=== PATIENT | male | born 1965 | race Caucasian/White ===

== ENCOUNTER 2019-01-11 16:40 | Emergency (ER) | payer MEDICARE, MEDICAID, SELFPAY ==
--- NOTE | 2019-01-11 19:57 | ED.GENADULT ---
HPI - General Adult General Stated complaint: SCIATICA PAIN History of Present Illness HPI narrative: Patient left without being seen. Related Data Home Medications Medication Instructions Recorded Confirmed amlodipine 10 mg PO QDAY #0 06/21/17 atorvastatin [Lipitor] 40 mg PO QDAY #0 06/21/17 gabapentin [Neurontin] 300 mg PO TID #0 06/21/17 insulin glargine [Basaglar KwikPen 100 unit SQ QDAY #0 06/21/17 U-100 Insulin] insulin glulisine U-100 [Apidra 25 unit SQ TID #0 06/21/17 SoloStar U-100 Insulin] lisinopril 40 mg PO QDAY #0 06/21/17 omeprazole 20 mg PO QDAY #0 06/21/17 Previous Rx's Medication Instructions Recorded cyclobenzaprine 5 mg PO TID PRN #14 tab 06/21/17 hydrocodone-acetaminophen [[place]] 1 tab PO Q4HP PRN #10 tab 06/21/17 [id number]-[id number] 1 - 2 tab PO Q4HP PRN #12 tab 06/24/17 Allergies Allergy/AdvReac Type Severity Reaction Status Date / Time No Known Allergies Allergy Uncoded 09/09/17 12:37 Discharge Plan Departure Patient Disposition: Left Without Being Seen Clinical Impression: Patient left without being seen Discharge Date/Time: 01/11/19 17:21 Interventions: ED Discharge Assessment Last Done: 01/11/19 17:17
== END 2019-01-11 17:21 | disposition left against medical advice (07) ==
PROVIDERS: Emergency Provider Emergency Medicine; Family Provider Nurse Practitioner Gerontology; PCP Nurse Practitioner Gerontology
DX: M54.9 Dorsalgia, unspecified (principal)
CPT/HCPCS: 99281

== ENCOUNTER 2019-02-21 23:31 | Emergency (ER) | payer MEDICARE, MEDICAID, SELFPAY ==
[2019-02-21 23:36] VITALS: BP 152/75; PULSE 82; RESP 16; TEMP 36.6; O2SAT 100; BMI 37.8
--- NOTE | 2019-02-21 23:50 | ED.CHESTPAIN ---
HPI - Chest Pain General Chief Complaint: Chest Pain Stated Complaint: states weird heart problem Time Seen by Provider: 02/21/19 23:35 Source: patient and family Mode of arrival: Wheelchair Limitations: no limitations History of Present Illness HPI narrative: 53-year-old male who is an insulin-dependent diabetic here for evaluation of multiple symptoms. He describes a left-sided chest discomfort. He states that it started earlier this afternoon his. Has been consistent since then. He also describes a headache and a pressure in his head. He also states that his blood sugars have been elevated recently. He is taking his medications. He is under quite a bit of stress secondary to mental health issues with his son. Has not tried anything for symptoms prior to arrival. States the left-sided chest pain is not worse with palpation or movement or breathing. It actually has improved somewhat since the onset however it is still there. Related Data Home Medications Medication Instructions Recorded Confirmed amlodipine 10 mg PO QDAY #0 06/21/17 atorvastatin [Lipitor] 40 mg PO QDAY #0 06/21/17 gabapentin [Neurontin] 300 mg PO TID #0 06/21/17 insulin glargine [Basaglar KwikPen 100 unit SQ QDAY #0 06/21/17 U-100 Insulin] insulin glulisine U-100 [Apidra 25 unit SQ TID #0 06/21/17 SoloStar U-100 Insulin] lisinopril 40 mg PO QDAY #0 06/21/17 omeprazole 20 mg PO QDAY #0 06/21/17 Previous Rx's Medication Instructions Recorded cyclobenzaprine 5 mg PO TID PRN #14 tab 06/21/17 hydrocodone-acetaminophen [[place]] 1 tab PO Q4HP PRN #10 tab 06/21/17 [id number]-[id number]-zvwy 1 - 2 tab PO Q4HP PRN #12 tab 06/24/17 Allergies Allergy/AdvReac Type Severity Reaction Status Date / Time No Known Allergies Allergy Uncoded 09/09/17 12:37 Review of Systems Constitutional Constitutional: Denies fever(s) and Reports headache(s) Eyes Eyes: Denies blurry vision and Denies change in vision ENT Ears, Nose, Mouth, and Throat: Reports headache(s) Cardiovascular Cardiovascular: Reports chest pain, Denies diaphoresis, Denies edema, Denies palpitations and Denies dyspnea Respiratory Respiratory: Denies cough and Denies dyspnea Gastrointestinal Gastrointestinal: Denies abdominal pain, Denies nausea and Denies vomiting Genitourinary Genitourinary: Denies dysuria Musculoskeletal Musculoskeletal: Denies myalgias and Denies arthralgias Integumentary/Breasts Skin/Breast: Denies lesions and Denies rash Neurologic Neurologic: Denies behavioral changes and Reports headache(s) Psychiatric Psychiatric: Denies behavioral changes Endocrine Endocrine: Denies palpitations Hematologic/Lymphatic Hematologic/Lymphatic: Denies easy bleeding and Denies easy bruising [facility] Medical History Diabetes (Acute) Hyperlipidemia (Acute) Hypertension (Acute) Social History marital status: lives independently: Yes Social History marital status: lives independently: Yes Exam Initial Vital Signs Initial Vital Signs: Vital Signs Temperature 97.9 F 02/21/19 23:36 Pulse Rate 82 02/21/19 23:36 Respiratory Rate 16 02/21/19 23:36 Blood Pressure 152/75 H 02/21/19 23:36 Pulse Oximetry 100 02/21/19 23:36 Const General: No comfortable (Uncomfortable), well developed and well groomed Orientation: alert, awake and oriented x3 HENMT Head: normal to inspection and normocephalic Nose: external nose normal Eyes Eyelids: eyelids normal Pupils: PERRL Resp Effort & Inspection: normal respiratory effort Auscultation: clear to auscultation bilaterally Cardio Rate: regular rate Rhythm: regular rhythm GI Inspection: non-distended Palpation: soft, No firm and No tender Skin Lesions: no lesions Rashes: no rashes Neuro General: alert and awake Cranial Nerves: CN's II-XI intact bilaterally Cognition: normal cognition Speech: speech normal Motor: muscle tone normal throughout Sensory Exam: no sensory deficits noted Extrem General: normal to inspection and capillary refill normal Psych Appearance: grossly normal and well kempt Course Orders Ordered: ED Orders 02/21/19 23:37 EKG-12 Lead Stat 02/21/19 23:45 Basic Metabolic Panel Stat Complete Blood Count AUTO DIFF Stat Partial Thromboplastin Time Stat Prothrombin Time INR Stat Troponin I Stat 02/21/19 23:51 XR chest 1V Stat 02/22/19 00:22 Ketones (Beta-Hydroxybutyrate) Stat Magnesium Stat Phosphorous Stat Venous Blood Gas Stat 02/22/19 01:32 CT head/brain wo con Stat 02/22/19 03:22 Basic Metabolic Panel Stat Troponin I Stat Discontinued Medications Diphenhydramine HCl (Benadryl) 25 mg IV NOW ONE Stop: 02/21/19 23:56 Last Admin: 02/22/19 00:29 Dose: 25 mg Documented by: STORMY Sodium Chloride (Normal Saline 0.9%) 1,000 mls @ 1,000 mls/hr IV BOLUS ONE Stop: 02/22/19 01:20 Last Infusion: 02/22/19 02:26 Dose: 0 mls/hr Documented by: Admin: 02/22/19 00:30 Dose: 1,000 mls/hr Documented by: STORMY Sodium Chloride (Normal Saline 0.9%) 1,000 mls @ 1,000 mls/hr IV BOLUS ONE Stop: 02/22/19 03:09 Last Admin: 02/22/19 02:27 Dose: 1,000 mls/hr Documented by: STORMY Metoclopramide HCl (Reglan) 10 mg IV NOW ONE Stop: 02/21/19 23:56 Last Admin: 02/22/19 00:29 Dose: 10 mg Documented by: STORMY Oxymetazoline HCl (Afrin) 2 sprays NASAL NOW ONE Stop: 02/22/19 02:27 Last Admin: 02/22/19 02:42 Dose: 2 sprays Documented by: STORMY Vital Signs Vital signs: Vital Signs - 8 hr 02/21/19 23:36 02/22/19 01:05 02/22/19 02:18 Temperature 97.9 F Pulse Rate 82 78 71 Respiratory Rate 16 17 15 Blood Pressure 152/75 H Blood Pressure [Right Arm] 128/71 115/65 Pulse Oximetry 100 92 95 02/22/19 04:33 Temperature Pulse Rate 74 Respiratory Rate 14 Blood Pressure 139/87 Blood Pressure [Right Arm] Pulse Oximetry 96 MDM - Chest Pain Medical Records Data Attestation: I reviewed the patient's medical records. Lab Data Attestation: I reviewed the patient's lab results. Result diagrams: 02/21/19 23:45 02/22/19 03:22 Labs: Lab Results 02/21/19 02/21/19 02/21/19 Range/Units 23:45 23:45 23:45 WBC 9.2 (4.5-11.0) X10^3/uL RBC 4.28 L (4.5-5.9) X10^6/uL Hgb 11.8 L (13.5-17.5) g/dL Hct 35.5 L (41-53) % MCV 82.9 (80-100) fL MCH 27.5 (26-34) PG MCHC 33.2 (30-36) % RDW 14.4 (11.6-14.8) % Plt Count 228 (150-400) X10^3/uL Neut % (Auto) 73.1 (50-75) % Lymph % (Auto) 19.5 L (25-40) % [place] % (Auto) 5.5 (3-14) % Eos % (Auto) 1.3 L (2-4) % Baso % (Auto) 0.6 (0-2) % Neut # (Auto) 6700 (4476-8462) /uL Lymph # (Auto) 1800 (7238-6382) /uL [place] # (Auto) 500 (0-900) /uL Eos # (Auto) 100 (0-450) /uL Baso # (Auto) 100 (0-100) /uL PT 10.0 L (10.1-12.7) SECONDS INR 0.9 (0.9-1.3) APTT 30 (26.4-36.2) SECONDS VBG pH (7.33-7.43) VBG pCO2 (45-50) mmHg VBG pO2 (35-45) mmHg VBG HCO3 (23-28) mmol/L VBG Total CO2 (24-29) mmol/L VBG O2 Saturation (70-75) % VBG Base Excess (0-4) mmol/L Sodium 129 L (137-145) mmol/L Potassium 5.2 H (3.4-5.1) mmol/L Chloride 93 L (98-107) mmol/L Carbon Dioxide 26 (22-32) mmol/L BUN 33 H (9-20) mg/dL Creatinine 2.10 H (0.66-1.25) mg/dL Estimated GFR 33.3 L (>60) mL/min BUN/Creatinine Ratio 15.7 (6-22) Glucose 675 H* (70-100) mg/dL Calcium 9.0 (8.4-10.2) mg/dL Phosphorus (2.5-4.5) mg/dL Magnesium (1.6-2.3) mg/dL Troponin I (0.01-0.034) ng/mL Ketones (<0.27) mmol/L 02/21/19 02/21/19 02/22/19 Range/Units 23:45 23:45 00:22 WBC (4.5-11.0) X10^3/uL RBC (4.5-5.9) X10^6/uL Hgb (13.5-17.5) g/dL Hct (41-53) % MCV (80-100) fL MCH (26-34) PG MCHC (30-36) % RDW (11.6-14.8) % Plt Count (150-400) X10^3/uL Neut % (Auto) (50-75) % Lymph % (Auto) (25-40) % [place] % (Auto) (3-14) % Eos % (Auto) (2-4) % Baso % (Auto) (0-2) % Neut # (Auto) (6596-2985) /uL Lymph # (Auto) (8805-5938) /uL [place] # (Auto) (0-900) /uL Eos # (Auto) (0-450) /uL Baso # (Auto) (0-100) /uL PT (10.1-12.7) SECONDS INR (0.9-1.3) APTT (26.4-36.2) SECONDS VBG pH 7.39 (7.33-7.43) VBG pCO2 39.3 L (45-50) mmHg VBG pO2 45 (35-45) mmHg VBG HCO3 24 (23-28) mmol/L VBG Total CO2 25 (24-29) mmol/L VBG O2 Saturation 81 H (70-75) % VBG Base Excess -1.0 L (0-4) mmol/L Sodium (137-145) mmol/L Potassium (3.4-5.1) mmol/L Chloride (98-107) mmol/L Carbon Dioxide (22-32) mmol/L BUN (9-20) mg/dL Creatinine (0.66-1.25) mg/dL Estimated GFR (>60) mL/min BUN/Creatinine Ratio (6-22) Glucose (70-100) mg/dL Calcium (8.4-10.2) mg/dL Phosphorus 3.9 (2.5-4.5) mg/dL Magnesium 2.0 (1.6-2.3) mg/dL Troponin I < 0.012 (0.01-0.034) ng/mL Ketones 0.14 (<0.27) mmol/L 02/22/19 Range/Units 03:22 WBC (4.5-11.0) X10^3/uL RBC (4.5-5.9) X10^6/uL Hgb (13.5-17.5) g/dL Hct (41-53) % MCV (80-100) fL MCH (26-34) PG MCHC (30-36) % RDW (11.6-14.8) % Plt Count (150-400) X10^3/uL Neut % (Auto) (50-75) % Lymph % (Auto) (25-40) % [place] % (Auto) (3-14) % Eos % (Auto) (2-4) % Baso % (Auto) (0-2) % Neut # (Auto) (0369-1995) /uL Lymph # (Auto) (4394-3005) /uL [place] # (Auto) (0-900) /uL Eos # (Auto) (0-450) /uL Baso # (Auto) (0-100) /uL PT (10.1-12.7) SECONDS INR (0.9-1.3) APTT (26.4-36.2) SECONDS VBG pH (7.33-7.43) VBG pCO2 (45-50) mmHg VBG pO2 (35-45) mmHg VBG HCO3 (23-28) mmol/L VBG Total CO2 (24-29) mmol/L VBG O2 Saturation (70-75) % VBG Base Excess (0-4) mmol/L Sodium 135 L (137-145) mmol/L Potassium 4.3 (3.4-5.1) mmol/L Chloride 100 (98-107) mmol/L Carbon Dioxide 26 (22-32) mmol/L BUN 32 H (9-20) mg/dL Creatinine 2.00 H (0.66-1.25) mg/dL Estimated GFR 35.3 L (>60) mL/min BUN/Creatinine Ratio 16.0 (6-22) Glucose 518 H* (70-100) mg/dL Calcium 8.3 L (8.4-10.2) mg/dL Phosphorus (2.5-4.5) mg/dL Magnesium (1.6-2.3) mg/dL Troponin I 0.016 (0.01-0.034) ng/mL Ketones (<0.27) mmol/L Point of Care Testing Glucose POC 500 Imaging Data Chest x-ray: Attestation: I personally reviewed and interpreted this imaging study as follows: My impression: No pneumonia, no pneumothorax, no acute pathology CT scan - head: Radiologist's impression: Preliminary read No acute intracranial pathology. Specifically, no intracranial mass, hemorrhage, or evidence of acute infarction. Chronic sinus mucosal disease ECG Data Attestation: I personally reviewed and interpreted this ECG as follows: Prior ECG tracings: not available for review Interpretation: Sinus rhythm Ventricular rate 84 Left anterior fascicular block LVH Normal QRS Normal QTC Nonspecific ST T wave changes MDM Narrative Medical decision making narrative: Initially had a strong suspicion that his symptoms were anxiety related given his history and physical exam. He was given Reglan and Benadryl for his headache/sinus pressure. He stated that he had minimal relief with the symptoms. He describes the symptoms as a head pressure. He was given Afrin which did seem to help his symptoms somewhat. His EKG was nonspecific. Troponin negative x2. Head CT was unremarkable. Patient was hyperglycemic. This did come down with fluids. He also states that he has not had his night dose of insulin. He is not in DKA. Not acidotic on the VBG. His creatinine is slightly elevated. This did improve somewhat with fluids. He states that he has an appointment with a kidney doctor in the next several days. I have low suspicion for CVA. Low suspicion for TIA. Low suspicion for ACS. His head pressure could very well be this sinus disease noted on the CT scan. We did discuss the use of decongestants. Patient was able to ambulate to the bathroom without any problems. No fevers. Low suspicion for meningitis. We discussed return precautions and follow-up instructions. He expressed understanding and agreement with plan. Discharge Plan Departure Patient Disposition: Home Clinical Impression: Hyperglycemia, Atypical chest pain, Sinus congestion Discharge Date/Time: 02/22/19 04:36 Instructions: DI for Hyperglycemia -- Adult Activity Restrictions/Additional Instructions: I recommend that when you get home you take your night dose of insulin. Also recommend you start on decongestant such as Claritin or Annmarie or Zyrtec or the generic version of 1 of these medications like we discussed. I also recommend that you contact your primary provider for follow-up. Keep your scheduled appointment with your kidney doctor in the next couple weeks. Return to the emergency department for any new or worsening symptoms Prescriptions: No Action amlodipine 10 MG tablet 10 mg PO QDAY Qty: 0 RF: 0 omeprazole 20 MG capsule,delayed release(DR/EC) 20 mg PO QDAY Qty: 0 RF: 0 lisinopril 40 MG tablet 40 mg PO QDAY Qty: 0 RF: 0 atorvastatin [Lipitor] 40 MG tablet 40 mg PO QDAY Qty: 0 RF: 0 gabapentin [Neurontin] 300 MG capsule 300 mg PO TID Qty: 0 RF: 0 insulin glargine [Basaglar KwikPen U-100 Insulin] 100 UNIT/1 ML insulin pen 100 unit SQ QDAY Qty: 0 RF: 0 insulin glulisine U-100 [Apidra SoloStar U-100 Insulin] 100 UNIT/1 ML insulin pen 25 unit SQ TID Qty: 0 RF: 0 hydrocodone-acetaminophen [[place]] 5 MG/325 MG tablet 1 tab PO Q4HP PRNQty: 10 RF: 0 cyclobenzaprine 5 MG tablet 5 mg PO TID PRNQty: 14 RF: 0 vmsmasustx-aenbsvmhqbfnx-trif 1 EACH tablet 1 - 2 tab PO Q4HP PRNQty: 12 RF: 0 Referrals: Dayna Hilliard ARNP [Primary Care Provider] -
--- NOTE | 2019-02-21 23:51 | DI.RAD.S_ITS ---
PROCEDURE: XR CHEST 1V INDICATIONS: chest pain TECHNIQUE: One view of the chest was acquired. COMPARISON: [facility], CHEST 1 VIEW, 06/24/2017, 17:47. [facility], CHEST 2 VIEW, 08/04/2017, 18:25. FINDINGS: Surgical changes and devices: None. Lungs and pleura: Lungs are clear. No pleural effusions or pneumothorax. Mediastinum: Mediastinal contours appear normal. Heart size is normal. Bones and chest wall: No suspicious bony lesions. Overlying soft tissues appear unremarkable. IMPRESSION: No acute cardiopulmonary disease. No significant discrepancy with the ER preliminary interpretation. Dictated by: Vinicio Mayo M.D. on 02/22/2019 at 9:26 Approved by: Vinicio Mayo M.D. on 02/22/2019 at 9:26
[2019-02-21 23:58] LABS: Add Manual Diff / Slide Review NO; Basophils Absolute Auto 100 /uL (0-100); Basophils Percent Auto 0.6 % (0-2); Eosinophils Absolute Auto 100 /uL (0-450); Eosinophils Percent Auto 1.3 % (2-4); Hematocrit 35.5 % (41-53); Hemoglobin 11.8 g/dL (13.5-17.5); Lymphocytes Absolute Auto 1800 /uL (1100-4500); Lymphocytes Percent Auto 19.5 % (25-40); Mean Corpuscular HGB Conc 33.2 % (30-36); Mean Corpuscular Hemoglobin 27.5 PG (26-34); Mean Corpuscular Volume 82.9 fL (80-100); Monocytes Absolute Auto 500 /uL (0-900); Monocytes Percent Auto 5.5 % (3-14); Neutrophils Absolute Auto 6700 /uL (1500-7000); Neutrophils Percent Auto 73.1 % (50-75); Platelet Count 228 X10^3/uL (150-400); Red Blood Cell Count 4.28 X10^6/uL (4.5-5.9); Red Cell Distribution Width 14.4 % (11.6-14.8); White Blood Cell Count 9.2 X10^3/uL (4.5-11.0)
[2019-02-21 23:59] LABS: INR 0.9 (0.9-1.3)
[2019-02-22 00:02] LABS: PTT Partial Thromboplastin Tim 30 SECONDS (26.4-36.2)
[2019-02-22 00:07] LABS: BUN Creatinine Ratio 15.7 (6-22); Blood Urea Nitrogen 33 mg/dL (9-20); Carbon Dioxide 26 mmol/L (22-32); Chloride 93 mmol/L (98-107); Estimated Glomerular Filt Rate 33.3 mL/min (>60); HEMOLYSIS < 15 (0-50); Potassium 5.2 mmol/L (3.4-5.1); Sodium 129 mmol/L (137-145)
[2019-02-22 00:16] LABS: Troponin I < 0.012 ng/mL (0.01-0.034)
[2019-02-22 00:20] LABS: Glucose 675 mg/dL (70-100)
[2019-02-22] MEDS: diphenhydrAMINE 50 MG/ML VIAL 25 MG IV (00:29)
[2019-02-22] MEDS: METOCLOPRAMIDE 10 MG/2 ML INJ IV (00:29)
[2019-02-22] MEDS: SODIUM CHLORIDE 0.9% 1,000 ML 1000 ML IV ×2 (00:30→02:27)
[2019-02-22 00:39] LABS: Phosphorous 3.9 mg/dL (2.5-4.5)
[2019-02-22 00:41] LABS: Ketones (Beta-Hydroxybutyrate) 0.14 mmol/L (<0.27)
[2019-02-22 00:52] LABS: pH VBG 7.39 (7.33-7.43)
[2019-02-22 00:53] LABS: HCO3 VBG 24 mmol/L (23-28); Oxygen Saturation VBG 81 % (70-75); PCO2 VBG 39.3 mmHg (45-50); PO2 VBG 45 mmHg (35-45); Total CO2 VBG 25 mmol/L (24-29)
[2019-02-22 01:05] VITALS: BP 128/71; PULSE 78; RESP 17; O2SAT 92
--- NOTE | 2019-02-22 01:32 | DI.CT.S_ITS ---
PROCEDURE: CT HEAD/BRAIN WO CON INDICATIONS: Headache TECHNIQUE: Noncontrast 4.5 mm thick angled axial sections acquired from the foramen magnum to the vertex, with coronal and sagittal reformats. For radiation dose reduction, the following was used: automated exposure control, adjustment of mA and/or kV according to patient size. COMPARISON: None. FINDINGS: Image quality: Excellent. CSF spaces: Basal cisterns are patent. No extra-axial fluid collections. Ventricles are normal in size and shape. Brain: No midline shift. No intracranial masses or hemorrhage. Pepe-white matter interface is normal. Skull and face: Calvarium and visualized facial bones are intact, without suspicious lesions. Sinuses: Visualized sinuses and mastoids are clear. IMPRESSION: 1. No acute intracranial abnormalities. No significant discrepancy with the awake overnight counselor radiology preliminary report. Dictated by: Vinicio Mayo M.D. on 02/22/2019 at 6:57 Approved by: Vinicio Mayo M.D. on 02/22/2019 at 6:59
[2019-02-22 02:18] VITALS: BP 115/65; PULSE 71; RESP 15; O2SAT 95
[2019-02-22] MEDS: OXYMETAZOLINE NASAL SPRAY 30 ML 2 SPRAYS NASAL (02:42)
--- NOTE | 2019-02-22 02:48 | PC.NURSE ---
pt reported his head is feeling better but there is still alot of pressure. He states he doesn't want pain medications. Provider discussed with pt and ordered afrin. Pt resting on stretcher with towel over eyes for comfort. He reports his nose is super stuffed up and he's not sure the afrin he got is going to help because it didn't go in very far. he agreed to wait a while and see if it takes effect.
[2019-02-22 03:40] LABS: Blood Urea Nitrogen 32 mg/dL (9-20); Calcium 8.3 mg/dL (8.4-10.2); Carbon Dioxide 26 mmol/L (22-32); Chloride 100 mmol/L (98-107); Estimated Glomerular Filt Rate 35.3 mL/min (>60); HEMOLYSIS < 15 (0-50); Potassium 4.3 mmol/L (3.4-5.1); Sodium 135 mmol/L (137-145)
--- NOTE | 2019-02-22 03:40 | PC.NURSE ---
drawn by lab
[2019-02-22 03:47] LABS: Glucose 518 mg/dL (70-100)
[2019-02-22 03:52] LABS: Troponin I 0.016 ng/mL (0.01-0.034)
[2019-02-22 04:33] VITALS: BP 139/87; PULSE 74; RESP 14; O2SAT 96
== END 2019-02-22 04:36 | disposition home or self-care (01) ==
PROVIDERS: Emergency Provider Emergency Medicine; Family Provider Nurse Practitioner Gerontology; PCP Nurse Practitioner Gerontology
DX: R07.89 Other chest pain (principal); R73.9 Hyperglycemia, unspecified; R09.81 Nasal congestion; R51 Headache
CPT/HCPCS: 36415; 70450; 71045; 80048; 82009; 82805; 82962; 83735; 84100; 84484; 85025; 85610; 85730; 93005; 93010; 96361; 96374; 96375; 99283; 99285; J1200; J2765

== ENCOUNTER 2019-03-02 16:58 | Emergency (ER) | payer MEDICARE, MEDICAID, SELFPAY ==
[2019-03-02 17:30] VITALS: BP 156/90; PULSE 101; RESP 16; TEMP 36.6; O2SAT 100; BMI 40.1
[2019-03-02 19:14] VITALS: BP 157/93; PULSE 99; RESP 16; TEMP 36.9; O2SAT 100
[2019-03-02] MEDS: ONDANSETRON 4 MG/2 ML INJ IV (19:34)
[2019-03-02] MEDS: diazePAM 10 MG/2 ML SYRINGE 5 MG IV ×2 (19:34→21:31)
[2019-03-02] MEDS: SODIUM CHLORIDE 0.9% 1,000 ML 1000 ML IV (19:35)
[2019-03-02] MEDS: PANTOPRAZOLE 40 MG VIAL IV (19:35)
[2019-03-02] MEDS: MORPHINE 4 MG/ML INJ IV ×2 (19:35→21:31)
[2019-03-02 19:56] LABS: Add Manual Diff / Slide Review NO; Basophils Absolute Auto 100 /uL (0-100); Basophils Percent Auto 0.6 % (0-2); Eosinophils Absolute Auto 100 /uL (0-450); Eosinophils Percent Auto 0.6 % (2-4); Hematocrit 38.6 % (41-53); Hemoglobin 12.9 g/dL (13.5-17.5); Lymphocytes Absolute Auto 1600 /uL (1100-4500); Lymphocytes Percent Auto 16.2 % (25-40); Mean Corpuscular HGB Conc 33.3 % (30-36); Mean Corpuscular Hemoglobin 27.2 PG (26-34); Mean Corpuscular Volume 81.6 fL (80-100); Monocytes Absolute Auto 600 /uL (0-900); Monocytes Percent Auto 6.7 % (3-14); Neutrophils Absolute Auto 7300 /uL (1500-7000); Neutrophils Percent Auto 75.9 % (50-75); Platelet Count 230 X10^3/uL (150-400); Red Blood Cell Count 4.73 X10^6/uL (4.5-5.9); Red Cell Distribution Width 14.1 % (11.6-14.8); White Blood Cell Count 9.7 X10^3/uL (4.5-11.0)
[2019-03-02 20:08] LABS: Lactate (Lactic Acid) 1.6 mmol/L (0.7-2.1)
[2019-03-02 20:09] LABS: Alanine Aminotransferase 19 IU/L (21-72); Albumin 4.1 g/dL (3.5-5.0); Albumin Globulin Ratio 1.2 (1.0-2.8); Alkaline Phosphatase 150 U/L (38-126); Aspartate Aminotransferase 17 IU/L (17-59); BUN Creatinine Ratio 12.5 (6-22); Bilirubin Total 0.6 mg/dL (0.2-1.3); Blood Urea Nitrogen 25 mg/dL (9-20); Carbon Dioxide 21 mmol/L (22-32); Chloride 97 mmol/L (98-107); Estimated Glomerular Filt Rate 35.3 mL/min (>60); Globulin 3.3 g/dL (1.7-4.1); Glucose 374 mg/dL (70-100); HEMOLYSIS < 15 (0-50); Potassium 4.6 mmol/L (3.4-5.1); Sodium 134 mmol/L (137-145); Total Protein 7.4 g/dL (6.3-8.2)
[2019-03-02] MEDS: predniSONE 20 MG TABLET 40 MG PO (20:20)
[2019-03-02 21:30] VITALS: BP 168/93; PULSE 92; RESP 11; O2SAT 98
[2019-03-02 22:00] VITALS: BP 144/86; PULSE 87; RESP 16; O2SAT 99
[2019-03-02 23:00] VITALS: BP 133/70; PULSE 90; RESP 18; O2SAT 98
[2019-03-02 23:08] LABS: Bacteria Urine None Seen; RBC Urine None Seen (0-5/HPF); WBC Urine None Seen (0-5/HPF)
[2019-03-02 23:38] LABS: Culture Indicated Urine Cult Not Indicated; Squamous Epithelial Cell Urine 1-5 /HPF (0-5/HPF)
--- NOTE | 2019-03-03 04:02 | ED_ITS ---
HPI - Back Pain/Injury <BRIANNA Murray - Last Filed: 03/03/19 04:31> General Chief Complaint: Back Pain/Injury Stated Complaint: states his sciatic is out Time Seen by Provider: 03/02/19 19:09 Source: patient Mode of arrival: Wheelchair Limitations: no limitations History of Present Illness HPI Narrative: This is a 53-year-old gentleman, nonsmoker, who presents to ED with a spouse with chief complain of severe mid low back pain that radiates to sacrum since this a.m. At times he feels sciatic pain to his left hip. He had remote history of back injury. Patient reports he has been feeling ill and has been having nausea and vomiting and constipation for last 2-3 days. He had taken magnesium citrate for this had that on a toilet few times and strained his back. Patient reports he is nauseated from severe pain and also feels acid reflux which is worsening his stomach discomfort. He denies fever, chills. Patient reports he thinks had a urinated last time this morning. Patient denies saddle anesthesia. Denies incontinence for stool and urination. Patient reports movement worsens his discomfort in his back. Patient was seen in the ED several days ago with elevated blood sugar. He had not been able to follow up with his primary care physician since this was canceled by the physician's office. Patient denies other urinary symptoms such as dysuria, urinary marcos quency. Related Data Home Medications Medication Instructions Recorded Confirmed amlodipine 10 mg PO DAILY #0 06/21/17 03/02/19 atorvastatin [Lipitor] 40 mg PO DAILY #0 06/21/17 03/02/19 gabapentin [Neurontin] 300 mg PO TID #0 06/21/17 insulin glargine [Basaglar KwikPen 100 unit SQ QDAY #0 06/21/17 U-100 Insulin] insulin glulisine U-100 [Apidra 25 unit SQ TID #0 06/21/17 SoloStar U-100 Insulin] lisinopril 40 mg PO QDAY #0 06/21/17 omeprazole 20 mg PO QDAY #0 06/21/17 Previous Rx's Medication Instructions Recorded cyclobenzaprine 5 mg PO TID PRN #14 tab 06/21/17 hydrocodone-acetaminophen [[place]] 1 tab PO Q4HP PRN #10 tab 06/21/17 oalbbivpof-ohjkvcqljibqn-fhve 1 - 2 tab PO Q4HP PRN #12 tab 06/24/17 cyclobenzaprine 5 mg PO BID PRN #10 tab 03/02/19 ondansetron 4 mg PO TID PRN 4 Days tab 03/02/19 prednisone 40 mg PO DAILY 4 Days #8 tab 03/02/19 tramadol 50 mg PO BID PRN #10 tab 03/02/19 Allergies Allergy/AdvReac Type Severity Reaction Status Date / Time No Known Drug Allergies Allergy Verified 03/02/19 19:27 Review of Systems <BRIANNA Murray - Last Filed: 03/03/19 04:31> Review of Systems Narrative: General: See HPI HEENT: Denies sinus pain, ear pain, sore throat, difficulty swallowing, dizziness. Respiratory: Denies dyspnea, cough, wheezing, hemoptysis, sputum. Cardiovascular: Denies chest pain, palpitations, orthopnea, edema. Gastrointestinal: See HPI : Denies dysuria, frequency, incontinence, hematuria, urinary retention. Musculoskeletal: See HPI Skin: Denies rash, skin lesions, or other. Neurologic: Denies weakness, headache, numbness, change in speech, confusion, seizures, incoordination. Psychiatric: No concerning psychosocial issues. 12-point review of systems is negative except for those stated above. PFSH <BRIANNA Murray - Last Filed: 03/03/19 04:31> Medical History (Updated 03/03/19 @ 04:11 by BRIANNA Murray) Back pain (Acute) Diabetes (Acute) Hyperlipidemia (Acute) Hypertension (Acute) Ventral hernia (Acute) Surgical History (Updated 03/03/19 @ 04:11 by BRIANNA Murray) History of appendectomy (Acute) Social History marital status: lives independently: Yes Smoking Status: Never smoker Social History marital status: lives independently: Yes Smoking Status: Never smoker Exam <BRIANNA Murray - Last Filed: 03/03/19 04:31> Narrative Exam Narrative: GEN: Alert, oriented x 3, well appearing and nourished, and in moderate distress. Head: Normal cephalic, atraumatic. No scalp or temporal tenderness, palpable mass or rash. EYES: Pupils are equal, round, and reactive to light and accommodation. Extraocular muscles are intact bilaterally. There is no subconjunctival hemorrhage, exudate and sclera non-icteric. ENT: Hearing grossly intact. Nose without bleeding, purulent discharge or deviation. Mucous membrane moist, no mucosal lesion. Throat without erythema, tonsillar hypertrophy or exudate. Uvula in midline, airway patent. Neck: Trachea in midline. No JVD, non-tender without lymphadenopathy. No masses or thyroid megaly. Supple, non-tender and no meningeal signs. CARDIAC: Normal regular rate and rhythm without murmurs, gallops, or rubs. No chest wall tenderness. No peripheral edema, cyanosis or pallor. Capillary refill is less than 2 seconds. RESPIRATORY: Lungs are cleat to auscultate bilaterally. No cough, wheezes, rales, or rhonchi. No stridor, respiratory distress, increase work of breathing, or accessary muscle used. ABD: Abdomen soft and non-distended. No guarding or rebound tenderness to palpate. Bowel sounds are normal in all 4 quadrants. There is no palpable masses or organomegaly. EXT: Full painless ROM of all extremities with no loss of sensation, strength, effusion or edema. SKIN: Warm, dry, normal color for patient. No erythema, lesions or rash over visible areas. NEUROLOGICAL: Alert and oriented to place, time and person. Sensation and motor function intact bilaterally. No facial droops, dysphasia. PSYCHIATRIC: Good judgement and reason, without hallucinations, abnormal affect or abnormal behaviors during the examination. Initial Vital Signs Initial Vital Signs: Vital Signs Temperature 97.9 F 03/02/19 17:30 Pulse Rate 101 H 03/02/19 17:30 Respiratory Rate 16 03/02/19 17:30 Blood Pressure 156/90 H 03/02/19 17:30 Pulse Oximetry 100 03/02/19 17:30 Back/Spine/Pelvis Back: normal to inspection, back tenderness, No crepitance, No CVA tenderness, No ecchymosis, No erythema, No mass, No sacral edema and No warmth Thoracic/Lumbar Spine: thoracic and lumbar spine normal to inspection, No surgical scar(s) present, pain with thoraco-lumbar ROM, paraspinal tenderness and lumbar spinal tenderness <Fady Armas MD - Last Filed: 03/03/19 07:03> Initial Vital Signs Initial Vital Signs: Vital Signs Temperature 97.9 F 03/02/19 17:30 Pulse Rate 101 H 03/02/19 17:30 Respiratory Rate 16 03/02/19 17:30 Blood Pressure 156/90 H 03/02/19 17:30 Pulse Oximetry 100 03/02/19 17:30 Course <BRIANNA Murray - Last Filed: 03/03/19 04:31> Orders Ordered: ED Orders 03/02/19 22:20 Urine Microscopic Stat Discontinued Medications Diazepam (Valium) 5 mg IV NOW ONE Stop: 03/02/19 19:22 Last Admin: 03/02/19 19:34 Dose: 5 mg Documented by: GARO Diazepam (Valium) 5 mg IV NOW ONE Stop: 03/02/19 21:26 Last Admin: 03/02/19 21:31 Dose: 5 mg Documented by: GARO Sodium Chloride (Normal Saline 0.9%) 1,000 mls @ 1,000 mls/hr IV BOLUS ONE Stop: 03/02/19 20:20 Last Infusion: 03/02/19 21:00 Dose: 1,000 mls/hr Documented by: Admin: 03/02/19 19:35 Dose: 1,000 mls/hr Documented by: GARO Morphine Sulfate (Morphine) 4 mg IV NOW ONE Stop: 03/02/19 19:26 Last Admin: 03/02/19 19:35 Dose: 4 mg Documented by: GARO Morphine Sulfate (Morphine) 4 mg IV NOW ONE Stop: 03/02/19 21:26 Last Admin: 03/02/19 21:31 Dose: 4 mg Documented by: GARO Ondansetron HCl (Zofran) 4 mg IV NOW ONE Stop: 03/02/19 19:22 Last Admin: 03/02/19 19:34 Dose: 4 mg Documented by: GARO Pantoprazole Sodium (Protonix) 40 mg IV NOW ONE Stop: 03/02/19 19:22 Last Admin: 03/02/19 19:35 Dose: 40 mg Documented by: GARO Prednisone (Deltasone) 40 mg PO NOW ONE Stop: 03/02/19 20:05 Last Admin: 03/02/19 20:20 Dose: 40 mg Documented by: GARO Vital Signs Vital signs: Vital Signs - 8 hr 03/02/19 21:30 03/02/19 22:00 03/02/19 23:00 Pulse Rate 92 H 87 90 Respiratory Rate 11 L 16 18 Blood Pressure 133/70 Blood Pressure [Left Arm] 168/93 H 144/86 H Pulse Oximetry 98 99 98 <Fady Armas MD - Last Filed: 03/03/19 07:03> Orders Ordered: ED Orders 03/02/19 22:20 Urine Microscopic Stat Discontinued Medications Diazepam (Valium) 5 mg IV NOW ONE Stop: 03/02/19 19:22 Last Admin: 03/02/19 19:34 Dose: 5 mg Documented by: GARO Diazepam (Valium) 5 mg IV NOW ONE Stop: 03/02/19 21:26 Last Admin: 03/02/19 21:31 Dose: 5 mg Documented by: GARO Sodium Chloride (Normal Saline 0.9%) 1,000 mls @ 1,000 mls/hr IV BOLUS ONE Stop: 03/02/19 20:20 Last Infusion: 03/02/19 21:00 Dose: 1,000 mls/hr Documented by: Admin: 03/02/19 19:35 Dose: 1,000 mls/hr Documented by: GARO Morphine Sulfate (Morphine) 4 mg IV NOW ONE Stop: 03/02/19 19:26 Last Admin: 03/02/19 19:35 Dose: 4 mg Documented by: GARO Morphine Sulfate (Morphine) 4 mg IV NOW ONE Stop: 03/02/19 21:26 Last Admin: 03/02/19 21:31 Dose: 4 mg Documented by: GARO Ondansetron HCl (Zofran) 4 mg IV NOW ONE Stop: 03/02/19 19:22 Last Admin: 03/02/19 19:34 Dose: 4 mg Documented by: GARO Pantoprazole Sodium (Protonix) 40 mg IV NOW ONE Stop: 03/02/19 19:22 Last Admin: 03/02/19 19:35 Dose: 40 mg Documented by: AGRO Prednisone (Deltasone) 40 mg PO NOW ONE Stop: 03/02/19 20:05 Last Admin: 03/02/19 20:20 Dose: 40 mg Documented by: GARO Vital Signs Vital signs: Vital Signs - 8 hr 03/02/19 21:30 03/02/19 22:00 03/02/19 23:00 Pulse Rate 92 H 87 90 Respiratory Rate 11 L 16 18 Blood Pressure 133/70 Blood Pressure [Left Arm] 168/93 H 144/86 H Pulse Oximetry 98 99 98 MDM - Back Pain/Injury <BRIANNA Murray - Last Filed: 03/03/19 04:31> Differential Diagnosis Differential diagnosis: Likely lumbar radiculopathy, sciatica, strain of lumbar region and pyelonephritis Medical Records Attestation: I reviewed the patient's medical records. Lab Data Attestation: I reviewed the patient's lab results. Result diagrams: 03/02/19 19:40 03/02/19 19:40 Labs: Lab Results 03/02/19 03/02/19 03/02/19 Range/Units 19:40 19:40 19:40 WBC 9.7 (4.5-11.0) X10^3/uL RBC 4.73 (4.5-5.9) X10^6/uL Hgb 12.9 L (13.5-17.5) g/dL Hct 38.6 L (41-53) % MCV 81.6 (80-100) fL MCH 27.2 (26-34) PG MCHC 33.3 (30-36) % RDW 14.1 (11.6-14.8) % Plt Count 230 (150-400) X10^3/uL Neut % (Auto) 75.9 H (50-75) % Lymph % (Auto) 16.2 L (25-40) % [place] % (Auto) 6.7 (3-14) % Eos % (Auto) 0.6 L (2-4) % Baso % (Auto) 0.6 (0-2) % Neut # (Auto) 7300 H (5527-2954) /uL Lymph # (Auto) 1600 (3429-5033) /uL [place] # (Auto) 600 (0-900) /uL Eos # (Auto) 100 (0-450) /uL Baso # (Auto) 100 (0-100) /uL Sodium 134 L (137-145) mmol/L Potassium 4.6 (3.4-5.1) mmol/L Chloride 97 L (98-107) mmol/L Carbon Dioxide 21 L (22-32) mmol/L BUN 25 H (9-20) mg/dL Creatinine 2.00 H (0.66-1.25) mg/dL Estimated GFR 35.3 L (>60) mL/min BUN/Creatinine Ratio 12.5 (6-22) Glucose 374 H D (70-100) mg/dL Lactate 1.6 (0.7-2.1) mmol/L Calcium 10.0 (8.4-10.2) mg/dL Total Bilirubin 0.6 (0.2-1.3) mg/dL AST 17 (17-59) IU/L ALT 19 L (21-72) IU/L Alkaline Phosphatase 150 H (38-126) U/L Total Protein 7.4 (6.3-8.2) g/dL Albumin 4.1 (3.5-5.0) g/dL Globulin 3.3 (1.7-4.1) g/dL Albumin/Globulin Ratio 1.2 (1.0-2.8) Urine RBC (0-5/HPF) Urine WBC (0-5/HPF) Ur Squamous Epith Cells (0-5/HPF) Urine Bacteria (None) Ur Culture Indicated? 03/02/19 Range/Units 22:20 WBC (4.5-11.0) X10^3/uL RBC (4.5-5.9) X10^6/uL Hgb (13.5-17.5) g/dL Hct (41-53) % MCV (80-100) fL MCH (26-34) PG MCHC (30-36) % RDW (11.6-14.8) % Plt Count (150-400) X10^3/uL Neut % (Auto) (50-75) % Lymph % (Auto) (25-40) % [place] % (Auto) (3-14) % Eos % (Auto) (2-4) % Baso % (Auto) (0-2) % Neut # (Auto) (4658-1750) /uL Lymph # (Auto) (6664-3506) /uL [place] # (Auto) (0-900) /uL Eos # (Auto) (0-450) /uL Baso # (Auto) (0-100) /uL Sodium (137-145) mmol/L Potassium (3.4-5.1) mmol/L Chloride (98-107) mmol/L Carbon Dioxide (22-32) mmol/L BUN (9-20) mg/dL Creatinine (0.66-1.25) mg/dL Estimated GFR (>60) mL/min BUN/Creatinine Ratio (6-22) Glucose (70-100) mg/dL Lactate (0.7-2.1) mmol/L Calcium (8.4-10.2) mg/dL Total Bilirubin (0.2-1.3) mg/dL AST (17-59) IU/L ALT (21-72) IU/L Alkaline Phosphatase (38-126) U/L Total Protein (6.3-8.2) g/dL Albumin (3.5-5.0) g/dL Globulin (1.7-4.1) g/dL Albumin/Globulin Ratio (1.0-2.8) Urine RBC None seen (0-5/HPF) Urine WBC None seen (0-5/HPF) Ur Squamous Epith Cells 1-5 /hpf (0-5/HPF) Urine Bacteria None seen (None) Ur Culture Indicated? Cult not indicated Urine Dip Bedside Urine Glucose 1000 mg/dl Bedside Urine Bilirubin - Negative Bedside Urine Ketone ++ 40 Urine Specific [place] 1.010 Bedside Urine Occult Blood +/- Bedside Urine pH 6.0 Bedside Urine Protein ++ 100 Bedside Urine Urobilinogen - Negative Bedside Urine Nitrite - Negative Bedside Urine Leukocytes - Negative Esterase ECG Data Attestation: I personally reviewed and interpreted this ECG as follows: Prior ECG tracings: available for review Interpretation: Sinus rhythm rate at 92. L axis with L anterior fascicular block Non specific T wave abnormality No significant changes from previous EKGs [facility] Narrative Medical decision making narrative: This is 53-year-old gentleman who has significant history of insulin dependent diabetes with nausea, vomiting for last 3 days and had developed constipation. Patient had taken magnesium citrate and attempted to be moved bowel and strained his back. He has remote history of low back pain and degenerative disease. He reports some abdominal pain from straining his abdominal muscle from repeated vomiting and GERD like discomfort. Patient states had urinated once today and has history of decreased renal function and GFR around that 35. His oral mucous membrane was dry was hydrated with normal saline with 1 liter, medicated with Zofran for nausea and pantoprazole for abdominal acidic discomfort. Patient reports nausea and abdominal pain improved. Patient was medicated with morphine and Valium for severe back pain. Given patient has decreased kidney function, NSAIDs were held at this time. However decided to medicate patient with prednisone despite this may increase patient's blood sugar. EKG was sinus rhythm without significant changes from previous EKGs. Kidney functions at patient's baseline. Patient voided small amount of urine after a L of infusion and bladder scanner showed 300 mL of urine in bladder. Urine does not appears to be infected and shows no RBC was appreciated to be considered for kidney stone. There was no increase in WBC or lactate. Patient's blood glucose was 374 and this was treated with normal saline and patient reports has not had night dose of insulin due to decreased solid intake. Patient advised to uses insulin according to the scale since his blood sugar may increase due to prednisone and stress reaction. Patient was able to tolerate ice chips before discharged to home. Additional morphine and Valium for unrelieved pain. Patient discharged to home with on then sterile for hydration, prednisone, tramadol and Flexeril for back pain. Advised to follow up with primary care physician and return precautions were discussed with patient and patient. X-ray has taken at this time due to patient does not have history of osteopenia or osteoporosis and this is nontraumatic back pain. However, patient advised if symptoms persist may need further imaging test and physical therapy would help. Spouse states patient used all his available physical therapy sessions for this year. No CT of abdomen her x- ray were obtained due to patient's abdominal discomfort had improved after pantoprazole and Zofran without vomiting. Patient and spouse agree with treatment plan and verbalized understanding. <Fady Armas MD - Last Filed: 03/03/19 07:03> Lab Data Labs: Lab Results 03/02/19 03/02/19 03/02/19 Range/Units 19:40 19:40 19:40 WBC 9.7 (4.5-11.0) X10^3/uL RBC 4.73 (4.5-5.9) X10^6/uL Hgb 12.9 L (13.5-17.5) g/dL Hct 38.6 L (41-53) % MCV 81.6 (80-100) fL MCH 27.2 (26-34) PG MCHC 33.3 (30-36) % RDW 14.1 (11.6-14.8) % Plt Count 230 (150-400) X10^3/uL Neut % (Auto) 75.9 H (50-75) % Lymph % (Auto) 16.2 L (25-40) % [place] % (Auto) 6.7 (3-14) % Eos % (Auto) 0.6 L (2-4) % Baso % (Auto) 0.6 (0-2) % Neut # (Auto) 7300 H (6129-2278) /uL Lymph # (Auto) 1600 (9711-2997) /uL [place] # (Auto) 600 (0-900) /uL Eos # (Auto) 100 (0-450) /uL Baso # (Auto) 100 (0-100) /uL Sodium 134 L (137-145) mmol/L Potassium 4.6 (3.4-5.1) mmol/L Chloride 97 L (98-107) mmol/L Carbon Dioxide 21 L (22-32) mmol/L BUN 25 H (9-20) mg/dL Creatinine 2.00 H (0.66-1.25) mg/dL Estimated GFR 35.3 L (>60) mL/min BUN/Creatinine Ratio 12.5 (6-22) Glucose 374 H D (70-100) mg/dL Lactate 1.6 (0.7-2.1) mmol/L Calcium 10.0 (8.4-10.2) mg/dL Total Bilirubin 0.6 (0.2-1.3) mg/dL AST 17 (17-59) IU/L ALT 19 L (21-72) IU/L Alkaline Phosphatase 150 H (38-126) U/L Total Protein 7.4 (6.3-8.2) g/dL Albumin 4.1 (3.5-5.0) g/dL Globulin 3.3 (1.7-4.1) g/dL Albumin/Globulin Ratio 1.2 (1.0-2.8) Urine RBC (0-5/HPF) Urine WBC (0-5/HPF) Ur Squamous Epith Cells (0-5/HPF) Urine Bacteria (None) Ur Culture Indicated? 03/02/19 Range/Units 22:20 WBC (4.5-11.0) X10^3/uL RBC (4.5-5.9) X10^6/uL Hgb (13.5-17.5) g/dL Hct (41-53) % MCV (80-100) fL MCH (26-34) PG MCHC (30-36) % RDW (11.6-14.8) % Plt Count (150-400) X10^3/uL Neut % (Auto) (50-75) % Lymph % (Auto) (25-40) % [place] % (Auto) (3-14) % Eos % (Auto) (2-4) % Baso % (Auto) (0-2) % Neut # (Auto) (8865-3312) /uL Lymph # (Auto) (5578-1855) /uL [place] # (Auto) (0-900) /uL Eos # (Auto) (0-450) /uL Baso # (Auto) (0-100) /uL Sodium (137-145) mmol/L Potassium (3.4-5.1) mmol/L Chloride (98-107) mmol/L Carbon Dioxide (22-32) mmol/L BUN (9-20) mg/dL Creatinine (0.66-1.25) mg/dL Estimated GFR (>60) mL/min BUN/Creatinine Ratio (6-22) Glucose (70-100) mg/dL Lactate (0.7-2.1) mmol/L Calcium (8.4-10.2) mg/dL Total Bilirubin (0.2-1.3) mg/dL AST (17-59) IU/L ALT (21-72) IU/L Alkaline Phosphatase (38-126) U/L Total Protein (6.3-8.2) g/dL Albumin (3.5-5.0) g/dL Globulin (1.7-4.1) g/dL Albumin/Globulin Ratio (1.0-2.8) Urine RBC None seen (0-5/HPF) Urine WBC None seen (0-5/HPF) Ur Squamous Epith Cells 1-5 /hpf (0-5/HPF) Urine Bacteria None seen (None) Ur Culture Indicated? Cult not indicated Urine Dip Bedside Urine Glucose 1000 mg/dl Bedside Urine Bilirubin - Negative Bedside Urine Ketone ++ 40 Urine Specific [place] 1.010 Bedside Urine Occult Blood +/- Bedside Urine pH 6.0 Bedside Urine Protein ++ 100 Bedside Urine Urobilinogen - Negative Bedside Urine Nitrite - Negative Bedside Urine Leukocytes - Negative Esterase Discharge Plan Departure Patient Disposition: Home Clinical Impression: Low back pain Qualifiers: Chronicity: unspecified Back pain laterality: bilateral Sciatica presence: unspecified whether sciatica present Qualified Code(s): M54.5 - Low back pain Discharge Date/Time: 03/02/19 23:00 Instructions: DI for Low Back Pain Activity Restrictions/Additional Instructions: You have been diagnosed with [nausea/vomiting, low back pain/strain. Your EKG unchanged from previous ones. Your blood sugar was moderately elevated to 300's and kidney function test was your base line. Your urine does not appear to be infected. You were medicated with several medications for nausea, vomiting, back pain and abdominal discomfort]. What to do: *Take your medications as directed. Tramadol and cyclobenzaprine may cause drowsiness so please take precaution such as not driving, drinking alcohol or operating heavy equipments. This may cause constipation as well so and fluids and high-fiber in your diets. Prednisone may cause increase in blood sugar, upset stomach. *Follow up with your primary care provider in 2-3 days, call for an appointment. Let them know you were seen in the ED and that we asked you to be seen in follow up. *Return to ED if you have any new, worsening, or concerning symptoms, such as [chest pain, breathing difficulty, to tolerate fluids, fever, increasing pain, groin numbness, incontinence, weakness to lower extremities or any acute concerns]. Prescriptions: New ondansetron 4 mg tablet,disintegrating 4 mg PO TID PRN (Reason: nausea and vomiting) 4 Days RF: 0 prednisone 20 mg tablet 40 mg PO DAILY 4 Days Qty: 8 RF: 0 tramadol 50 mg tablet 50 mg PO BID PRN (Reason: pain) Qty: 10 RF: 0 cyclobenzaprine 5 mg tablet 5 mg PO BID PRN (Reason: muscle spasm) Qty: 10 RF: 0 No Action amlodipine 10 MG tablet 10 mg PO DAILY Qty: 0 RF: 0 omeprazole 20 MG capsule,delayed release(DR/EC) 20 mg PO QDAY Qty: 0 RF: 0 lisinopril 40 MG tablet 40 mg PO QDAY Qty: 0 RF: 0 atorvastatin [Lipitor] 40 MG tablet 40 mg PO DAILY Qty: 0 RF: 0 gabapentin [Neurontin] 300 MG capsule 300 mg PO TID Qty: 0 RF: 0 insulin glargine [Basaglar KwikPen U-100 Insulin] 100 UNIT/1 ML insulin pen 100 unit SQ QDAY Qty: 0 RF: 0 insulin glulisine U-100 [Apidra SoloStar U-100 Insulin] 100 UNIT/1 ML insulin pen 25 unit SQ TID Qty: 0 RF: 0 hydrocodone-acetaminophen [[place]] 5 MG/325 MG tablet 1 tab PO Q4HP PRNQty: 10 RF: 0 cyclobenzaprine 5 MG tablet 5 mg PO TID PRNQty: 14 RF: 0 knvhulsbmx-oanbjwstfnnqc-jltv 1 EACH tablet 1 - 2 tab PO Q4HP PRNQty: 12 RF: 0 Referrals: Dayna Hilliard ARNP [Primary Care Provider] -
== END 2019-03-02 23:00 | disposition home or self-care (01) ==
PROVIDERS: Emergency Provider Nurse Practitioner Family; Family Provider Nurse Practitioner Gerontology; PCP Nurse Practitioner Gerontology
DX: M54.5 Low back pain (principal); E11.8 Type 2 diabetes mellitus with unspecified complications; Z79.4 Long term (current) use of insulin; R11.2 Nausea with vomiting, unspecified
CPT/HCPCS: 36415; 51798; 80053; 81003; 81015; 83605; 85025; 93005; 96361; 96374; 96375; 96376; 99284; C9113; J2270; J2405; J3360

== ENCOUNTER 2019-08-17 07:35 | Emergency (ER) | payer MEDICARE, MEDICAID, SELFPAY ==
[2019-08-17 07:45] VITALS: BP 160/72; PULSE 99; RESP 18; TEMP 36.4; O2SAT 100
--- NOTE | 2019-08-17 07:48 | ED_ITS ---
HPI - General Adult General Chief complaint: Back Pain/Injury Stated complaint: LOWER BACK PAIN Time Seen by Provider: 08/17/19 07:38 Source: patient Mode of arrival: Wheelchair Limitations: no limitations History of Present Illness HPI narrative: Patient is a 54-year-old male. Has known lumbar pathology. Does see pain management. According to last pain management note approximately 1 month ago patient did have a referral placed for physical therapy. Patient states that he has not made this appointment yet. He also had any increasing his gabapentin. He states he has been taking these medications. Denies any fevers. States that a couple days ago he had an increase in his chronic low back pain. Say his right side and right hip. He states that he does ?lose control ?of his right leg does cause him to fall occasionally. No urinary symptoms. No bowel symptoms. No rashes. No fevers. Related Data Home Medications Medication Instructions Recorded Confirmed amlodipine 10 mg PO DAILY #0 06/21/17 07/13/19 atorvastatin [Lipitor] 40 mg PO DAILY #0 06/21/17 03/02/19 gabapentin [Neurontin] 300 mg PO TID #0 06/21/17 07/13/19 insulin glargine [Basaglar KwikPen 100 unit SQ QDAY #0 06/21/17 07/13/19 U-100 Insulin] insulin glulisine U-100 [Apidra 25 unit SQ TID #0 06/21/17 SoloStar U-100 Insulin] lisinopril 40 mg PO QDAY #0 06/21/17 omeprazole 20 mg PO QDAY #0 06/21/17 clonidine HCl 0.1 mg tablet 0.1 mg PO BID 07/13/19 07/13/19 gabapentin 300 mg capsule 300 mg PO TID 07/13/19 07/13/19 pantoprazole 40 mg tablet,delayed 40 mg PO DAILY 07/13/19 07/13/19 release Previous Rx's Medication Instructions Recorded hydrocodone-acetaminophen [Guys] 1 tab PO Q4HP PRN #10 tab 06/21/17 [id number]-[id number]-[id number] 1 - 2 tab PO Q4HP PRN #12 tab 06/24/17 tramadol 50 mg PO BID PRN #10 tab 03/02/19 celecoxib 200 mg capsule 200 mg PO DAILY #30 cap 07/13/19 cyclobenzaprine 10 mg tablet 10 mg PO BID PRN #60 tab 07/13/19 gabapentin 600 mg tablet 600 mg PO TID #90 tab 07/13/19 Allergies Allergy/AdvReac Type Severity Reaction Status Date / Time No Known Drug Allergies Allergy Verified 07/13/19 15:26 Review of Systems Constitutional Constitutional: Denies fever(s) and Denies headache(s) ENT Ears, Nose, Mouth, and Throat: Denies headache(s) Respiratory Respiratory: Denies cough Gastrointestinal Gastrointestinal: Denies abdominal pain, Denies nausea and Denies vomiting Genitourinary Genitourinary: Denies dysuria Musculoskeletal Musculoskeletal: Reports back pain, Reports myalgias and Reports arthralgias (Right hip) Integumentary/Breasts Skin/Breast: Denies lesions and Denies rash Neurologic Neurologic: Denies behavioral changes and Denies headache(s) Psychiatric Psychiatric: Denies behavioral changes Hematologic/Lymphatic Hematologic/Lymphatic: Denies easy bleeding and Denies easy bruising Allergic/Immunologic Allergic/Immunologic: Denies urticaria Patient History Medical History Back pain (Acute) Depression (Acute) Diabetes (Acute) Diabetic peripheral neuropathy associated with type 2 diabetes mellitus (Acute) Facet arthropathy, lumbosacral (Acute) Herniated nucleus pulposus, L4-5 (Acute) Hyperlipidemia (Acute) Hypertension (Acute) Morbid obesity due to excess calories (Acute) Ventral hernia (Acute) Surgical History History of appendectomy (Acute) Social History marital status: lives independently: Yes Smoking Status: Current every day smoker Smokeless tobacco user: other alcohol intake: never substance use type: marijuana Smoking Status: Current every day smoker Substance Use Type: marijuana Exam Initial Vital Signs Initial Vital Signs: Vital Signs Temperature 97.5 F L 08/17/19 07:45 Pulse Rate 99 H 08/17/19 07:45 Respiratory Rate 18 08/17/19 07:45 Blood Pressure 160/72 H 08/17/19 07:45 Pulse Oximetry 100 08/17/19 07:45 Const General: cooperative Limitations: mental status not altered HENMS Head: normal to inspection and normocephalic Resp Effort & Inspection: normal respiratory effort Back/Spine/Pelvis Thoracic/Lumbar Spine: paraspinal tenderness, No thoraco-lumbar spasm and No lumbar spinal tenderness Sacroiliac Joints: tender to palpation right Sacrum: tenderness on the right Skin Lesions: no lesions Rashes: no rashes Neuro General: alert and awake Cognition: normal cognition Speech: speech normal Extrem General: normal to inspection and capillary refill normal Course Orders Ordered: Discontinued Medications Diazepam (Valium) 5 mg PO NOW ONE Stop: 08/17/19 07:49 Last Admin: 08/17/19 07:58 Dose: 5 mg Documented by: DARLYN Hydromorphone HCl (Dilaudid) 1 mg IM NOW ONE Stop: 08/17/19 07:49 Last Admin: 08/17/19 07:59 Dose: 1 mg Documented by: DARLYN Prednisone (Deltasone) 40 mg PO NOW ONE Stop: 08/17/19 07:49 Last Admin: 08/17/19 07:59 Dose: 40 mg Documented by: DARLYN Vital Signs Vital signs: Vital Signs - 8 hr 08/17/19 07:45 Temperature 97.5 F L Pulse Rate 99 H Respiratory Rate 18 Blood Pressure 160/72 H Pulse Oximetry 100 Medical Decision Making Medical Records Medical records reviewed: Yes I reviewed the patient's medical records. [facility] Narrative Medical decision making narrative: Review patient's medical record. His symptoms today is a acute exacerbation of his chronic low back pain. He sees pain management. Has a consult already placed for physical therapy but he is yet to schedule this. Low suspicion for fracture. I feel we can hold on radiologic studies. Low suspicion for cauda equina. Patient was given return precautions and follow-up instructions. Discharge Plan Departure Patient Disposition: Home Clinical Impression: Chronic back pain Qualifiers: Back pain location: low back pain Back pain laterality: right Sciatica presence: with sciatica Sciatica laterality: sciatica of right side Qualified Code(s): M54.41 - Lumbago with sciatica, right side Instructions: DI for Back Pain With Sciatica Activity Restrictions/Additional Instructions: I do recommend that you continue all of her medications as directed. Contact your primary provider for follow-up. 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 I also recommend that you follow through with physical therapy. Return to the emergency department for any new symptoms of Prescriptions: No Action amlodipine 10 MG tablet 10 mg PO DAILY Qty: 0 RF: 0 omeprazole 20 MG capsule,delayed release(DR/EC) 20 mg PO QDAY Qty: 0 RF: 0 lisinopril 40 MG tablet 40 mg PO QDAY Qty: 0 RF: 0 atorvastatin [Lipitor] 40 MG tablet 40 mg PO DAILY Qty: 0 RF: 0 gabapentin [Neurontin] 300 MG capsule 300 mg PO TID Qty: 0 RF: 0 insulin glargine [Basaglar KwikPen U-100 Insulin] 100 UNIT/1 ML insulin pen 100 unit SQ QDAY Qty: 0 RF: 0 insulin glulisine U-100 [Apidra SoloStar U-100 Insulin] 100 UNIT/1 ML insulin pen 25 unit SQ TID Qty: 0 RF: 0 hydrocodone-acetaminophen [Guys] 5 MG/325 MG tablet 1 tab PO Q4HP PRNQty: 10 RF: 0 [id number] 1 EACH tablet 1 - 2 tab PO Q4HP PRNQty: 12 RF: 0 tramadol 50 mg tablet 50 mg PO BID PRN (Reason: pain) Qty: 10 RF: 0 clonidine HCl 0.1 mg tablet 0.1 mg PO BID RF: 0 gabapentin 300 mg capsule 300 mg PO TID RF: 0 pantoprazole 40 mg tablet,delayed release (DR/EC) 40 mg PO DAILY RF: 0 gabapentin 600 mg tablet 600 mg PO TID Qty: 90 RF: 0 cyclobenzaprine 10 mg tablet 10 mg PO BID PRN (Reason: muscle spasm) Qty: 60 RF: 0 celecoxib [Celebrex] 200 mg capsule 200 mg PO DAILY Qty: 30 RF: 0 Referrals: Terrance Blackwell MD [Primary Care Provider] -
[2019-08-17] MEDS: diazePAM 5 MG TABLET PO (07:58)
[2019-08-17] MEDS: predniSONE 20 MG TABLET 40 MG PO (07:59)
[2019-08-17] MEDS: HYDROMORPHONE 1 MG INJ IM (07:59)
[2019-08-17 08:48] VITALS: BP 149/68; PULSE 94; RESP 18; O2SAT 98
== END 2019-08-17 08:48 | disposition home or self-care (01) ==
PROVIDERS: Emergency Provider Emergency Medicine; Family Provider Nurse Practitioner Gerontology; PCP Internal Medicine
DX: M54.41 Lumbago with sciatica, right side (principal)
CPT/HCPCS: 96372; 99283; J1170

== ENCOUNTER 2019-12-14 16:52 | Emergency (ER) | payer MEDICARE, MEDICAID, SELFPAY ==
[2019-12-14 16:50] VITALS: BP 185/86; PULSE 101; RESP 19; TEMP 36.6; O2SAT 99; BMI 35.9
--- NOTE | 2019-12-14 16:59 | DI.RAD.S_ITS ---
PROCEDURE: XR ACUTE ABDOMEN SERIES INDICATIONS: chest, abd pain TECHNIQUE: One view chest and two views of the abdomen were acquired. COMPARISON: None. FINDINGS: Surgical changes and devices: None. Chest: Lungs are clear. Heart size is normal. No pleural effusions. No pneumoperitoneum. Abdomen: Bowel gas pattern is Nonobstructive. Mild fecal stasis in the colon is seen. No gross peritoneal free air. No suspicious calcifications. Visualized solid organ contours appear normal. Bones: No suspicious bony lesions. IMPRESSION: Mild constipation. No bowel obstruction. No gross free air. No acute cardiopulmonary pathology. Dictated by: Ludwig Wong M.D. on 12/14/2019 at 17:52 Approved by: Ludwig Wong M.D. on 12/14/2019 at 17:54
[2019-12-14 17:40] LABS: Add Manual Diff / Slide Review NO; Basophils Absolute Auto 0 /uL (0-100); Basophils Percent Auto 0.5 % (0-2); Eosinophils Absolute Auto 100 /uL (0-450); Eosinophils Percent Auto 0.7 % (2-4); Hematocrit 35.1 % (41-53); Hemoglobin 11.9 g/dL (13.5-17.5); Lymphocytes Absolute Auto 1300 /uL (1100-4500); Lymphocytes Percent Auto 14.5 % (25-40); Mean Corpuscular HGB Conc 33.9 % (30-36); Mean Corpuscular Hemoglobin 27.9 PG (26-34); Mean Corpuscular Volume 82.3 fL (80-100); Monocytes Absolute Auto 500 /uL (0-900); Monocytes Percent Auto 6.2 % (3-14); Neutrophils Absolute Auto 6800 /uL (1500-7000); Neutrophils Percent Auto 78.1 % (50-75); Platelet Count 217 X10^3/uL (150-400); Red Blood Cell Count 4.26 X10^6/uL (4.5-5.9); Red Cell Distribution Width 13.4 % (11.6-14.8); White Blood Cell Count 8.7 X10^3/uL (4.5-11.0)
[2019-12-14 17:45] LABS: Prothrombin Time 11.2 SECONDS (10.1-12.7)
[2019-12-14 17:47] LABS: PTT Partial Thromboplastin Tim 33 SECONDS (26.4-36.2)
[2019-12-14 17:50] LABS: Alanine Aminotransferase 12 IU/L (<50); Albumin 3.7 g/dL (3.5-5.0); Albumin Globulin Ratio 1.4 (1.0-2.8); Alkaline Phosphatase 119 U/L (38-126); Amylase 42 U/L (30-110); Aspartate Aminotransferase 16 IU/L (17-59); Bilirubin Total 0.4 mg/dL (0.2-1.3); Blood Urea Nitrogen 15 mg/dL (9-20); Calcium 9.3 mg/dL (8.4-10.2); Carbon Dioxide 26 mmol/L (22-32); Chloride 102 mmol/L (98-107); Creatine Kinase 77 U/L (55-170); Estimated Glomerular Filt Rate 54.8 mL/min (>60); Globulin 2.7 g/dL (1.7-4.1); Glucose 268 mg/dL (70-100); HEMOLYSIS < 15 (0-50); Lactate (Lactic Acid) 1.2 mmol/L (0.7-2.1); Lipase 30 U/L (23-300); Potassium 4.1 mmol/L (3.4-5.1); Sodium 135 mmol/L (137-145); Total Protein 6.4 g/dL (6.3-8.2)
[2019-12-14] MEDS: MORPHINE 4 MG/ML INJ IV ×2 (17:53→18:47)
[2019-12-14] MEDS: ONDANSETRON 4 MG/2 ML INJ IV (17:54)
[2019-12-14] MEDS: SODIUM CHLORIDE 0.9% 1,000 ML 150 ML IV (17:54)
[2019-12-14 18:02] LABS: NT-proBNP (BNP-Adult 18+) 351 pg/mL (<125); Troponin I 0.013 ng/mL (0.01-0.034)
--- NOTE | 2019-12-14 18:02 | DI.CT.S_ITS ---
PROCEDURE: CT ABDOMEN PELVIS W CON INDICATIONS: abd pain TECHNIQUE: After the administration of intravenous contrast, 5 mm thick sections acquired from the diaphragm to the symphysis. 5 mm coronal and sagittal reformats were acquired. For radiation dose reduction, the following was used: automated exposure control, adjustment of mA and/or kV according to patient size. COMPARISON: [facility], CT, ABDOMEN/PELVIS WITHOUT CONTRAS, 06/21/2017, 14:33. FINDINGS: Image quality: Excellent. ABDOMEN: Lung bases: Lung bases are clear. Heart size is normal. Solid organs: Liver is normal in size and enhancement. Gallbladder Is within normal limits . Biliary system is non dilated. Pancreas enhances normally. Spleen is normal in size and enhancement. No adrenal nodules. Kidneys demonstrate normal size and enhancement, without hydronephrosis. Non-specific mild bilateral perinephric fat stranding is seen. No perinephric fluid collection. Peritoneum and bowel: Bowel loops demonstrate normal wall thickness and caliber. No free fluid or air. Appendix is not visualized. Small hiatal hernia is seen. Nodes and vessels: No retroperitoneal or mesenteric adenopathy by size criteria. Aorta and inferior vena cava are normal in size. Miscellaneous: No ventral hernias. PELVIS: Genitourinary: Bladder wall thickness is normal. Miscellaneous: No inguinal hernias or adenopathy By size criteria. Subcentimeter lymph nodes are noted in bilateral inguinal region measures up to 8 mm in size. Bones: No suspicious bony lesions. No vertebral body compression fractures. IMPRESSION: 1. no bowel obstruction. No abnormal bowel wall thickening. No free fluid or free air. Appendix is not visualized which is unchanged from previous study. 2. no obstructing renal stone or hydronephrosis. No gross abnormality is seen in distended urinary bladder. Nonspecific mild bilateral perinephric fat stranding, infectious process such as pyelonephritis cannot be excluded. No perinephric fluid collection. Dictated by: Ludwig Wong M.D. on 12/14/2019 at 18:36 Approved by: Ludwig Wong M.D. on 12/14/2019 at 18:41
[2019-12-14 18:09] LABS: Procalcitonin 0.12 ng/mL (<0.5)
[2019-12-14] MEDS: LIDOCAINE 2% (UROJET) 5 ML GEL TOP (18:47)
[2019-12-14] MEDS: METOCLOPRAMIDE 10 MG/2 ML INJ IV (18:47)
[2019-12-14 19:19] LABS: Bacteria Urine None Seen; RBC Urine None Seen (0-5/HPF); WBC Urine None Seen (0-5/HPF)
[2019-12-14 19:28] LABS: Culture Indicated Urine Cult Not Indicated; Urine Comments Microscopic Normal
[2019-12-14] MEDS: SIMETHICONE 80 MG TABLET PO (19:47)
[2019-12-14] MEDS: FLEETS ENEMA 1 EACH PR (19:48)
[2019-12-14] MEDS: MAGNESIUM CITRATE 300 ML SOLUTION PO (19:49)
--- NOTE | 2019-12-14 20:32 | ED.ABDPAIN ---
HPI - Abdominal Pain <Jia Varelamer, RECREATIONAL [employer]LE [employer] MANAGER-BC - Last Filed: 12/14/19 21:18> General Chief Complaint: Abdominal Pain Stated Complaint: Abd pain x1 Week Time Seen by Provider: 12/14/19 16:58 Source: patient Mode of arrival: EMS Limitations: no limitations History of Present Illness HPI narrative: The patient is a 54-year-old male current smoker with history of chronic pain and diabetic peripheral neuropathy who presents with a chief complaint of abdominal pain, nausea and vomiting. He states has been going up for the past week, he was seen at an outside facility and given Zofran. He denies any fevers but complains of nausea and vomiting and has taken his outpatient Zofran. He states that the pain radiates to his chest and that started 4 days ago. He denies any abdominal surgeries in the past, but states that he has some hernias. He denies any urinary difficulties, denies dysuria urgency or frequency. Patient states that he called his primary care provider who referred him to the emergency department. The patient states that he takes oxycodone several times a day and sees [facility] pain clinic. He denies any fevers cough or congestion Related Data Home Medications Medication Instructions Recorded Confirmed amlodipine 10 mg PO DAILY #0 06/21/17 07/13/19 atorvastatin [Lipitor] 40 mg PO DAILY #0 06/21/17 03/02/19 gabapentin [Neurontin] 300 mg PO TID #0 06/21/17 07/13/19 insulin glargine [Basaglar KwikPen 100 unit SQ QDAY #0 06/21/17 07/13/19 U-100 Insulin] insulin glulisine U-100 [Apidra 25 unit SQ TID #0 06/21/17 SoloStar U-100 Insulin] lisinopril 40 mg PO QDAY #0 06/21/17 omeprazole 20 mg PO QDAY #0 06/21/17 clonidine HCl 0.1 mg tablet 0.1 mg PO BID 07/13/19 07/13/19 gabapentin 300 mg capsule 300 mg PO TID 07/13/19 07/13/19 pantoprazole 40 mg tablet,delayed 40 mg PO DAILY 07/13/19 07/13/19 release Previous Rx's Medication Instructions Recorded hydrocodone-acetaminophen [[place]] 1 tab PO Q4HP PRN #10 tab 01/21/18 opfnscfoct-wtsfwkuuqsvwj-skel 1 - 2 tab PO Q4HP PRN #12 tab 06/24/17 tramadol 50 mg PO BID PRN #10 tab 03/02/19 celecoxib 200 mg capsule 200 mg PO DAILY #30 cap 07/13/19 cyclobenzaprine 10 mg tablet 10 mg PO BID PRN #60 tab 07/13/19 gabapentin 600 mg tablet 600 mg PO TID #90 tab 07/13/19 Allergies Allergy/AdvReac Type Severity Reaction Status Date / Time No Known Drug Allergies Allergy Verified 12/14/19 16:58 Review of Systems <CAMERON Donahue - Last Filed: 12/14/19 21:18> Review of Systems Narrative: GENERAL: Denies chills, fatigue, malaise, fever, sweats. HEENT: Denies sinus pain, ear pain, sore throat, difficulty swallowing, dizziness. RESPIRATORY: Denies dyspnea, cough, wheezing, hemoptysis, sputum. CARDIOVASCULAR: Denies chest pain, palpitations, orthopnea, edema, GASTROINTESTINAL: See HPI : Denies dysuria, frequency, incontinence, hematuria, urinary retention. MUSCULOSKELETAL: denies weakness, joint pain, or bony pain SKIN: Denies rash, skin lesions, or other NEUROLOGIC: Denies weakness, headache, numbness, change in speech, confusion, seizures, incoordination. PSYCHIATRIC: No concerning psychosocial issues. 12 point review of systems is negative except for those stated above Patient History <CAMERON Donahue - Last Filed: 12/14/19 21:18> Medical History Back pain (Acute) Depression (Acute) Diabetes (Acute) Diabetic peripheral neuropathy associated with type 2 diabetes mellitus (Acute) Facet arthropathy, lumbosacral (Acute) Herniated nucleus pulposus, L4-5 (Acute) Hyperlipidemia (Acute) Hypertension (Acute) Morbid obesity due to excess calories (Acute) Ventral hernia (Acute) Surgical History History of appendectomy (Acute) Social History marital status: lives independently: Yes Smoking Status: Current every day smoker Smokeless tobacco user: other alcohol intake: never substance use type: marijuana Smoking Status: Current every day smoker Substance Use Type: marijuana Exam <CAMERON Donahue - Last Filed: 12/14/19 21:18> Narrative Exam Narrative: GENERAL: Male lying on stretcher, groaning HEAD: Atraumatic. Normocephalic. No temporal or scalp tenderness. EYES: Pupils equal round and reactive. Extraocular motions intact. No scleral icterus. No injection or drainage. ENT: Nose without bleeding, purulent drainage or septal hematoma. Throat without erythema, tonsillar hypertrophy or exudate. Uvula midline. Airway patent. NECK: Trachea midline. No JVD or lymphadenopathy. Supple, nontender, no meningeal signs. CARDIOVASCULAR: Regular rate and rhythm RESPIRATORY: Clear to auscultation. Breath sounds equal bilaterally. No wheezes, rales, or rhonchi. No cough. No increased respiratory effort. No accessory muscle use. GASTROINTESTINAL: Abdomen soft, diffusely tender to palpation, nondistended. No hepato-splenomegaly, or palpable masses. No guarding. Active bowel sounds all 4 quadrants EXTREMITIES: No clubbing, cyanosis, or edema. No joint tenderness, effusion, or edema noted. BACK: Nontender without deformity or crepitance. No flank tenderness. NEURO: AOx3. SKIN: No rash or erythema on visible skin Initial Vital Signs Initial Vital Signs: Vital Signs Temperature 97.8 F 12/14/19 16:50 Pulse Rate 101 H 12/14/19 16:50 Respiratory Rate 12/14/19 16:50 Blood Pressure 185/86 H 12/14/19 16:50 Pulse Oximetry 99 12/14/19 16:50 <Papito Sorensen DO - Last Filed: 12/14/19 23:19> Initial Vital Signs Initial Vital Signs: Vital Signs Temperature 97.8 F 12/14/19 16:50 Pulse Rate 101 H 12/14/19 16:50 Respiratory Rate 12/14/19 16:50 Blood Pressure 185/86 H 12/14/19 16:50 Pulse Oximetry 99 12/14/19 16:50 Scores <CAMERON Donahue - Last Filed: 12/14/19 21:18> GCS Brianna coma scale eye opening: Spontaneous Brianna coma scale verbal response: Orientated Brianna coma scale motor response: Obey commands [place] coma scale total score: 15 Course <Jiavangie VarelaCHRIS mejiaP-BC - Last Filed: 12/14/19 21:18> Orders Ordered: ED Orders 12/14/19 16:58 EKG-12 Lead Stat 12/14/19 16:59 XR acute abdomen series Stat 12/14/19 17:30 Amylase Stat Complete Blood Count AUTO DIFF Stat Comprehensive Metabolic Panel Stat Lactate (Lactic Acid) Stat Lipase Stat NT-proBNP (BNP-Adult 18+) Stat Partial Thromboplastin Time Stat Procalcitonin Stat Prothrombin Time INR Stat Troponin & CK Cardiac Panel Stat 12/14/19 18:02 CT abdomen pelvis w con Stat 12/14/19 19:06 Urine Microscopic Stat 12/14/19 20:17 Troponin & CK Cardiac Panel Stat Discontinued Medications Sodium Chloride (Normal Saline 0.9%) 1,000 mls @ 150 mls/hr IV CONT SUSAN Last Infusion: 12/14/19 21:05 Dose: 0 mls/hr Documented by: Admin: 12/14/19 17:54 Dose: 150 mls/hr Documented by: ADILIA Ketorolac Tromethamine (Toradol) 15 mg IM NOW ONE Stop: 12/14/19 21:08 Last Admin: 12/14/19 21:12 Dose: 15 mg Documented by: JOSE Lidocaine HCl (Urojet) 5 ml TOP NOW ONE Stop: 12/14/19 18:39 Last Admin: 12/14/19 18:47 Dose: 5 ml Documented by: ADILIA Magnesium Citrate (Magnesium Citrate) 300 ml PO NOW ONE Stop: 12/14/19 19:44 Last Admin: 12/14/19 19:49 Dose: 300 ml Documented by: JOSE Metoclopramide HCl (Reglan) 10 mg IV NOW ONE Stop: 12/14/19 18:32 Last Admin: 12/14/19 18:47 Dose: 10 mg Documented by: ADILIA Morphine Sulfate (Morphine) 4 mg IV NOW ONE Stop: 12/14/19 16:59 Last Admin: 12/14/19 17:53 Dose: 4 mg Documented by: ADILIA Morphine Sulfate (Morphine) 4 mg IV NOW ONE Stop: 12/14/19 18:32 Last Admin: 12/14/19 18:47 Dose: 4 mg Documented by: ADILIA Ondansetron HCl (Zofran) 4 mg IV NOW ONE Stop: 12/14/19 16:59 Last Admin: 12/14/19 17:54 Dose: 4 mg Documented by: ADILIA Simethicone (Mylicon) 80 mg PO NOW ONE Stop: 12/14/19 19:40 Last Admin: 12/14/19 19:47 Dose: 80 mg Documented by: JOSE Sodium Biphosphate/Sodium Phosphate (Fleet Enema) 1 each [place] NOW ONE Stop: 12/14/19 19:44 Last Admin: 12/14/19 19:48 Dose: 1 each Documented by: JOSE Vital Signs Vital signs: Vital Signs - 8 hr 12/14/19 16:50 12/14/19 21:24 Temperature 97.8 F Pulse Rate 101 H 97 H Respiratory Rate 19 20 Blood Pressure 185/86 H 134/74 Pulse Oximetry 99 99 <Papito Sorensen DO - Last Filed: 12/14/19 23:19> Orders Ordered: ED Orders 12/14/19 16:58 EKG-12 Lead Stat 12/14/19 16:59 XR acute abdomen series Stat 12/14/19 17:30 Amylase Stat Complete Blood Count AUTO DIFF Stat Comprehensive Metabolic Panel Stat Lactate (Lactic Acid) Stat Lipase Stat NT-proBNP (BNP-Adult 18+) Stat Partial Thromboplastin Time Stat Procalcitonin Stat Prothrombin Time INR Stat Troponin & CK Cardiac Panel Stat 12/14/19 18:02 CT abdomen pelvis w con Stat 12/14/19 19:06 Urine Microscopic Stat 12/14/19 20:17 Troponin & CK Cardiac Panel Stat Discontinued Medications Sodium Chloride (Normal Saline 0.9%) 1,000 mls @ 150 mls/hr IV CONT SUSAN Last Infusion: 12/14/19 21:05 Dose: 0 mls/hr Documented by: Admin: 12/14/19 17:54 Dose: 150 mls/hr Documented by: ADILIA Ketorolac Tromethamine (Toradol) 15 mg IM NOW ONE Stop: 12/14/19 21:08 Last Admin: 12/14/19 21:12 Dose: 15 mg Documented by: JOSE Lidocaine HCl (Urojet) 5 ml TOP NOW ONE Stop: 12/14/19 18:39 Last Admin: 12/14/19 18:47 Dose: 5 ml Documented by: ADILIA Magnesium Citrate (Magnesium Citrate) 300 ml PO NOW ONE Stop: 12/14/19 19:44 Last Admin: 12/14/19 19:49 Dose: 300 ml Documented by: JOSE Metoclopramide HCl (Reglan) 10 mg IV NOW ONE Stop: 12/14/19 18:32 Last Admin: 12/14/19 18:47 Dose: 10 mg Documented by: ADILIA Morphine Sulfate (Morphine) 4 mg IV NOW ONE Stop: 12/14/19 16:59 Last Admin: 12/14/19 17:53 Dose: 4 mg Documented by: ADILIA Morphine Sulfate (Morphine) 4 mg IV NOW ONE Stop: 12/14/19 18:32 Last Admin: 12/14/19 18:47 Dose: 4 mg Documented by: ADILIA Ondansetron HCl (Zofran) 4 mg IV NOW ONE Stop: 12/14/19 16:59 Last Admin: 12/14/19 17:54 Dose: 4 mg Documented by: ADILIA Simethicone (Mylicon) 80 mg PO NOW ONE Stop: 12/14/19 19:40 Last Admin: 12/14/19 19:47 Dose: 80 mg Documented by: JOSE Sodium Biphosphate/Sodium Phosphate (Fleet Enema) 1 each [place] NOW ONE Stop: 12/14/19 19:44 Last Admin: 12/14/19 19:48 Dose: 1 each Documented by: JOSE Vital Signs Vital signs: Vital Signs - 8 hr 12/14/19 16:50 12/14/19 21:24 Temperature 97.8 F Pulse Rate 101 H 97 H Respiratory Rate 19 20 Blood Pressure 185/86 H 134/74 Pulse Oximetry 99 99 MDM - Abdominal Pain <CAMERON Donahue - Last Filed: 12/14/19 21:18> Lab Data Result diagrams: 12/14/19 17:30 12/14/19 17:30 Labs: Lab Results 12/14/19 12/14/19 12/14/19 Range/Units 17:30 17:30 17:30 WBC 8.7 (4.5-11.0) X10^3/uL RBC 4.26 L (4.5-5.9) X10^6/uL Hgb 11.9 L (13.5-17.5) g/dL Hct 35.1 L (41-53) % MCV 82.3 (80-100) fL MCH 27.9 (26-34) PG MCHC 33.9 (30-36) % RDW 13.4 (11.6-14.8) % Plt Count 217 (150-400) X10^3/uL Neut % (Auto) 78.1 H (50-75) % Lymph % (Auto) 14.5 L (25-40) % Angelina % (Auto) 6.2 (3-14) % Eos % (Auto) 0.7 L (2-4) % Baso % (Auto) 0.5 (0-2) % Neut # (Auto) 6800 (4770-9181) /uL Lymph # (Auto) 1300 (5937-6103) /uL Angelina # (Auto) 500 (0-900) /uL Eos # (Auto) 100 (0-450) /uL Baso # (Auto) 0 (0-100) /uL PT 11.2 (10.1-12.7) SECONDS INR 1.0 (0.9-1.3) APTT 33 D (26.4-36.2) SECONDS Sodium 135 L (137-145) mmol/L Potassium 4.1 (3.4-5.1) mmol/L Chloride 102 (98-107) mmol/L Carbon Dioxide 26 (22-32) mmol/L BUN 15 (9-20) mg/dL Creatinine 1.36 H (0.66-1.25) mg/dL Estimated GFR 54.8 L (>60) mL/min BUN/Creatinine Ratio 11.0 (6-22) Glucose 268 H (70-100) mg/dL Lactate (0.7-2.1) mmol/L Calcium 9.3 (8.4-10.2) mg/dL Total Bilirubin 0.4 (0.2-1.3) mg/dL AST 16 L (17-59) IU/L ALT 12 (<50) IU/L Alkaline Phosphatase 119 (38-126) U/L Total Creatine Kinase 77 (55-170) U/L CK-MB (CK-2) TNP CK-MB (CK-2) Rel Index TNP Troponin I 0.013 (0.01-0.034) ng/mL NT-Pro-B Natriuret Pep 351 H (<125) pg/mL Total Protein 6.4 (6.3-8.2) g/dL Albumin 3.7 (3.5-5.0) g/dL Globulin 2.7 (1.7-4.1) g/dL Albumin/Globulin Ratio 1.4 (1.0-2.8) Amylase 42 (30-110) U/L Lipase 30 (23-300) U/L Procalcitonin (<0.5) ng/mL Urine RBC (0-5/HPF) Urine WBC (0-5/HPF) Urine Bacteria (None) Ur Culture Indicated? Micro UA Comment 12/14/19 12/14/19 12/14/19 Range/Units 17:30 17:30 19:06 WBC (4.5-11.0) X10^3/uL RBC (4.5-5.9) X10^6/uL Hgb (13.5-17.5) g/dL Hct (41-53) % MCV (80-100) fL MCH (26-34) PG MCHC (30-36) % RDW (11.6-14.8) % Plt Count (150-400) X10^3/uL Neut % (Auto) (50-75) % Lymph % (Auto) (25-40) % Angelina % (Auto) (3-14) % Eos % (Auto) (2-4) % Baso % (Auto) (0-2) % Neut # (Auto) (5909-0286) /uL Lymph # (Auto) (1563-3679) /uL Angelina # (Auto) (0-900) /uL Eos # (Auto) (0-450) /uL Baso # (Auto) (0-100) /uL PT (10.1-12.7) SECONDS INR (0.9-1.3) APTT (26.4-36.2) SECONDS Sodium (137-145) mmol/L Potassium (3.4-5.1) mmol/L Chloride (98-107) mmol/L Carbon Dioxide (22-32) mmol/L BUN (9-20) mg/dL Creatinine (0.66-1.25) mg/dL Estimated GFR (>60) mL/min BUN/Creatinine Ratio (6-22) Glucose (70-100) mg/dL Lactate 1.2 (0.7-2.1) mmol/L Calcium (8.4-10.2) mg/dL Total Bilirubin (0.2-1.3) mg/dL AST (17-59) IU/L ALT (<50) IU/L Alkaline Phosphatase (38-126) U/L Total Creatine Kinase (55-170) U/L CK-MB (CK-2) CK-MB (CK-2) Rel Index Troponin I (0.01-0.034) ng/mL NT-Pro-B Natriuret Pep (<125) pg/mL Total Protein (6.3-8.2) g/dL Albumin (3.5-5.0) g/dL Globulin (1.7-4.1) g/dL Albumin/Globulin Ratio (1.0-2.8) Amylase (30-110) U/L Lipase (23-300) U/L Procalcitonin 0.12 (<0.5) ng/mL Urine RBC None seen (0-5/HPF) Urine WBC None seen (0-5/HPF) Urine Bacteria None seen (None) Ur Culture Indicated? Cult not indicated Micro UA Comment Microscopic normal 12/14/19 Range/Units 20:17 WBC (4.5-11.0) X10^3/uL RBC (4.5-5.9) X10^6/uL Hgb (13.5-17.5) g/dL Hct (41-53) % MCV (80-100) fL MCH (26-34) PG MCHC (30-36) % RDW (11.6-14.8) % Plt Count (150-400) X10^3/uL Neut % (Auto) (50-75) % Lymph % (Auto) (25-40) % Angelina % (Auto) (3-14) % Eos % (Auto) (2-4) % Baso % (Auto) (0-2) % Neut # (Auto) (6762-8415) /uL Lymph # (Auto) (1563-0608) /uL Angelina # (Auto) (0-900) /uL Eos # (Auto) (0-450) /uL Baso # (Auto) (0-100) /uL PT (10.1-12.7) SECONDS INR (0.9-1.3) APTT (26.4-36.2) SECONDS Sodium (137-145) mmol/L Potassium (3.4-5.1) mmol/L Chloride (98-107) mmol/L Carbon Dioxide (22-32) mmol/L BUN (9-20) mg/dL Creatinine (0.66-1.25) mg/dL Estimated GFR (>60) mL/min BUN/Creatinine Ratio (6-22) Glucose (70-100) mg/dL Lactate (0.7-2.1) mmol/L Calcium (8.4-10.2) mg/dL Total Bilirubin (0.2-1.3) mg/dL AST (17-59) IU/L ALT (<50) IU/L Alkaline Phosphatase (38-126) U/L Total Creatine Kinase 91 (55-170) U/L CK-MB (CK-2) TNP CK-MB (CK-2) Rel Index TNP Troponin I 0.019 (0.01-0.034) ng/mL NT-Pro-B Natriuret Pep (<125) pg/mL Total Protein (6.3-8.2) g/dL Albumin (3.5-5.0) g/dL Globulin (1.7-4.1) g/dL Albumin/Globulin Ratio (1.0-2.8) Amylase (30-110) U/L Lipase (23-300) U/L Procalcitonin (<0.5) ng/mL Urine RBC (0-5/HPF) Urine WBC (0-5/HPF) Urine Bacteria (None) Ur Culture Indicated? Micro UA Comment Point of care testing: Urine Dip Bedside Urine Glucose 500 mg/dl Bedside Urine Bilirubin - Negative Bedside Urine Ketone + 15 Urine Specific [place] 1.015 Bedside Urine Occult Blood ++ Bedside Urine pH 6.0 Bedside Urine Protein - Negative Bedside Urine Urobilinogen - Negative Bedside Urine Nitrite - Negative Bedside Urine Leukocytes - Negative Esterase Imaging Data CT scan - abdomen/pelvis: Radiologist's Impression: [address] [place] [id number] Scan Report Signed Patient: Drew Hartmann PMR#: [id number] : 1965Acct:[id number] Age/Sex: 54 / MDate of Service: 12/14/19 Loc: ED Accession Number: [id number] Procedure: CT abdomen pelvis w con Ordering Provider: Jia StaffordBC PROCEDURE: CT ABDOMEN PELVIS W CON INDICATIONS: abd pain TECHNIQUE: After the administration of intravenous contrast, 5 mm thick sections acquired from the diaphragm to the symphysis. 5 mm coronal and sagittal reformats were acquired. For radiation dose reduction, the following was used: automated exposure control, adjustment of mA and/or kV according to patient size. COMPARISON: [facility], CT, ABDOMEN/PELVIS WITHOUT CONTRAS, 06/21/2017, 14:33. FINDINGS: Image quality: Excellent. ABDOMEN: Lung bases: Lung bases are clear. Heart size is normal. Solid organs: Liver is normal in size and enhancement. Gallbladder Is within normal limits . Biliary system is non dilated. Pancreas enhances normally. Spleen is normal in size and enhancement. No adrenal nodules. Kidneys demonstrate normal size and enhancement, without hydronephrosis. Non-specific mild bilateral perinephric fat stranding is seen. No perinephric fluid collection. Peritoneum and bowel: Bowel loops demonstrate normal wall thickness and caliber. No free fluid or air. Appendix is not visualized. Small hiatal hernia is seen. Nodes and vessels: No retroperitoneal or mesenteric adenopathy by size criteria. Aorta and inferior vena cava are normal in size. Miscellaneous: No ventral hernias. PELVIS: Genitourinary: Bladder wall thickness is normal. Miscellaneous: No inguinal hernias or adenopathy By size criteria. Subcentimeter lymph nodes are noted in bilateral inguinal region measures up to 8 mm in size. Bones: No suspicious bony lesions. No vertebral body compression fractures. IMPRESSION: 1. no bowel obstruction. No abnormal bowel wall thickening. No free fluid or free air. Appendix is not visualized which is unchanged from previous study. 2. no obstructing renal stone or hydronephrosis. No gross abnormality is seen in distended urinary bladder. Nonspecific mild bilateral perinephric fat stranding, infectious process such as pyelonephritis cannot be excluded. No perinephric fluid collection. Dictated by: Ludwig Wong M.D. on 12/14/2019 at 18:36 Approved by: Ludwig Wong M.D. on 12/14/2019 at 18:41 Abdominal x-ray: Radiologist's Impression: [address] [place] [id number] XRay Report Signed Patient: Drew Hartmann PMR#: [id number] : 1965Acct:[id number] Age/Sex: 54 / MDate of Service: 12/14/19 Loc: ED Accession Number: [id number] Procedure: XR acute abdomen series Ordering Provider: Jia Stafford- PROCEDURE: XR ACUTE ABDOMEN SERIES INDICATIONS: chest, abd pain TECHNIQUE: One view chest and two views of the abdomen were acquired. COMPARISON: None. FINDINGS: Surgical changes and devices: None. Chest: Lungs are clear. Heart size is normal. No pleural effusions. No pneumoperitoneum. Abdomen: Bowel gas pattern is Nonobstructive. Mild fecal stasis in the colon is seen. No gross peritoneal free air. No suspicious calcifications. Visualized solid organ contours appear normal. Bones: No suspicious bony lesions. IMPRESSION: Mild constipation. No bowel obstruction. No gross free air. No acute cardiopulmonary pathology. Dictated by: Ludwig Wong M.D. on 12/14/2019 at 17:52 Approved by: Ludwig Wong M.D. on 12/14/2019 at 17:54 ECG Data Attestation: I personally reviewed and interpreted this ECG as follows: Interpretation: Ventricular rate 93. P.r. interval 154. QRS 118. Normal sinus rhythm. Viewed by Dr Hasmukh WILSON Narrative Medical decision making narrative: The patient is a 54-year-old male who presents with a chief complaint of abdominal pain for the past week. He also complains of nausea and vomiting. He was seen at an outside facility last week. He has not had a bowel movement in the past 5 days. Overall his lab work appears well, no leukocytosis, procalcitonin less than 0.5, normal lactate. His initial troponin is negative as well as his repeat troponin. However he was found to have bladder distension a Mcgee catheter was inserted, and almost 2 L drained from his bladder. His x-ray indicates constipation, fecal stasis which correlates with his history of not having a bowel movement for the past 5 days. He has no signs of obstruction on his CT scan in no acute findings other than the distended urinary bladder. The patient felt improved after the Mcgee catheter was inserted. He was given magnesium citrate and requested to be discharged so he could go have a bowel movement at home. I discussed at length coming back to the emergency department for any acute concerns such as abdominal pain with fever etcetera. I did encourage follow-up with primary care provider tomorrow. Patient was given parenteral taking care Mcgee catheter. Patient stated that he still had pain after catheter was inserted with doses chronic back and leg pain at that point time. Patient has no questions or concerns upon discharge and states understanding of return precautions as well as follow-up care. <Papito Sorensen, DO - Last Filed: 12/14/19 23:19> Lab Data Labs: Lab Results 12/14/19 12/14/19 12/14/19 Range/Units 17:30 17:30 17:30 WBC 8.7 (4.5-11.0) X10^3/uL RBC 4.26 L (4.5-5.9) X10^6/uL Hgb 11.9 L (13.5-17.5) g/dL Hct 35.1 L (41-53) % MCV 82.3 (80-100) fL MCH 27.9 (26-34) PG MCHC 33.9 (30-36) % RDW 13.4 (11.6-14.8) % Plt Count 217 (150-400) X10^3/uL Neut % (Auto) 78.1 H (50-75) % Lymph % (Auto) 14.5 L (25-40) % Angelina % (Auto) 6.2 (3-14) % Eos % (Auto) 0.7 L (2-4) % Baso % (Auto) 0.5 (0-2) % Neut # (Auto) 6800 (4761-1086) /uL Lymph # (Auto) 1300 (0921-7637) /uL Angelina # (Auto) 500 (0-900) /uL Eos # (Auto) 100 (0-450) /uL Baso # (Auto) 0 (0-100) /uL PT 11.2 (10.1-12.7) SECONDS INR 1.0 (0.9-1.3) APTT 33 D (26.4-36.2) SECONDS Sodium 135 L (137-145) mmol/L Potassium 4.1 (3.4-5.1) mmol/L Chloride 102 (98-107) mmol/L Carbon Dioxide 26 (22-32) mmol/L BUN 15 (9-20) mg/dL Creatinine 1.36 H (0.66-1.25) mg/dL Estimated GFR 54.8 L (>60) mL/min BUN/Creatinine Ratio 11.0 (6-22) Glucose 268 H (70-100) mg/dL Lactate (0.7-2.1) mmol/L Calcium 9.3 (8.4-10.2) mg/dL Total Bilirubin 0.4 (0.2-1.3) mg/dL AST 16 L (17-59) IU/L ALT 12 (<50) IU/L Alkaline Phosphatase 119 (38-126) U/L Total Creatine Kinase 77 (55-170) U/L CK-MB (CK-2) TNP CK-MB (CK-2) Rel Index TNP Troponin I 0.013 (0.01-0.034) ng/mL NT-Pro-B Natriuret Pep 351 H (<125) pg/mL Total Protein 6.4 (6.3-8.2) g/dL Albumin 3.7 (3.5-5.0) g/dL Globulin 2.7 (1.7-4.1) g/dL Albumin/Globulin Ratio 1.4 (1.0-2.8) Amylase 42 (30-110) U/L Lipase 30 (23-300) U/L Procalcitonin (<0.5) ng/mL Urine RBC (0-5/HPF) Urine WBC (0-5/HPF) Urine Bacteria (None) Ur Culture Indicated? Micro UA Comment 12/14/19 12/14/19 12/14/19 Range/Units 17:30 17:30 19:06 WBC (4.5-11.0) X10^3/uL RBC (4.5-5.9) X10^6/uL Hgb (13.5-17.5) g/dL Hct (41-53) % MCV (80-100) fL MCH (26-34) PG MCHC (30-36) % RDW (11.6-14.8) % Plt Count (150-400) X10^3/uL Neut % (Auto) (50-75) % Lymph % (Auto) (25-40) % Angelina % (Auto) (3-14) % Eos % (Auto) (2-4) % Baso % (Auto) (0-2) % Neut # (Auto) (7364-3855) /uL Lymph # (Auto) (8977-1831) /uL Angelina # (Auto) (0-900) /uL Eos # (Auto) (0-450) /uL Baso # (Auto) (0-100) /uL PT (10.1-12.7) SECONDS INR (0.9-1.3) APTT (26.4-36.2) SECONDS Sodium (137-145) mmol/L Potassium (3.4-5.1) mmol/L Chloride (98-107) mmol/L Carbon Dioxide (22-32) mmol/L BUN (9-20) mg/dL Creatinine (0.66-1.25) mg/dL Estimated GFR (>60) mL/min BUN/Creatinine Ratio (6-22) Glucose (70-100) mg/dL Lactate 1.2 (0.7-2.1) mmol/L Calcium (8.4-10.2) mg/dL Total Bilirubin (0.2-1.3) mg/dL AST (17-59) IU/L ALT (<50) IU/L Alkaline Phosphatase (38-126) U/L Total Creatine Kinase (55-170) U/L CK-MB (CK-2) CK-MB (CK-2) Rel Index Troponin I (0.01-0.034) ng/mL NT-Pro-B Natriuret Pep (<125) pg/mL Total Protein (6.3-8.2) g/dL Albumin (3.5-5.0) g/dL Globulin (1.7-4.1) g/dL Albumin/Globulin Ratio (1.0-2.8) Amylase (30-110) U/L Lipase (23-300) U/L Procalcitonin 0.12 (<0.5) ng/mL Urine RBC None seen (0-5/HPF) Urine WBC None seen (0-5/HPF) Urine Bacteria None seen (None) Ur Culture Indicated? Cult not indicated Micro UA Comment Microscopic normal 12/14/19 Range/Units 20:17 WBC (4.5-11.0) X10^3/uL RBC (4.5-5.9) X10^6/uL Hgb (13.5-17.5) g/dL Hct (41-53) % MCV (80-100) fL MCH (26-34) PG MCHC (30-36) % RDW (11.6-14.8) % Plt Count (150-400) X10^3/uL Neut % (Auto) (50-75) % Lymph % (Auto) (25-40) % Angelina % (Auto) (3-14) % Eos % (Auto) (2-4) % Baso % (Auto) (0-2) % Neut # (Auto) (4140-1419) /uL Lymph # (Auto) (8096-2683) /uL Angelina # (Auto) (0-900) /uL Eos # (Auto) (0-450) /uL Baso # (Auto) (0-100) /uL PT (10.1-12.7) SECONDS INR (0.9-1.3) APTT (26.4-36.2) SECONDS Sodium (137-145) mmol/L Potassium (3.4-5.1) mmol/L Chloride (98-107) mmol/L Carbon Dioxide (22-32) mmol/L BUN (9-20) mg/dL Creatinine (0.66-1.25) mg/dL Estimated GFR (>60) mL/min BUN/Creatinine Ratio (6-22) Glucose (70-100) mg/dL Lactate (0.7-2.1) mmol/L Calcium (8.4-10.2) mg/dL Total Bilirubin (0.2-1.3) mg/dL AST (17-59) IU/L ALT (<50) IU/L Alkaline Phosphatase (38-126) U/L Total Creatine Kinase 91 (55-170) U/L CK-MB (CK-2) TNP CK-MB (CK-2) Rel Index TNP Troponin I 0.019 (0.01-0.034) ng/mL NT-Pro-B Natriuret Pep (<125) pg/mL Total Protein (6.3-8.2) g/dL Albumin (3.5-5.0) g/dL Globulin (1.7-4.1) g/dL Albumin/Globulin Ratio (1.0-2.8) Amylase (30-110) U/L Lipase (23-300) U/L Procalcitonin (<0.5) ng/mL Urine RBC (0-5/HPF) Urine WBC (0-5/HPF) Urine Bacteria (None) Ur Culture Indicated? Micro UA Comment Point of care testing: Urine Dip Bedside Urine Glucose 500 mg/dl Bedside Urine Bilirubin - Negative Bedside Urine Ketone + 15 Urine Specific [place] 1.015 Bedside Urine Occult Blood ++ Bedside Urine pH 6.0 Bedside Urine Protein - Negative Bedside Urine Urobilinogen - Negative Bedside Urine Nitrite - Negative Bedside Urine Leukocytes - Negative Esterase Discharge Plan Departure Patient Disposition: Home Clinical Impression: Acute urinary retention Constipation Qualifiers: Constipation type: unspecified constipation type Qualified Code(s): K59.00 - Constipation, unspecified Abdominal pain Qualifiers: Abdominal location: generalized Qualified Code(s): R10.84 - Generalized abdominal pain Discharge Date/Time: 12/14/19 21:25 Instructions: How to Care for Your Mcgee Catheter -- Male, Constipation (Alternative Therapy), DI for Abdominal Pain-Adult, DI for Constipation, DI for Urinary Retention in Men Activity Restrictions/Additional Instructions: Thank you for trusting us with your care today. Today we found that you are having severe urinary retention. We have placed a Mcgee catheter. This will help drain your bladder. I have included an attachment regarding how to take care of this. Today we did lab work as well as an abdominal CT. The CT shows severe constipation. We have given you magnesium citrate to help move your bowels along. I also suggest docusate which is a stool softener, senna which is a laxative that you can use in cases of severe constipation. This is available in a tea called smooth move. He can also use magnesium citrate, milk of magnesia, Fleet enemas. And old nursing trick is to use warm applesauce mixed with warm prune juice and a tab of better on top. Please follow-up with primary care provider tomorrow. Please come back to the emergency department for any acute concerns. Please do not try to remove Mcgee catheter yourself. This can cause significant injury. Prescriptions: No Action amlodipine 10 MG tablet 10 mg PO DAILY Qty: 0 RF: 0 omeprazole 20 MG capsule,delayed release(DR/EC) 20 mg PO QDAY Qty: 0 RF: 0 lisinopril 40 MG tablet 40 mg PO QDAY Qty: 0 RF: 0 atorvastatin [Lipitor] 40 MG tablet 40 mg PO DAILY Qty: 0 RF: 0 gabapentin [Neurontin] 300 MG capsule 300 mg PO TID Qty: 0 RF: 0 insulin glargine [Basaglar KwikPen U-100 Insulin] 100 UNIT/1 ML insulin pen 100 unit SQ QDAY Qty: 0 RF: 0 insulin glulisine U-100 [Apidra SoloStar U-100 Insulin] 100 UNIT/1 ML insulin pen 25 unit SQ TID Qty: 0 RF: 0 hydrocodone-acetaminophen [[place]] 5 MG/325 MG tablet 1 tab PO Q4HP PRNQty: 10 RF: 0 [id number]-[id number] 1 EACH tablet 1 - 2 tab PO Q4HP PRNQty: 12 RF: 0 tramadol 50 mg tablet 50 mg PO BID PRN (Reason: pain) Qty: 10 RF: 0 clonidine HCl 0.1 mg tablet 0.1 mg PO BID RF: 0 gabapentin 300 mg capsule 300 mg PO TID RF: 0 pantoprazole 40 mg tablet,delayed release (DR/EC) 40 mg PO DAILY RF: 0 gabapentin 600 mg tablet 600 mg PO TID Qty: 90 RF: 0 cyclobenzaprine 10 mg tablet 10 mg PO BID PRN (Reason: muscle spasm) Qty: 60 RF: 0 celecoxib [Celebrex] 200 mg capsule 200 mg PO DAILY Qty: 30 RF: 0 Referrals: Terrance Blackwell MD [Primary Care Provider] - <Papito Sorensen DO - Last Filed: 12/14/19 23:19> Cosign ED Attending Cosignature Attestation: I was immediately available in the department for consultation. This documentation has been reviewed and I agree with assessment and plan. Supervised by Papito Sorensen DO
[2019-12-14 20:33] LABS: Creatine Kinase 91 U/L (55-170)
[2019-12-14 20:45] LABS: Troponin I 0.019 ng/mL (0.01-0.034)
[2019-12-14] MEDS: KETOROLAC 60 MG/2 ML VIAL 15 MG IM (21:12)
[2019-12-14 21:24] VITALS: BP 134/74; PULSE 97; RESP 20; O2SAT 99
== END 2019-12-14 21:25 | disposition home or self-care (01) ==
PROVIDERS: Emergency Provider Nurse Practitioner Family; Family Provider Nurse Practitioner Gerontology; PCP Internal Medicine
DX: R33.9 Retention of urine, unspecified (principal); K59.00 Constipation, unspecified; R10.84 Generalized abdominal pain; N32.89 Other specified disorders of bladder; R11.2 Nausea with vomiting, unspecified
CPT/HCPCS: 36415; 51701; 51798; 74022; 74177; 80053; 81003; 81015; 82150; 82550; 83605; 83690; 83880; 84145; 84484; 85025; 85610; 85730; 93005; 93010; 96361; 96372; 96374; 96375; 96376; 99285; J1885; J2270; J2405; J2765

== ENCOUNTER 2019-12-16 11:18 | Emergency (ER) | payer MEDICARE, MEDICAID, SELFPAY ==
[2019-12-16] VITALS (11 sets, daily range): BP systolic 173–183; BP diastolic 70–88; PULSE 93–103; RESP 22; TEMP 37.2; O2SAT 97–99; BMI 35.9
[2019-12-16 12:08] LABS: Add Manual Diff / Slide Review NO; Basophils Absolute Auto 100 /uL (0-100); Basophils Percent Auto 0.5 % (0-2); Eosinophils Absolute Auto 0 /uL (0-450); Eosinophils Percent Auto 0.1 % (2-4); Hematocrit 37.6 % (41-53); Lymphocytes Absolute Auto 900 /uL (1100-4500); Lymphocytes Percent Auto 8.6 % (25-40); Mean Corpuscular HGB Conc 34.5 % (30-36); Mean Corpuscular Hemoglobin 28.2 PG (26-34); Mean Corpuscular Volume 81.9 fL (80-100); Monocytes Absolute Auto 600 /uL (0-900); Monocytes Percent Auto 5.1 % (3-14); Neutrophils Absolute Auto 9200 /uL (1500-7000); Neutrophils Percent Auto 85.7 % (50-75); Platelet Count 278 X10^3/uL (150-400); Red Blood Cell Count 4.59 X10^6/uL (4.5-5.9); Red Cell Distribution Width 13.7 % (11.6-14.8); White Blood Cell Count 10.8 X10^3/uL (4.5-11.0)
[2019-12-16 12:11] LABS: INR 0.9 (0.9-1.3); Prothrombin Time 10.8 SECONDS (10.1-12.7)
[2019-12-16 12:12] LABS: Alanine Aminotransferase 16 IU/L (<50); Albumin 4.2 g/dL (3.5-5.0); Albumin Globulin Ratio 1.4 (1.0-2.8); Alkaline Phosphatase 142 U/L (38-126); Aspartate Aminotransferase 21 IU/L (17-59); Bilirubin Total 0.6 mg/dL (0.2-1.3); Blood Urea Nitrogen 17 mg/dL (9-20); Carbon Dioxide 25 mmol/L (22-32); Chloride 96 mmol/L (98-107); Estimated Glomerular Filt Rate 47.1 mL/min (>60); Glucose 386 mg/dL (70-100); HEMOLYSIS < 15 (0-50); Lipase 42 U/L (23-300); Potassium 4.5 mmol/L (3.4-5.1); Sodium 133 mmol/L (137-145); Total Protein 7.2 g/dL (6.3-8.2)
[2019-12-16 12:14] LABS: PTT Partial Thromboplastin Tim 31 SECONDS (26.4-36.2)
--- NOTE | 2019-12-16 12:36 | ED_ITS ---
HPI - Abdominal Pain <BRIANNA Murray - Last Filed: 12/16/19 20:50> General Chief Complaint: Abdominal Pain Stated Complaint: stomach cramps/back Time Seen by Provider: 12/16/19 12:09 Source: patient Mode of arrival: Family Vehicle Limitations: no limitations History of Present Illness HPI narrative: This is a 54-year-old male, former smoker, with history of chronic back pain due to herniated disc, insulin-dependent diabetes with p eripheral neuropathy presents to ED with ex- who is caregiver with chief complain of generalized abdominal cramping, bilateral low back pain which is same as his chronic back pain. Patient takes maintenance Oxy for chronic back pain but has not been able to take medication since last Thursday and has not been checking his blood sugar or taking insulin since he is not eating. Patient reports his abdominal pain is similar when he had DKA but has not changed when he was evaluated 2 days ago in pain character or location. Patient vomits clear liquid if he has taken water previously otherwise just dry heaving. Patient has indwelling Mcgee catheter since last visit to ED 2 days ago. According to Aaliyah, patient had severe abdominal pain and was evaluated at [facility] this past weekend and released to home with Roseanne. Patient had unresolved abdominal pain nausea and vomiting and return to ED 2 days ago and had extensive workup done and discharged to home with constipation and urinary retention. Patient denies fever. Patient states he had 2-3 soft and good bowel movements at home and had another bowel movement in ED today. Aaliyah emptied 2 times Mcgee bag which was half full since discharged to home. Patient's PCP is Dr. Blackwell but is not available for another week according to the clinic. Related Data Home Medications Medication Instructions Recorded Confirmed amlodipine 10 mg PO DAILY #0 06/21/17 07/13/19 atorvastatin [Lipitor] 40 mg PO DAILY #0 06/21/17 03/02/19 gabapentin [Neurontin] 300 mg PO TID #0 06/21/17 07/13/19 insulin glargine [Basaglar KwikPen 100 unit SQ QDAY #0 06/21/17 07/13/19 U-100 Insulin] insulin glulisine U-100 [Apidra 25 unit SQ TID #0 06/21/17 SoloStar U-100 Insulin] lisinopril 40 mg PO QDAY #0 06/21/17 omeprazole 20 mg PO QDAY #0 06/21/17 clonidine HCl 0.1 mg tablet 0.1 mg PO BID 07/13/19 07/13/19 gabapentin 300 mg capsule 300 mg PO TID 07/13/19 07/13/19 pantoprazole 40 mg tablet,delayed 40 mg PO DAILY 07/13/19 07/13/19 release hydrocodone-acetaminophen tab 12/16/19 Previous Rx's Medication Instructions Recorded hydrocodone-acetaminophen [[place]] 1 tab PO Q4HP PRN #10 tab 06/21/17 [id number] 1 - 2 tab PO Q4HP PRN #12 tab 06/24/17 tramadol 50 mg PO BID PRN #10 tab 03/02/19 celecoxib 200 mg capsule 200 mg PO DAILY #30 cap 07/13/19 cyclobenzaprine 10 mg tablet 10 mg PO BID PRN #60 tab 07/13/19 gabapentin 600 mg tablet 600 mg PO TID #90 tab 07/13/19 dicyclomine 10 - 20 mg PO TID #14 cap 12/16/19 promethazine 12.5 - 25 mg PO Q6H PRN #10 tab 12/16/19 Allergies Allergy/AdvReac Type Severity Reaction Status Date / Time No Known Drug Allergies Allergy Verified 12/16/19 11:40 Review of Systems <BRIANNA Murray - Last Filed: 12/16/19 20:50> Review of Systems Narrative: General: Denies fever, chills, fatigue, malaise, sweats. HEENT: Denies sinus pain, ear pain, sore throat, difficulty swallowing, dizziness. Respiratory: Denies dyspnea, cough, wheezing, hemoptysis, sputum. Cardiovascular: Denies chest pain, palpitations, orthopnea, edema. Gastrointestinal: See HPI : See HPI Musculoskeletal: See HPI Skin: Denies rash, skin lesions, or other. Neurologic: Denies weakness, headache, numbness, change in speech, confusion, seizures, incoordination. Psychiatric: No concerning psychosocial issues. 12-point review of systems is negative except for those stated above. Patient History <BRIANNA Murray - Last Filed: 12/16/19 20:50> Medical History (Updated 12/16/19 @ 19:06 by BRIANNA Murray) Back pain (Acute) Depression (Acute) Diabetes (Acute) Diabetic peripheral neuropathy associated with type 2 diabetes mellitus (Acute) Facet arthropathy, lumbosacral (Acute) Herniated nucleus pulposus, L4-5 (Acute) Hyperlipidemia (Acute) Hypertension (Acute) Morbid obesity due to excess calories (Acute) Ventral hernia (Acute) Surgical History History of appendectomy (Acute) Social History marital status: lives independently: Yes Smoking Status: Former smoker Smokeless tobacco user: other alcohol intake: never substance use type: marijuana Smoking Status: Former smoker alcohol intake frequency: 0-2 drinks per day Substance Use Type: marijuana Exam <BRIANNA Murray - Last Filed: 12/16/19 20:50> Narrative Exam Narrative: GEN: Alert, oriented x 3, ill appearing and well nourished, and actively dry heaving during initial encounter. Head: Normal cephalic, atraumatic. No scalp or temporal tenderness, palpable mass or rash. EYES: Pupils are equal, round, and reactive to light and accommodation. Extraocular muscles are intact bilaterally. There is no subconjunctival hemorrhage, exudate and sclera non-icteric. ENT: Hearing grossly intact. Nose without bleeding, purulent discharge or deviation. Mucous membrane dry, no mucosal lesion. Throat without erythema, tonsillar hypertrophy or exudate. Uvula in midline, airway patent. Neck: Trachea in midline. No JVD, non-tender without lymphadenopathy. No masses or thyroid megaly. Supple, non-tender and no meningeal signs. CARDIAC: Normal regular rate and rhythm without murmurs, gallops, or rubs. No chest wall tenderness. No peripheral edema, cyanosis or pallor. Capillary refi ll is less than 2 seconds. RESPIRATORY: Lungs are clear to auscultate bilaterally. No cough, wheezes, rales, or rhonchi. No stridor, respiratory distress, increase work of breathing, or accessary muscle used. ABD: Abdomen soft, mild tenderness to palpate in bilateral upper quadrant, no abdominal distension. No guarding or rebound tenderness to palpate. Bowel sounds are normal in all 4 quadrants. There is no palpable masses or organomegaly. EXT: Full painless ROM of all extremities with no loss of sensation, strength, effusion or edema. SKIN: Warm, dry, normal color for patient. No erythema, lesions or rash over visible areas. BACK: Nontender without deformity or crepitance. No flank tenderness. NEUROLOGICAL: Alert and oriented to place, time and person. Sensation and motor function intact bilaterally. No facial droops, dysphasia. PSYCHIATRIC: Good judgement and reason, without hallucinations, abnormal affect or abnormal behaviors during the examination. Patient is not suicidal. Initial Vital Signs Initial Vital Signs: Vital Signs Temperature 98.9 F 12/16/19 11:36 Pulse Rate 103 H 12/16/19 11:36 Respiratory Rate 22 12/16/19 11:36 Blood Pressure 183/88 H 12/16/19 11:36 Pulse Oximetry 98 12/16/19 11:36 <Norma Kaufman DO - Last Filed: 12/17/19 07:32> Initial Vital Signs Initial Vital Signs: Vital Signs Temperature 98.9 F 12/16/19 11:36 Pulse Rate 103 H 12/16/19 11:36 Respiratory Rate 22 12/16/19 11:36 Blood Pressure 183/88 H 12/16/19 11:36 Pulse Oximetry 98 12/16/19 11:36 Scores <BRIANNA Murray - Last Filed: 12/16/19 20:50> HEART Score Heart Score history: Slightly Suspicious Heart Score EKG: Non-Specific repolarization disturbance Heart Score Age: 45-64 years old Heart Score risk factors: 1-2 risk factors Heart Score troponin: < or = to normal limit Heart Score Total: 3 qSOFA Altered Mental Status (GCS <15): No Respiratory rate greater than/equal to 22: No Systolic blood pressure less than or equal to 100: No qSOFA Total: 0 0-1 Not High Risk 1-3 High risk Course <BRIANNA Murray - Last Filed: 12/16/19 20:50> Course Course Narrative: Stopped IVF infusion gait to elevated pro BNP of 1520. Rechecking FSBG. Orders Ordered: Discontinued Medications Dicyclomine HCl (Bentyl) 10 mg PO NOW ONE Stop: 12/16/19 17:49 Last Admin: 12/16/19 18:12 Dose: 10 mg Documented by: LESTER Diphenhydramine HCl (Benadryl) 25 mg IV NOW ONE Stop: 12/16/19 13:10 Last Admin: 12/16/19 13:22 Dose: 25 mg Documented by: LESTER Hydromorphone HCl (Dilaudid) 0.5 mg IV NOW ONE Stop: 12/16/19 15:08 Last Admin: 12/16/19 15:23 Dose: 0.5 mg Documented by: LESTER Sodium Chloride (Normal Saline 0.9%) 1,000 mls @ 1,000 mls/hr IV BOLUS ONE Stop: 12/16/19 13:27 Last Admin: 12/16/19 12:45 Dose: 1,000 mls/hr Documented by: LESTER Sodium Chloride (Normal Saline 0.9%) 1,000 mls @ 150 mls/hr IV CONT SUSAN Last Infusion: 12/16/19 19:45 Dose: 150 mls/hr Documented by: ALEKFARBienvenido Admin: 12/16/19 15:03 Dose: 150 mls/hr Documented by: LESTER Sodium Chloride (Normal Saline 0.9%) 1,000 mls @ 150 mls/hr IV CONT SUSAN Insulin Detemir (Levemir Flextouch) 35 unit SUBCUT NOW ONE Stop: 12/16/19 14:04 Last Admin: 12/16/19 15:04 Dose: 35 unit Documented by: LESTER Cosigned by: JULIO CÉSAR Metoclopramide HCl (Reglan) 10 mg IV NOW ONE Stop: 12/16/19 13:10 Last Admin: 12/16/19 13:23 Dose: 10 mg Documented by: LESTER Morphine Sulfate (Morphine) 4 mg IV NOW ONE Stop: 12/16/19 12:29 Last Admin: 12/16/19 12:45 Dose: 4 mg Documented by: LESTER Morphine Sulfate (Morphine) 2 mg IV NOW ONE Stop: 12/16/19 13:10 Last Admin: 12/16/19 13:23 Dose: 2 mg Documented by: LESTER Ondansetron HCl (Zofran) 4 mg IV NOW ONE Stop: 12/16/19 12:29 Last Admin: 12/16/19 12:44 Dose: 4 mg Documented by: LESTER Oxycodone/Acetaminophen (Percocet 5/325) 2 tab PO NOW ONE Stop: 12/16/19 16:55 Last Admin: 12/16/19 17:28 Dose: 2 tab Documented by: LESTER Pantoprazole Sodium (Protonix) 40 mg IV NOW ONE Stop: 12/16/19 12:37 Last Admin: 12/16/19 12:44 Dose: 40 mg Documented by: LESTER Reevaluation(s) Reevaluation #1: mildly improved nausea and pain Time: 13:20 Reevaluation #2: pain and nausea improved Time: 14:00 Reevaluation #3: recurring pain and requesting med. Medicating with 2 tabs of Percocet and repeating cardiac enzymes for elevated CK MB. The patient is tolerating clear liquid. Time: 16:57 Additional Reevaluation(s): 1844-patient reports improved abdominal cramping after Percocet and additional Bentyl. He has been able to tolerate water w/o nausea or vomiting. Consultations Consultation #1: Dr. Duffy-lab findings, intractable abdominal cramping. Gentle hydration upto 2 liter, recheck pain after two percocet post one hour. Time: 17:40 Vital Signs Vital signs: Vital Signs - 8 hr 12/16/19 12:54 12/16/19 13:00 12/16/19 13:30 Pulse Rate 97 H 96 H 96 H Blood Pressure Pulse Oximetry 98 97 98 12/16/19 14:00 12/16/19 14:30 12/16/19 15:00 Pulse Rate 93 H 94 H 101 H Blood Pressure Pulse Oximetry 97 97 98 12/16/19 15:30 12/16/19 16:00 12/16/19 16:30 Pulse Rate 99 H 98 H 100 H Blood Pressure Pulse Oximetry 97 97 99 12/16/19 16:48 Pulse Rate 99 H Blood Pressure 173/70 H Pulse Oximetry 98 <Norma Kaufman DO - Last Filed: 12/17/19 07:32> Orders Ordered: Discontinued Medications Dicyclomine HCl (Bentyl) 10 mg PO NOW ONE Stop: 12/16/19 17:49 Last Admin: 12/16/19 18:12 Dose: 10 mg Documented by: LESTER Diphenhydramine HCl (Benadryl) 25 mg IV NOW ONE Stop: 12/16/19 13:10 Last Admin: 12/16/19 13:22 Dose: 25 mg Documented by: LESTER Hydromorphone HCl (Dilaudid) 0.5 mg IV NOW ONE Stop: 12/16/19 15:08 Last Admin: 12/16/19 15:23 Dose: 0.5 mg Documented by: LESTER Sodium Chloride (Normal Saline 0.9%) 1,000 mls @ 1,000 mls/hr IV BOLUS ONE Stop: 12/16/19 13:27 Last Admin: 12/16/19 12:45 Dose: 1,000 mls/hr Documented by: LESTER Sodium Chloride (Normal Saline 0.9%) 1,000 mls @ 150 mls/hr IV CONT SUSAN Last Infusion: 12/16/19 19:45 Dose: 150 mls/hr Documented by: Admin: 12/16/19 15:03 Dose: 150 mls/hr Documented by: LESTER Sodium Chloride (Normal Saline 0.9%) 1,000 mls @ 150 mls/hr IV CONT SUSAN Insulin Detemir (Levemir Flextouch) 35 unit SUBCUT NOW ONE Stop: 12/16/19 14:04 Last Admin: 12/16/19 15:04 Dose: 35 unit Documented by: LESTER Cosigned by: JULIO CÉSAR Metoclopramide HCl (Reglan) 10 mg IV NOW ONE Stop: 12/16/19 13:10 Last Admin: 12/16/19 13:23 Dose: 10 mg Documented by: LESTER Morphine Sulfate (Morphine) 4 mg IV NOW ONE Stop: 12/16/19 12:29 Last Admin: 12/16/19 12:45 Dose: 4 mg Documented by: LESTER Morphine Sulfate (Morphine) 2 mg IV NOW ONE Stop: 12/16/19 13:10 Last Admin: 12/16/19 13:23 Dose: 2 mg Documented by: LESTER Ondansetron HCl (Zofran) 4 mg IV NOW ONE Stop: 12/16/19 12:29 Last Admin: 12/16/19 12:44 Dose: 4 mg Documented by: LESTER Oxycodone/Acetaminophen (Percocet 5/325) 2 tab PO NOW ONE Stop: 12/16/19 16:55 Last Admin: 12/16/19 17:28 Dose: 2 tab Documented by: LESTER Pantoprazole Sodium (Protonix) 40 mg IV NOW ONE Stop: 12/16/19 12:37 Last Admin: 12/16/19 12:44 Dose: 40 mg Documented by: LESTER Vital Signs Vital signs: Vital Signs - 8 hr 12/16/19 12:54 12/16/19 13:00 12/16/19 13:30 Pulse Rate 97 H 96 H 96 H Blood Pressure Pulse Oximetry 98 97 98 12/16/19 14:00 12/16/19 14:30 12/16/19 15:00 Pulse Rate 93 H 94 H 101 H Blood Pressure Pulse Oximetry 97 97 98 12/16/19 15:30 12/16/19 16:00 12/16/19 16:30 Pulse Rate 99 H 98 H 100 H Blood Pressure Pulse Oximetry 97 97 99 12/16/19 16:48 Pulse Rate 99 H Blood Pressure 173/70 H Pulse Oximetry 98 MDM - Abdominal Pain <BRIANNA Murray - Last Filed: 12/16/19 20:50> Differential Diagnosis Differential diagnosis: Likely abdominal pain and other (Narcotic medication withdrawal, hyperglycemia, DKA, nausea/vomiting, UTI) Medical Records Attestation: I reviewed the patient's medical records. Lab Data Attestation: I reviewed the patient's lab results. Result diagrams: 12/16/19 11:35 12/16/19 11:35 Labs: Lab Results 12/16/19 12/16/19 12/16/19 Range/Units 11:35 11:35 11:35 WBC 10.8 (4.5-11.0) X10^3/uL RBC 4.59 (4.5-5.9) X10^6/uL Hgb 13.0 L (13.5-17.5) g/dL Hct 37.6 L (41-53) % MCV 81.9 (80-100) fL MCH 28.2 (26-34) PG MCHC 34.5 (30-36) % RDW 13.7 (11.6-14.8) % Plt Count 278 (150-400) X10^3/uL Neut % (Auto) 85.7 H (50-75) % Lymph % (Auto) 8.6 L (25-40) % [place] % (Auto) 5.1 (3-14) % Eos % (Auto) 0.1 L (2-4) % Baso % (Auto) 0.5 (0-2) % Neut # (Auto) 9200 H (0290-3510) /uL Lymph # (Auto) 900 L (1039-5028) /uL [place] # (Auto) 600 (0-900) /uL Eos # (Auto) 0 (0-450) /uL Baso # (Auto) 100 (0-100) /uL PT 10.8 (10.1-12.7) SECONDS INR 0.9 (0.9-1.3) APTT 31 D (26.4-36.2) SECONDS Sodium 133 L (137-145) mmol/L Potassium 4.5 (3.4-5.1) mmol/L Chloride 96 L (98-107) mmol/L Carbon Dioxide 25 (22-32) mmol/L BUN 17 (9-20) mg/dL Creatinine 1.55 H (0.66-1.25) mg/dL Estimated GFR 47.1 L (>60) mL/min BUN/Creatinine Ratio 11.0 (6-22) Glucose 386 H D (70-100) mg/dL Lactate (0.7-2.1) mmol/L Calcium 10.0 (8.4-10.2) mg/dL Total Bilirubin 0.6 (0.2-1.3) mg/dL AST 21 (17-59) IU/L ALT 16 (<50) IU/L Alkaline Phosphatase 142 H (38-126) U/L Total Creatine Kinase (55-170) U/L CK-MB (CK-2) (<2.37) ng/mL CK-MB (CK-2) Rel Index (1.5-5.0) % Troponin I (0.01-0.034) ng/mL NT-Pro-B Natriuret Pep (<125) pg/mL Total Protein 7.2 (6.3-8.2) g/dL Albumin 4.2 (3.5-5.0) g/dL Globulin 3.0 (1.7-4.1) g/dL Albumin/Globulin Ratio 1.4 (1.0-2.8) Lipase 42 (23-300) U/L Procalcitonin (<0.5) ng/mL Urine RBC (0-5/HPF) Urine WBC (0-5/HPF) Urine Bacteria (None) Ur Culture Indicated? 12/16/19 12/16/19 12/16/19 Range/Units 11:35 11:35 11:35 WBC (4.5-11.0) X10^3/uL RBC (4.5-5.9) X10^6/uL Hgb (13.5-17.5) g/dL Hct (41-53) % MCV (80-100) fL MCH (26-34) PG MCHC (30-36) % RDW (11.6-14.8) % Plt Count (150-400) X10^3/uL Neut % (Auto) (50-75) % Lymph % (Auto) (25-40) % [place] % (Auto) (3-14) % Eos % (Auto) (2-4) % Baso % (Auto) (0-2) % Neut # (Auto) (7909-9988) /uL Lymph # (Auto) (8434-6390) /uL [place] # (Auto) (0-900) /uL Eos # (Auto) (0-450) /uL Baso # (Auto) (0-100) /uL PT (10.1-12.7) SECONDS INR (0.9-1.3) APTT (26.4-36.2) SECONDS Sodium (137-145) mmol/L Potassium (3.4-5.1) mmol/L Chloride (98-107) mmol/L Carbon Dioxide (22-32) mmol/L BUN (9-20) mg/dL Creatinine (0.66-1.25) mg/dL Estimated GFR (>60) mL/min BUN/Creatinine Ratio (6-22) Glucose (70-100) mg/dL Lactate 1.5 (0.7-2.1) mmol/L Calcium (8.4-10.2) mg/dL Total Bilirubin (0.2-1.3) mg/dL AST (17-59) IU/L ALT (<50) IU/L Alkaline Phosphatase (38-126) U/L Total Creatine Kinase 131 (55-170) U/L CK-MB (CK-2) 2.87 H (<2.37) ng/mL CK-MB (CK-2) Rel Index 2.2 (1.5-5.0) % Troponin I 0.032 (0.01-0.034) ng/mL NT-Pro-B Natriuret Pep (<125) pg/mL Total Protein (6.3-8.2) g/dL Albumin (3.5-5.0) g/dL Globulin (1.7-4.1) g/dL Albumin/Globulin Ratio (1.0-2.8) Lipase (23-300) U/L Procalcitonin 0.33 (<0.5) ng/mL Urine RBC (0-5/HPF) Urine WBC (0-5/HPF) Urine Bacteria (None) Ur Culture Indicated? 12/16/19 12/16/19 12/16/19 Range/Units 12:50 16:44 16:44 WBC (4.5-11.0) X10^3/uL RBC (4.5-5.9) X10^6/uL Hgb (13.5-17.5) g/dL Hct (41-53) % MCV (80-100) fL MCH (26-34) PG MCHC (30-36) % RDW (11.6-14.8) % Plt Count (150-400) X10^3/uL Neut % (Auto) (50-75) % Lymph % (Auto) (25-40) % [place] % (Auto) (3-14) % Eos % (Auto) (2-4) % Baso % (Auto) (0-2) % Neut # (Auto) (3593-3322) /uL Lymph # (Auto) (3959-7283) /uL [place] # (Auto) (0-900) /uL Eos # (Auto) (0-450) /uL Baso # (Auto) (0-100) /uL PT (10.1-12.7) SECONDS INR (0.9-1.3) APTT (26.4-36.2) SECONDS Sodium (137-145) mmol/L Potassium (3.4-5.1) mmol/L Chloride (98-107) mmol/L Carbon Dioxide (22-32) mmol/L BUN (9-20) mg/dL Creatinine (0.66-1.25) mg/dL Estimated GFR (>60) mL/min BUN/Creatinine Ratio (6-22) Glucose (70-100) mg/dL Lactate (0.7-2.1) mmol/L Calcium (8.4-10.2) mg/dL Total Bilirubin (0.2-1.3) mg/dL AST (17-59) IU/L ALT (<50) IU/L Alkaline Phosphatase (38-126) U/L Total Creatine Kinase 107 (55-170) U/L CK-MB (CK-2) 2.38 H (<2.37) ng/mL CK-MB (CK-2) Rel Index 2.2 (1.5-5.0) % Troponin I 0.035 H (0.01-0.034) ng/mL NT-Pro-B Natriuret Pep 1520 H (<125) pg/mL Total Protein (6.3-8.2) g/dL Albumin (3.5-5.0) g/dL Globulin (1.7-4.1) g/dL Albumin/Globulin Ratio (1.0-2.8) Lipase (23-300) U/L Procalcitonin (<0.5) ng/mL Urine RBC 10-30/hpf H (0-5/HPF) Urine WBC 0-1/hpf (0-5/HPF) Urine Bacteria Moderate (10-30) H (None) Ur Culture Indicated? Cult not indicated Point of care testing: Point of Care Testing Glucose POC 279 Urine Dip Bedside Urine Glucose 1000 mg/dl Bedside Urine Bilirubin - Negative Bedside Urine Ketone +++ 80 Urine Specific [place] 1.015 Bedside Urine Occult Blood ++ Bedside Urine pH 6.0 Bedside Urine Protein +++ 300 Bedside Urine Urobilinogen - Negative Bedside Urine Nitrite - Negative Bedside Urine Leukocytes +/- 15 Esterase ECG Data Attestation: I personally reviewed and interpreted this ECG as follows: Prior ECG tracings: available for review Interpretation: Normal sinus rhythm with left anterior fascicular block. Left dominant axis. MI interval 158, QRS duration 124, QT/QTc 382/485. Nonspecific ST and T with abnormality No changes from prior ECG tracings. MDM Narrative Medical decision making narrative: This is 54-year-old gentleman who return to ED with abdominal cramping and nausea and vomiting which prevented him to take his routine oral medications including hydrocodone (per outside pharmacy record) for chronic back pain for last 3 days. He has history of insulin- dependent diabetes but has not been checking fingerstick glucose and not been taking insulin either since has not been eating her his ex- who is caregiver. Patient reports abdominal pain characteristic and location had not been changed since 2 days ago when he had abdominal/pelvis CT that time with findings of constipation and urinary retention. Patient reports good bowel movements after taking magnesium citrate and he has indwelling Mcgee catheter this time which has been draining well per caregiver. Patient's nausea and vomiting, abdominal pain was initially treated with IV Zofran and morphine with very mild improvement. Patient was additionally medicated with Benadryl, Reglan, morphine which helped his symptoms. Due to no changes in pain character, location and after discussing this with patient, additional CT test on abdomen/pelvis was deferred at this time. Patient also complained back pain but no changes from his chronic back pain and no further imaging test has been done at this time. Patient denies urinary incontinence but occasional difficulty with urination and has to strain. Denies known history of benign prostate enlargement. Primary care physician declined the d/c Mcgee catheter. EKG shows normal sinus rhythm with left anterior fascicular block and no changes from prior EKG tracings. No acute ST changes. Normal white count today with slightly elevated neutrophil count. Mildly decreased sodium with chloride of 133/96 with normal potassium. Serum Blood glucose was 386 with normal CO2. Slightly elevated creatinine level of 1.55 and estimated GFR of 47.1 and patient had worse creatinine level of 2.0 with 35.3 of GFR in the past. Normal lactate level and procalcitonin level. Initial CK level of 131 with CK-MB of 2.87 and normal Troponin I of 0.032 (0.01-0.034). Normal CK MB relative index of 2.2. Patient was hydrated with 1 L of normal saline and additional gently IV hydration of 700 ml. Patient was medicated additionally with Dilaudid for pain management. Patient was able to tolerate small sips of clear liquid without vomiting. Repeated cardiac enzymes post 4 hour. Improved CK-MB of 2.38. Troponin was very slightly elevated as 0.035. pro BNP was drawn and indicates 1520. Patient denies short of breath. No increased work of breathing with within normal range of room air O2 sat of 97-98%. Patient's case was discussed with Dr. Duffy for consultation and possible admission for observation with physical findings, labs including very mildly elevated cardiac enzymes. It was suggested gentle hydration with elevated blood sugar and ongoing nausea and vomiting and recheck patient's pain after his routine pain medication. Administered 2 Percocet and additional Bentyl for abdominal cramping which improved patient's pain. According to outside pharmacy record, patient takes hydrocodone/APAP 10/325 mg and not oxy. Patient recalls last treadmill test about 3 years ago with normal findings per Dr. Schulte. It is likely patient's nausea and vomiting and abdominal pain did not improve after constipation has been improved due to patient stop taking narcotic pain medication last 3 days abruptly. With repeated pain medication administration and to types of anti nausea medication, patient's symptoms have improved. Patient advised to manage his blood sugar better regardless not eating. Patient advised taking half dose his routine long-acting insulin is not eating and advised to check his fingerstick blood glucose regularly. Also, the patient's symptoms may due to narcotic medication withdrawals, and advised to continue with his routine medications after nausea and vomiting has been controlled. Additional anti emetic Phenergan has been prescribed along Bentyl. Patient declined her rectal form of Phenergan at this time and prefers oral form. Patient advised to follow-up with Dr. Meng for urinary retention and deferred Mcgee catheter DC. Informed patient to return to ED if Mcgee catheter removal per Dr. Meng. No indication of UTI at this time. Return precautions were discussed with patient and spouse and will try outpatient treatment with additional antiemetic if Zofran is not effective and abdominal cramping pain medication Bentyl as needed in addition to his routine pain medication. Patient and caregiver Aaliyah (ex-) verbalized understanding and in agreement with treatment plan. <Norma Kaufman, DO - Last Filed: 12/17/19 07:32> Lab Data Labs: Lab Results 12/16/19 12/16/19 12/16/19 Range/Units 11:35 11:35 11:35 WBC 10.8 (4.5-11.0) X10^3/uL RBC 4.59 (4.5-5.9) X10^6/uL Hgb 13.0 L (13.5-17.5) g/dL Hct 37.6 L (41-53) % MCV 81.9 (80-100) fL MCH 28.2 (26-34) PG MCHC 34.5 (30-36) % RDW 13.7 (11.6-14.8) % Plt Count 278 (150-400) X10^3/uL Neut % (Auto) 85.7 H (50-75) % Lymph % (Auto) 8.6 L (25-40) % [place] % (Auto) 5.1 (3-14) % Eos % (Auto) 0.1 L (2-4) % Baso % (Auto) 0.5 (0-2) % Neut # (Auto) 9200 H (2101-9949) /uL Lymph # (Auto) 900 L (3035-0308) /uL [place] # (Auto) 600 (0-900) /uL Eos # (Auto) 0 (0-450) /uL Baso # (Auto) 100 (0-100) /uL PT 10.8 (10.1-12.7) SECONDS INR 0.9 (0.9-1.3) APTT 31 D (26.4-36.2) SECONDS Sodium 133 L (137-145) mmol/L Potassium 4.5 (3.4-5.1) mmol/L Chloride 96 L (98-107) mmol/L Carbon Dioxide 25 (22-32) mmol/L BUN 17 (9-20) mg/dL Creatinine 1.55 H (0.66-1.25) mg/dL Estimated GFR 47.1 L (>60) mL/min BUN/Creatinine Ratio 11.0 (6-22) Glucose 386 H D (70-100) mg/dL Lactate (0.7-2.1) mmol/L Calcium 10.0 (8.4-10.2) mg/dL Total Bilirubin 0.6 (0.2-1.3) mg/dL AST 21 (17-59) IU/L ALT 16 (<50) IU/L Alkaline Phosphatase 142 H (38-126) U/L Total Creatine Kinase (55-170) U/L CK-MB (CK-2) (<2.37) ng/mL CK-MB (CK-2) Rel Index (1.5-5.0) % Troponin I (0.01-0.034) ng/mL NT-Pro-B Natriuret Pep (<125) pg/mL Total Protein 7.2 (6.3-8.2) g/dL Albumin 4.2 (3.5-5.0) g/dL Globulin 3.0 (1.7-4.1) g/dL Albumin/Globulin Ratio 1.4 (1.0-2.8) Lipase 42 (23-300) U/L Procalcitonin (<0.5) ng/mL Urine RBC (0-5/HPF) Urine WBC (0-5/HPF) Urine Bacteria (None) Ur Culture Indicated? 12/16/19 12/16/19 12/16/19 Range/Units 11:35 11:35 11:35 WBC (4.5-11.0) X10^3/uL RBC (4.5-5.9) X10^6/uL Hgb (13.5-17.5) g/dL Hct (41-53) % MCV (80-100) fL MCH (26-34) PG MCHC (30-36) % RDW (11.6-14.8) % Plt Count (150-400) X10^3/uL Neut % (Auto) (50-75) % Lymph % (Auto) (25-40) % [place] % (Auto) (3-14) % Eos % (Auto) (2-4) % Baso % (Auto) (0-2) % Neut # (Auto) (7460-6327) /uL Lymph # (Auto) (3030-6448) /uL [place] # (Auto) (0-900) /uL Eos # (Auto) (0-450) /uL Baso # (Auto) (0-100) /uL PT (10.1-12.7) SECONDS INR (0.9-1.3) APTT (26.4-36.2) SECONDS Sodium (137-145) mmol/L Potassium (3.4-5.1) mmol/L Chloride (98-107) mmol/L Carbon Dioxide (22-32) mmol/L BUN (9-20) mg/dL Creatinine (0.66-1.25) mg/dL Estimated GFR (>60) mL/min BUN/Creatinine Ratio (6-22) Glucose (70-100) mg/dL Lactate 1.5 (0.7-2.1) mmol/L Calcium (8.4-10.2) mg/dL Total Bilirubin (0.2-1.3) mg/dL AST (17-59) IU/L ALT (<50) IU/L Alkaline Phosphatase (38-126) U/L Total Creatine Kinase 131 (55-170) U/L CK-MB (CK-2) 2.87 H (<2.37) ng/mL CK-MB (CK-2) Rel Index 2.2 (1.5-5.0) % Troponin I 0.032 (0.01-0.034) ng/mL NT-Pro-B Natriuret Pep (<125) pg/mL Total Protein (6.3-8.2) g/dL Albumin (3.5-5.0) g/dL Globulin (1.7-4.1) g/dL Albumin/Globulin Ratio (1.0-2.8) Lipase (23-300) U/L Procalcitonin 0.33 (<0.5) ng/mL Urine RBC (0-5/HPF) Urine WBC (0-5/HPF) Urine Bacteria (None) Ur Culture Indicated? 12/16/19 12/16/19 12/16/19 Range/Units 12:50 16:44 16:44 WBC (4.5-11.0) X10^3/uL RBC (4.5-5.9) X10^6/uL Hgb (13.5-17.5) g/dL Hct (41-53) % MCV (80-100) fL MCH (26-34) PG MCHC (30-36) % RDW (11.6-14.8) % Plt Count (150-400) X10^3/uL Neut % (Auto) (50-75) % Lymph % (Auto) (25-40) % [place] % (Auto) (3-14) % Eos % (Auto) (2-4) % Baso % (Auto) (0-2) % Neut # (Auto) (9829-7476) /uL Lymph # (Auto) (7255-1205) /uL [place] # (Auto) (0-900) /uL Eos # (Auto) (0-450) /uL Baso # (Auto) (0-100) /uL PT (10.1-12.7) SECONDS INR (0.9-1.3) APTT (26.4-36.2) SECONDS Sodium (137-145) mmol/L Potassium (3.4-5.1) mmol/L Chloride (98-107) mmol/L Carbon Dioxide (22-32) mmol/L BUN (9-20) mg/dL Creatinine (0.66-1.25) mg/dL Estimated GFR (>60) mL/min BUN/Creatinine Ratio (6-22) Glucose (70-100) mg/dL Lactate (0.7-2.1) mmol/L Calcium (8.4-10.2) mg/dL Total Bilirubin (0.2-1.3) mg/dL AST (17-59) IU/L ALT (<50) IU/L Alkaline Phosphatase (38-126) U/L Total Creatine Kinase 107 (55-170) U/L CK-MB (CK-2) 2.38 H (<2.37) ng/mL CK-MB (CK-2) Rel Index 2.2 (1.5-5.0) % Troponin I 0.035 H (0.01-0.034) ng/mL NT-Pro-B Natriuret Pep 1520 H (<125) pg/mL Total Protein (6.3-8.2) g/dL Albumin (3.5-5.0) g/dL Globulin (1.7-4.1) g/dL Albumin/Globulin Ratio (1.0-2.8) Lipase (23-300) U/L Procalcitonin (<0.5) ng/mL Urine RBC 10-30/hpf H (0-5/HPF) Urine WBC 0-1/hpf (0-5/HPF) Urine Bacteria Moderate (10-30) H (None) Ur Culture Indicated? Cult not indicated Point of care testing: Point of Care Testing Glucose POC 279 Urine Dip Bedside Urine Glucose 1000 mg/dl Bedside Urine Bilirubin - Negative Bedside Urine Ketone +++ 80 Urine Specific [place] 1.015 Bedside Urine Occult Blood ++ Bedside Urine pH 6.0 Bedside Urine Protein +++ 300 Bedside Urine Urobilinogen - Negative Bedside Urine Nitrite - Negative Bedside Urine Leukocytes +/- 15 Esterase Discharge Plan Departure Patient Disposition: Home Clinical Impression: Abdominal cramps, Elevated blood sugar Nausea & vomiting Qualifiers: Vomiting type: unspecified Vomiting Intractability: non-intractable Qualified Code(s): R11.2 - Nausea with vomiting, unspecified Discharge Date/Time: 12/16/19 19:40 Instructions: DI for Abdominal Pain-Adult, DI for Hyperglycemia -- Adult, DI for Urinary Retention in Men, Nausea and Vomiting-Adult Activity Restrictions/Additional Instructions: You have been diagnosed with [abdominal cramping pain, back pain, nausea/vomiting, elevated blood sugar, abnormal cardiac enzymes. Your initial blood sugar was 386 and you were treated with Levemir 35 units (1/2 dose of your normal dose). Please check your blood sugar even do you can not tolerate solids and use half of your normal long-acting insulin. You were treated with multiple doses of pain medications and Zofran and Phenergan for nausea and vomiting. Worsening nausea and vomiting is may due to withdrawal symptoms from discontinue pain medications abruptly for last couple of days. Mildly elevated CK-MB with normal CK-MB index and troponin without EKG changes. Slightly elevated pro BNP but likely you were intravascularly dehydrated.]. What to do: *Take your medications as directed. Continue with current medications including better hyperglycemia control. Bentyl for abdominal cramping and Phenergan for nausea medication have been transmitted to [facility] in [place]. Please use these medications as needed. Please continue with adequate hydration with small sips of liquid. Please try to eat bland diet in small bites at a time. Please contact Dr. Meng to discussed urinary retention and Mcgee catheter removal. *Follow up with your primary care provider in 2-3 days, call for an appointment. Let them know you were seen in the ED and that we asked you to be seen in follow up. Please follow-up with abdominal pain, hyperglycemia, chronic back pain. Please discuss for further cardiac evaluation. *Return to ED if you have any new, worsening, or concerning symptoms, such as [fever, worsening pain, unable to tolerate fluids/soft diet, chest pain, breathing difficulty, or any acute concerns]. Prescriptions: New promethazine 25 mg tablet 12.5 - 25 mg PO Q6H PRN (Reason: nausea and vomiting) Qty: 10 RF: 0 dicyclomine 10 mg capsule 10 - 20 mg PO TID Qty: 14 RF: 0 No Action amlodipine 10 MG tablet 10 mg PO DAILY Qty: 0 RF: 0 omeprazole 20 MG capsule,delayed release(DR/EC) 20 mg PO QDAY Qty: 0 RF: 0 lisinopril 40 MG tablet 40 mg PO QDAY Qty: 0 RF: 0 atorvastatin [Lipitor] 40 MG tablet 40 mg PO DAILY Qty: 0 RF: 0 gabapentin [Neurontin] 300 MG capsule 300 mg PO TID Qty: 0 RF: 0 insulin glargine [Basaglar KwikPen U-100 Insulin] 100 UNIT/1 ML insulin pen 100 unit SQ QDAY Qty: 0 RF: 0 insulin glulisine U-100 [Apidra SoloStar U-100 Insulin] 100 UNIT/1 ML insulin pen 25 unit SQ TID Qty: 0 RF: 0 hydrocodone-acetaminophen [[place]] 5 MG/325 MG tablet 1 tab PO Q4HP PRNQty: 10 RF: 0 [id number] 1 EACH tablet 1 - 2 tab PO Q4HP PRNQty: 12 RF: 0 tramadol 50 mg tablet 50 mg PO BID PRN (Reason: pain) Qty: 10 RF: 0 hydrocodone-acetaminophen 10-325 mg tablet RF: 0 clonidine HCl 0.1 mg tablet 0.1 mg PO BID RF: 0 gabapentin 300 mg capsule 300 mg PO TID RF: 0 pantoprazole 40 mg tablet,delayed release (DR/EC) 40 mg PO DAILY RF: 0 gabapentin 600 mg tablet 600 mg PO TID Qty: 90 RF: 0 cyclobenzaprine 10 mg tablet 10 mg PO BID PRN (Reason: muscle spasm) Qty: 60 RF: 0 celecoxib [Celebrex] 200 mg capsule 200 mg PO DAILY Qty: 30 RF: 0 Referrals: Terrance Blackwell MD [Primary Care Provider] - Camille Meng MD [Physician] - <Norma Kaufman DO - Last Filed: 12/17/19 07:32> Cosign ED Attending Cosignature Attestation: I was immediately available in the department for consultation. Documentation has been reviewed. I agree with assessment and plan.
[2019-12-16] MEDS: PANTOPRAZOLE 40 MG VIAL IV (12:44)
[2019-12-16] MEDS: ONDANSETRON 4 MG/2 ML INJ IV (12:44)
[2019-12-16] MEDS: SODIUM CHLORIDE 0.9% 1,000 ML 1000 ML IV (12:45)
[2019-12-16] MEDS: MORPHINE 4 MG/ML INJ IV (12:45)
[2019-12-16 13:10] LABS: Bacteria Urine Moderate (10-30); Culture Indicated Urine Cult Not Indicated; RBC Urine 10-30/HPF (0-5/HPF); WBC Urine 0-1/HPF (0-5/HPF)
[2019-12-16] MEDS: diphenhydrAMINE 50 MG/ML VIAL 25 MG IV (13:22)
[2019-12-16] MEDS: METOCLOPRAMIDE 10 MG/2 ML INJ IV (13:23)
[2019-12-16] MEDS: MORPHINE 2 MG/ML INJ IV (13:23)
[2019-12-16] MEDS: SODIUM CHLORIDE 0.9% 1,000 ML 150 ML IV (15:03)
[2019-12-16] MEDS: INSULIN DETEMIR 100 UNIT/ML INSULN.PEN 35 UNIT SUBCUT (15:04)
[2019-12-16] MEDS: HYDROMORPHONE 0.5 MG INJ IV (15:23)
[2019-12-16 15:52] LABS: Lactate (Lactic Acid) 1.5 mmol/L (0.7-2.1)
[2019-12-16 15:53] LABS: Creatine Kinase 131 U/L (55-170)
[2019-12-16 16:06] LABS: Troponin I 0.032 ng/mL (0.01-0.034)
[2019-12-16 16:09] LABS: CKMB % Relative Index 2.2 % (1.5-5.0); Creatine Kinase MB 2.87 ng/mL (<2.37)
[2019-12-16 16:13] LABS: Procalcitonin 0.33 ng/mL (<0.5)
[2019-12-16 17:06] LABS: Creatine Kinase 107 U/L (55-170)
[2019-12-16 17:15] LABS: NT-proBNP (BNP-Adult 18+) 1520 pg/mL (<125)
[2019-12-16 17:18] LABS: Troponin I 0.035 ng/mL (0.01-0.034)
[2019-12-16 17:21] LABS: CKMB % Relative Index 2.2 % (1.5-5.0); Creatine Kinase MB 2.38 ng/mL (<2.37)
[2019-12-16] MEDS: OXYCODONE/ACETAMINOPHEN 5/325 TABLET 2 TAB PO (17:28)
[2019-12-16] MEDS: DICYCLOMINE 10 MG CAPSULE PO (18:12)
--- NOTE | 2019-12-30 09:12 | PC.NURSE ---
Late Entry: IV NS 1000 mL bolus completed at 1345 hours.
== END 2019-12-16 19:40 | disposition home or self-care (01) ==
PROVIDERS: Emergency Medicine; Emergency Provider Nurse Practitioner Family; Family Provider Nurse Practitioner Gerontology; PCP Internal Medicine
DX: R10.9 Unspecified abdominal pain (principal); E11.65 Type 2 diabetes mellitus with hyperglycemia; Z79.4 Long term (current) use of insulin; R33.9 Retention of urine, unspecified; M54.5 Low back pain; R11.2 Nausea with vomiting, unspecified; R79.89 Other specified abnormal findings of blood chemistry
CPT/HCPCS: 36415; 80053; 81003; 81015; 82550; 82553; 82962; 83605; 83690; 83880; 84145; 84484; 85025; 85610; 85730; 93005; 93010; 96361; 96372; 96374; 96375; 96376; 99284; C9113; J1170; J1200; J2270; J2405; J2765

== ENCOUNTER 2019-12-20 15:23 | Observation (INO) | payer MEDICARE, MEDICAID, SELFPAY ==
[2019-12-20] VITALS (16 sets, daily range): BP systolic 115–186; BP diastolic 57–88; PULSE 96–104; RESP 11–20; TEMP 36.7–36.8; O2SAT 96–100; BMI 30.8
[2019-12-20] MEDS: SODIUM CHLORIDE 0.9% 1,000 ML 1000 ML IV ×2 (15:58→21:06)
[2019-12-20] MEDS: ONDANSETRON 4 MG/2 ML INJ IV ×3 (15:58→23:55)
[2019-12-20 16:19] LABS: Add Manual Diff / Slide Review NO; Basophils Absolute Auto 100 /uL (0-100); Basophils Percent Auto 0.5 % (0-2); Eosinophils Absolute Auto 0 /uL (0-450); Hematocrit 41.7 % (41-53); Lymphocytes Absolute Auto 600 /uL (1100-4500); Lymphocytes Percent Auto 3.3 % (25-40); Mean Corpuscular HGB Conc 33.5 % (30-36); Mean Corpuscular Hemoglobin 27.8 PG (26-34); Mean Corpuscular Volume 82.8 fL (80-100); Monocytes Absolute Auto 500 /uL (0-900); Monocytes Percent Auto 2.7 % (3-14); Neutrophils Absolute Auto 15700 /uL (1500-7000); Neutrophils Percent Auto 93.5 % (50-75); Platelet Count 300 X10^3/uL (150-400); Red Blood Cell Count 5.04 X10^6/uL (4.5-5.9); Red Cell Distribution Width 13.3 % (11.6-14.8); White Blood Cell Count 16.8 X10^3/uL (4.5-11.0)
--- NOTE | 2019-12-20 16:21 | ED.NAVMDI ---
HPI - Nausea/Vomiting/Diarrhea <Renata EwingBRIANNA - Last Filed: 12/20/19 20:56> General Chief complaint: Nausea/Vomiting/Diarrhea Stated complaint: Nausea/Vomiting Time Seen by Provider: 12/20/19 15:37 Source: patient Mode of arrival: EMS Limitations: no limitations History of Present Illness HPI Narrative: 54yo male with DM II insulin dependant, herniated lumbar disc, and chronic vomiting, presents emergency department for continued vomiting and abdominal cramping. Patient has been seen multiple times in the past months for chronic vomiting and abdominal cramping. He has had an extensive workup which has been ultimately negative. Patient was last seen on 12/16/2019, 3 days ago. He was discharged home and reports that he has continued vomiting. Patient reports a sore throat today from vomiting and acid reflux. Patient takes oxycodone for his lower back pain. He has not been taking his medications regularly as he has been vomiting. Patient was seen on 12/14/2019 as well and discharged home with constipation and urinary tension. Patient has had good urinary output, reports having a soft stool yesterday. Patient states he has also been seen at [facility] for similar. He denies any fevers, blood in his vomit, blood in stool, shortness of breath, chest pain, diarrhea, dizziness, syncope, or any other concerns. Related Data Home Medications Medication Instructions Recorded Confirmed Alysia AshtonChaz U-100 Insulin 100 unit SQ QDAY #0 06/21/17 12/20/19 amlodipine 10 mg PO DAILY #0 06/21/17 12/20/19 atorvastatin [Lipitor] 40 mg PO DAILY #0 06/21/17 12/20/19 lisinopril 40 mg PO QDAY #0 06/21/17 12/20/19 omeprazole 20 mg PO QDAY #0 06/21/17 12/20/19 clonidine HCl 0.1 mg tablet 0.1 mg PO BID 07/13/19 12/20/19 Previous Rx's Medication Instructions Recorded gabapentin 600 mg tablet 600 mg PO TID #90 tab 07/13/19 dicyclomine 10 - 20 mg PO TID #14 cap 12/16/19 promethazine 12.5 - 25 mg PO Q6H PRN #10 tab 12/16/19 metoclopramide HCl 10 mg PO Q6H #10 tab 12/20/19 Allergies Allergy/AdvReac Type Severity Reaction Status Date / Time No Known Drug Allergies Allergy Verified 12/16/19 11:40 Review of Systems <BRIANNA Martinez - Last Filed: 12/20/19 20:56> Review of Systems Narrative: REVIEW OF SYSTEMS: GENERAL: Denies fever. HENT: No head trauma. EYES: No vision changes. CARDIOVASCULAR: No chest pain, palpitations, or orthopnea. RESPIRATORY: No shortness of breath or cough. GASTROINTESTINAL: Complains of abdominal pain and vomiting, see HPI GENITOURINARY: No flank pain, urinary incontinence, hesitancy, frequency, or dysuria. MUSCULOSKELETAL: No pain, weakness, or trauma. INTEGUMENTARY: No rash, lesions, or pruritus. NEURO: No numbness or tingling. PSYCH: No behavior or mood changes. Patient History <BRIANNA Martinez - Last Filed: 12/20/19 20:56> Medical History (Updated 12/20/19 @ 20:16 by BRIANNA Martinez) Back pain (Acute) Depression (Acute) Diabetes (Acute) Diabetic peripheral neuropathy associated with type 2 diabetes mellitus (Acute) Facet arthropathy, lumbosacral (Acute) Herniated nucleus pulposus, L4-5 (Acute) Hyperlipidemia (Acute) Hypertension (Acute) Morbid obesity due to excess calories (Acute) Ventral hernia (Acute) Surgical History History of appendectomy (Acute) Social History marital status: household members: none lives independently: Yes Smoking Status: Former smoker Smokeless tobacco user: other alcohol intake: never substance use type: marijuana Smoking Status: Former smoker alcohol intake frequency: 0-2 drinks per day Substance Use Type: marijuana Exam <BRIANNA Martinez - Last Filed: 12/20/19 20:56> Initial Vital Signs Initial Vital Signs: Vital Signs Temperature 98.1 F 12/20/19 15:42 Pulse Rate 104 H 12/20/19 15:42 Respiratory Rate 20 12/20/19 15:42 Blood Pressure 182/88 H 12/20/19 15:42 Pulse Oximetry 99 12/20/19 15:42 PHYSICAL EXAMINATION: GENERAL: Alert and cooperative. Answers questions promptly and appropriately. Vital signs noted. HENT: Normocephalic, atraumatic. Hearing intact. Oral mucosa is pink and moist. EYES: Conjunctiva pink, sclera white, no periorbital swelling. CARDIOVASCULAR: S1 and S2 sounds normal. Tachycardia, regular rhythm, no murmurs, clicks, or bruits. No pedal edema. RESPIRATORY: Normal respiratory rate, trachea midline, airway patent. No stridor, nasal flaring or accessory muscle use. Lungs are clear in all bishop without wheeze, rhonchi, or crackles. GASTROINTESTINAL: Bowel sounds normoactive. Abdomen is soft, diffuse tenderness. No organomegaly, no palpable masses. Patient seen dry heaving. GENITALURINARY: No flank tenderness. MUSCULOSKELETAL: Normal gait and coordination. Equal tone and mass bilaterally. EXTREMITIES: CMS intact. SKIN: Warm, dry, soft, appropriate color for ethnicity. No lesions, rashes, or wounds to visualized areas. NEURO: Alert and Oriented X 3. Good coordination. No ataxia, or sensory deficits, or cognitive issues. PSYCH: Appropriate affect and mood. <Papito Sorensen DO - Last Filed: 12/21/19 02:32> Initial Vital Signs Initial Vital Signs: Vital Signs Temperature 98.1 F 12/20/19 15:42 Pulse Rate 104 H 12/20/19 15:42 Respiratory Rate 20 12/20/19 15:42 Blood Pressure 182/88 H 12/20/19 15:42 Pulse Oximetry 99 12/20/19 15:42 Course <BRIANNA Martinez - Last Filed: 12/20/19 20:56> Course Course Narrative: Patient was given fluids and ondansetron and Reglan. Vomiting was resolved, patient was able to eat ice chips. CT was ordered due to continued abdominal pain and elevated white count. 1930: I spoke with BRIANNA Borrego as patient has an acidotic anion gap of 23 and hyperglycemia. Patient was accepted to observation. Orders Ordered: ED Orders 12/20/19 19:42 Consult to HOTEL CONTROLLER - Lead [employer]er Apprentice Stat 12/20/19 19:46 Venous Blood Gas Stat Acetaminophen (Tylenol) 975 mg PO Q8H [facility] Last Admin: 12/20/19 22:29 Dose: 975 mg Documented by: VARUN Amlodipine Besylate (Norvasc) 10 mg PO DAILY [facility] Atorvastatin Calcium (Lipitor) 40 mg PO BEDTIME [facility] Bisacodyl (Dulcolax) 10 mg MO DAILY PRN PRN Reason: Constipation Clonidine HCl (Catapres) 0.1 mg PO BID [facility] Last Admin: 12/20/19 23:04 Dose: Not Given Documented by: VARUN Enoxaparin Sodium (Lovenox) 40 mg SUBCUT DAILY [facility] Gabapentin (Neurontin) 600 mg PO TID [facility] Last Admin: 12/20/19 23:04 Dose: 600 mg Documented by: VARUN Sodium Chloride (Normal Saline 0.9%) 1,000 mls @ 100 mls/hr IV CONT [facility] Last Admin: 12/20/19 22:28 Dose: 100 mls/hr Documented by: VARUN Insulin Detemir (Levemir Flextouch) 70 unit SUBCUT BID [facility] Last Admin: 12/20/19 23:01 Dose: 70 unit Documented by: VARUN Cosigned by: JAMIE Insulin Glargine (Lantus Solostar (Pen)) 100 unit SUBCUT DAILY [facility] Lisinopril (Zestril) 40 mg PO DAILY [facility] Metoclopramide HCl (Reglan) 10 mg IV Q8HR [facility] Last Admin: 12/20/19 22:29 Dose: 10 mg Documented by: VARUN Naloxone HCl (Narcan) 0.2 mg IV Q2MIN PRN PRN Reason: Opiate Reversal Ondansetron HCl (Zofran) 4 mg IV Q6HR [facility] Last Admin: 12/20/19 23:55 Dose: 4 mg Documented by: VARUN Oxycodone HCl (Percolone) 5 mg PO Q6HR PRN PRN Reason: Pain, Moderate (4-6) Last Admin: 12/21/19 02:21 Dose: 5 mg Documented by: VARUN Oxycodone HCl (Percolone) 10 mg PO Q6HR PRN PRN Reason: Pain, Severe (7-10) Pantoprazole Sodium (Protonix) 40 mg IV DAILY [facility] Polyethylene Glycol (Miralax) 17 gm PO DAILY PRN PRN Reason: Constipation Discontinued Medications Sodium Chloride (Normal Saline 0.9%) 1,000 mls @ 1,000 mls/hr IV BOLUS ONE Stop: 12/20/19 16:56 Last Infusion: 12/20/19 17:35 Dose: 0 mls/hr Documented by: Admin: 12/20/19 15:58 Dose: 1,000 mls/hr Documented by: ADILIA Sodium Chloride (Normal Saline 0.9%) 1,000 mls @ 1,000 mls/hr IV BOLUS ONE Stop: 12/20/19 18:12 Last Admin: 12/20/19 19:10 Dose: Not Given Documented by: ALESSANDRO Sodium Chloride (Normal Saline 0.9%) 1,000 mls @ 1,000 mls/hr IV BOLUS ONE Stop: 12/20/19 21:55 Last Admin: 12/20/19 20:58 Dose: Not Given Documented by: ALESSANDRO Sodium Chloride (Normal Saline 0.9%) 1,000 mls @ 1,000 mls/hr IV BOLUS ONE Stop: 12/20/19 21:57 Last Infusion: 12/20/19 21:48 Dose: 0 mls/hr Documented by: Admin: 12/20/19 21:06 Dose: 1,000 mls/hr Documented by: SAMY Insulin Human Regular (Humulin R) 5 unit SUBCUT NOW ONE Stop: 12/20/19 19:40 Last Admin: 12/20/19 20:29 Dose: 5 unit Documented by: ALESSANDRO Cosigned by: ARPITA Ketorolac Tromethamine (Toradol) 30 mg IV NOW ONE Stop: 12/20/19 16:24 Last Admin: 12/20/19 16:43 Dose: 30 mg Documented by: ADILIA Metoclopramide HCl (Reglan) 10 mg IV NOW ONE Stop: 12/20/19 16:24 Last Admin: 12/20/19 16:44 Dose: 10 mg Documented by: ADILIA Nitroglycerin (Nitrostat) 0.4 mg SL NOW ONE Stop: 12/20/19 22:58 Last Admin: 12/20/19 22:57 Dose: 0.4 mg Documented by: VARUN Nitroglycerin (Nitro-Bid) 1 inch TOP NOW ONE Stop: 12/20/19 23:10 Last Admin: 12/21/19 00:15 Dose: 1 inch Documented by: VARUN Ondansetron HCl (Zofran) 4 mg IV NOW ONE Stop: 12/20/19 15:56 Last Admin: 12/20/19 15:58 Dose: 4 mg Documented by: ADILIA Ondansetron HCl (Zofran) 4 mg IV NOW ONE Stop: 12/20/19 19:15 Last Admin: 12/20/19 19:31 Dose: 4 mg Documented by: SAMY Pantoprazole Sodium (Protonix) 40 mg IV NOW ONE Stop: 12/20/19 16:24 Last Admin: 12/20/19 16:44 Dose: 40 mg Documented by: ADILIA Consultations Consultation #1: Patient staffed with Papito Sorensen discussed test, test results, and plan of care. Discussed anion gap, a VBG ordered. Vital Signs Vital signs: Vital Signs - 8 hr 12/20/19 19:00 12/20/19 19:01 12/20/19 19:30 Pulse Rate 97 H 97 H 99 H Respiratory Rate 11 L 11 L 20 Blood Pressure 160/76 H 158/79 H 12/20/19 20:00 Pulse Rate 96 H Respiratory Rate 11 L Blood Pressure 157/71 H <Papito Sorensen, - Last Filed: 12/21/19 02:32> Orders Ordered: ED Orders 12/20/19 19:42 Consult to H[employer]EL CONTROLLER - Lead [employer]er Apprentice Stat 12/20/19 19:46 Venous Blood Gas Stat Acetaminophen (Tylenol) 975 mg PO Q8H [facility] Last Admin: 12/20/19 22:29 Dose: 975 mg Documented by: VARUN Amlodipine Besylate (Norvasc) 10 mg PO DAILY [facility] Atorvastatin Calcium (Lipitor) 40 mg PO BEDTIME [facility] Bisacodyl (Dulcolax) 10 mg MO DAILY PRN PRN Reason: Constipation Clonidine HCl (Catapres) 0.1 mg PO BID [facility] Last Admin: 12/20/19 23:04 Dose: Not Given Documented by: VARUN Enoxaparin Sodium (Lovenox) 40 mg SUBCUT DAILY [facility] Gabapentin (Neurontin) 600 mg PO TID [facility] Last Admin: 12/20/19 23:04 Dose: 600 mg Documented by: VARUN Sodium Chloride (Normal Saline 0.9%) 1,000 mls @ 100 mls/hr IV CONT [facility] Last Admin: 12/20/19 22:28 Dose: 100 mls/hr Documented by: VARUN Insulin Detemir (Levemir Flextouch) 70 unit SUBCUT BID [facility] Last Admin: 12/20/19 23:01 Dose: 70 unit Documented by: VARUN Cosigned by: JAMIE Insulin Glargine (Lantus Solostar (Pen)) 100 unit SUBCUT DAILY [facility] Lisinopril (Zestril) 40 mg PO DAILY [facility] Metoclopramide HCl (Reglan) 10 mg IV Q8HR [facility] Last Admin: 12/20/19 22:29 Dose: 10 mg Documented by: VARUN Naloxone HCl (Narcan) 0.2 mg IV Q2MIN PRN PRN Reason: Opiate Reversal Ondansetron HCl (Zofran) 4 mg IV Q6HR [facility] Last Admin: 12/20/19 23:55 Dose: 4 mg Documented by: VARUN Oxycodone HCl (Percolone) 5 mg PO Q6HR PRN PRN Reason: Pain, Moderate (4-6) Last Admin: 12/21/19 02:21 Dose: 5 mg Documented by: VARUN Oxycodone HCl (Percolone) 10 mg PO Q6HR PRN PRN Reason: Pain, Severe (7-10) Pantoprazole Sodium (Protonix) 40 mg IV DAILY [facility] Polyethylene Glycol (Miralax) 17 gm PO DAILY PRN PRN Reason: Constipation Discontinued Medications Sodium Chloride (Normal Saline 0.9%) 1,000 mls @ 1,000 mls/hr IV BOLUS ONE Stop: 12/20/19 16:56 Last Infusion: 12/20/19 17:35 Dose: 0 mls/hr Documented by: Admin: 12/20/19 15:58 Dose: 1,000 mls/hr Documented by: ADILIA Sodium Chloride (Normal Saline 0.9%) 1,000 mls @ 1,000 mls/hr IV BOLUS ONE Stop: 12/20/19 18:12 Last Admin: 12/20/19 19:10 Dose: Not Given Documented by: ALESSANDRO Sodium Chloride (Normal Saline 0.9%) 1,000 mls @ 1,000 mls/hr IV BOLUS ONE Stop: 12/20/19 21:55 Last Admin: 12/20/19 20:58 Dose: Not Given Documented by: ALESSANDRO Sodium Chloride (Normal Saline 0.9%) 1,000 mls @ 1,000 mls/hr IV BOLUS ONE Stop: 12/20/19 21:57 Last Infusion: 12/20/19 21:48 Dose: 0 mls/hr Documented by: Admin: 12/20/19 21:06 Dose: 1,000 mls/hr Documented by: SAMY Insulin Human Regular (Humulin R) 5 unit SUBCUT NOW ONE Stop: 12/20/19 19:40 Last Admin: 12/20/19 20:29 Dose: 5 unit Documented by: ALESSANDRO Cosigned by: ARPITA Ketorolac Tromethamine (Toradol) 30 mg IV NOW ONE Stop: 12/20/19 16:24 Last Admin: 12/20/19 16:43 Dose: 30 mg Documented by: ADILIA Metoclopramide HCl (Reglan) 10 mg IV NOW ONE Stop: 12/20/19 16:24 Last Admin: 12/20/19 16:44 Dose: 10 mg Documented by: ADILIA Nitroglycerin (Nitrostat) 0.4 mg SL NOW ONE Stop: 12/20/19 22:58 Last Admin: 12/20/19 22:57 Dose: 0.4 mg Documented by: VARUN Nitroglycerin (Nitro-Bid) 1 inch TOP NOW ONE Stop: 12/20/19 23:10 Last Admin: 12/21/19 00:15 Dose: 1 inch Documented by: VARUN Ondansetron HCl (Zofran) 4 mg IV NOW ONE Stop: 12/20/19 15:56 Last Admin: 12/20/19 15:58 Dose: 4 mg Documented by: ADILIA Ondansetron HCl (Zofran) 4 mg IV NOW ONE Stop: 12/20/19 19:15 Last Admin: 12/20/19 19:31 Dose: 4 mg Documented by: SAMY Pantoprazole Sodium (Protonix) 40 mg IV NOW ONE Stop: 12/20/19 16:24 Last Admin: 12/20/19 16:44 Dose: 40 mg Documented by: ADILIA Vital Signs Vital signs: Vital Signs - 8 hr 12/20/19 19:00 12/20/19 19:01 12/20/19 19:30 Pulse Rate 97 H 97 H 99 H Respiratory Rate 11 L 11 L 20 Blood Pressure 160/76 H 158/79 H 07/21/20 20:00 Pulse Rate 96 H Respiratory Rate 11 L Blood Pressure 157/71 H MDM - Nausea/Vomiting/Diarrhea <Renata EwingBRIANNA - Last Filed: 12/20/19 20:56> Medical Records Attestation: I reviewed the patient's medical records. Lab Data Attestation: I reviewed the patient's lab results. Result diagrams: 12/21/19 02:05 12/21/19 02:05 Labs: Lab Results 12/20/19 12/20/19 12/20/19 Range/Units 16:12 16:12 16:12 WBC 16.8 H (4.5-11.0) X10^3/uL RBC 5.04 (4.5-5.9) X10^6/uL Hgb 14.0 (13.5-17.5) g/dL Hct 41.7 (41-53) % MCV 82.8 (80-100) fL MCH 27.8 (26-34) PG MCHC 33.5 (30-36) % RDW 13.3 (11.6-14.8) % Plt Count 300 (150-400) X10^3/uL Neut % (Auto) 93.5 H (50-75) % Lymph % (Auto) 3.3 L (25-40) % Gosper % (Auto) 2.7 L (3-14) % Eos % (Auto) 0.0 L (2-4) % Baso % (Auto) 0.5 (0-2) % Neut # (Auto) 89971 H (5091-4203) /uL Lymph # (Auto) 600 L (5245-9761) /uL Gosper # (Auto) 500 (0-900) /uL Eos # (Auto) 0 (0-450) /uL Baso # (Auto) 100 (0-100) /uL PT 11.3 (10.1-12.7) SECONDS INR 1.0 (0.9-1.3) APTT 30 (26.4-36.2) SECONDS VBG pH (7.33-7.43) VBG pCO2 (45-50) mmHg VBG pO2 (35-45) mmHg VBG HCO3 (23-28) mmol/L VBG Total CO2 (24-29) mmol/L VBG O2 Saturation (70-75) % VBG Base Excess (0-4) mmol/L Sodium 134 L (137-145) mmol/L Potassium 4.0 (3.4-5.1) mmol/L Chloride 93 L (98-107) mmol/L Carbon Dioxide 18 L (22-32) mmol/L BUN 22 H (9-20) mg/dL Creatinine 1.69 H (0.66-1.25) mg/dL Estimated GFR 42.7 L (>60) mL/min BUN/Creatinine Ratio 13.0 (6-22) Glucose 440 H (70-100) mg/dL Calcium 9.8 (8.4-10.2) mg/dL Phosphorus (2.5-4.5) mg/dL Magnesium (1.6-2.3) mg/dL Total Bilirubin 0.6 (0.2-1.3) mg/dL AST 19 (17-59) IU/L ALT 15 (<50) IU/L Alkaline Phosphatase 148 H (38-126) U/L Total Creatine Kinase (55-170) U/L CK-MB (CK-2) CK-MB (CK-2) Rel Index Troponin I (0.01-0.034) ng/mL Total Protein 7.2 (6.3-8.2) g/dL Albumin 4.2 (3.5-5.0) g/dL Globulin 3.0 (1.7-4.1) g/dL Albumin/Globulin Ratio 1.4 (1.0-2.8) Lipase 39 (23-300) U/L Procalcitonin (<0.5) ng/mL Urine Color Urine Appearance Urine pH (4.5-8.0) Ur Specific Preble (1.000-1.035) Urine Protein (Negative) Urine Glucose (UA) (Negative) g/dL Urine Ketones (NEGATIVE) Urine Occult Blood (Negative) Urine Nitrate (Negative) Urine Bilirubin (NEGATIVE) Urine Urobilinogen (0.2) E.U./dL Ur Leukocyte Esterase (NEGATIVE) Urine RBC (0-5/HPF) Urine WBC (0-5/HPF) Ur Squamous Epith Cells (0-5/HPF) Urine Bacteria (None) Ur Culture Indicated? U Opiates 300ng/mL cut (Negative) Ur Oxycodone Screen (Negative) Urine Methadone Screen (Negative) Ur Barbiturates Screen (Negative) U Tricyclic Antidepress (Negative) Ur Phencyclidine Scrn (Negative) Ur Amphetamines Screen (Negative) U Methamphetamines Scrn (Negative) Ur MDMA Scrn (Ecstasy) (Negative) U Benzodiazepines Scrn (Negative) Urine Cocaine Screen (Negative) U Marijuana (THC) Screen (Negative) 12/20/19 12/20/19 12/20/19 Range/Units 16:12 16:12 16:12 WBC (4.5-11.0) X10^3/uL RBC (4.5-5.9) X10^6/uL Hgb (13.5-17.5) g/dL Hct (41-53) % MCV (80-100) fL MCH (26-34) PG MCHC (30-36) % RDW (11.6-14.8) % Plt Count (150-400) X10^3/uL Neut % (Auto) (50-75) % Lymph % (Auto) (25-40) % Gosper % (Auto) (3-14) % Eos % (Auto) (2-4) % Baso % (Auto) (0-2) % Neut # (Auto) (7185-0619) /uL Lymph # (Auto) (1960-8221) /uL Gosper # (Auto) (0-900) /uL Eos # (Auto) (0-450) /uL Baso # (Auto) (0-100) /uL PT (10.1-12.7) SECONDS INR (0.9-1.3) APTT (26.4-36.2) SECONDS VBG pH (7.33-7.43) VBG pCO2 (45-50) mmHg VBG pO2 (35-45) mmHg VBG HCO3 (23-28) mmol/L VBG Total CO2 (24-29) mmol/L VBG O2 Saturation (70-75) % VBG Base Excess (0-4) mmol/L Sodium (137-145) mmol/L Potassium (3.4-5.1) mmol/L Chloride (98-107) mmol/L Carbon Dioxide (22-32) mmol/L BUN (9-20) mg/dL Creatinine (0.66-1.25) mg/dL Estimated GFR (>60) mL/min BUN/Creatinine Ratio (6-22) Glucose (70-100) mg/dL Calcium (8.4-10.2) mg/dL Phosphorus (2.5-4.5) mg/dL Magnesium 2.1 (1.6-2.3) mg/dL Total Bilirubin (0.2-1.3) mg/dL AST (17-59) IU/L ALT (<50) IU/L Alkaline Phosphatase (38-126) U/L Total Creatine Kinase 88 (55-170) U/L CK-MB (CK-2) TNP CK-MB (CK-2) Rel Index TNP Troponin I 0.044 H (0.01-0.034) ng/mL Total Protein (6.3-8.2) g/dL Albumin (3.5-5.0) g/dL Globulin (1.7-4.1) g/dL Albumin/Globulin Ratio (1.0-2.8) Lipase (23-300) U/L Procalcitonin 0.13 (<0.5) ng/mL Urine Color Urine Appearance Urine pH (4.5-8.0) Ur Specific Preble (1.000-1.035) Urine Protein (Negative) Urine Glucose (UA) (Negative) g/dL Urine Ketones (NEGATIVE) Urine Occult Blood (Negative) Urine Nitrate (Negative) Urine Bilirubin (NEGATIVE) Urine Urobilinogen (0.2) E.U./dL Ur Leukocyte Esterase (NEGATIVE) Urine RBC (0-5/HPF) Urine WBC (0-5/HPF) Ur Squamous Epith Cells (0-5/HPF) Urine Bacteria (None) Ur Culture Indicated? U Opiates 300ng/mL cut (Negative) Ur Oxycodone Screen (Negative) Urine Methadone Screen (Negative) Ur Barbiturates Screen (Negative) U Tricyclic Antidepress (Negative) Ur Phencyclidine Scrn (Negative) Ur Amphetamines Screen (Negative) U Methamphetamines Scrn (Negative) Ur MDMA Scrn (Ecstasy) (Negative) U Benzodiazepines Scrn (Negative) Urine Cocaine Screen (Negative) U Marijuana (THC) Screen (Negative) 12/20/19 12/20/19 12/20/19 Range/Units 16:12 16:13 16:13 WBC (4.5-11.0) X10^3/uL RBC (4.5-5.9) X10^6/uL Hgb (13.5-17.5) g/dL Hct (41-53) % MCV (80-100) fL MCH (26-34) PG MCHC (30-36) % RDW (11.6-14.8) % Plt Count (150-400) X10^3/uL Neut % (Auto) (50-75) % Lymph % (Auto) (25-40) % Gosper % (Auto) (3-14) % Eos % (Auto) (2-4) % Baso % (Auto) (0-2) % Neut # (Auto) (3906-6220) /uL Lymph # (Auto) (3663-6502) /uL Gosper # (Auto) (0-900) /uL Eos # (Auto) (0-450) /uL Baso # (Auto) (0-100) /uL PT (10.1-12.7) SECONDS INR (0.9-1.3) APTT (26.4-36.2) SECONDS VBG pH (7.33-7.43) VBG pCO2 (45-50) mmHg VBG pO2 (35-45) mmHg VBG HCO3 (23-28) mmol/L VBG Total CO2 (24-29) mmol/L VBG O2 Saturation (70-75) % VBG Base Excess (0-4) mmol/L Sodium (137-145) mmol/L Potassium (3.4-5.1) mmol/L Chloride (98-107) mmol/L Carbon Dioxide (22-32) mmol/L BUN (9-20) mg/dL Creatinine (0.66-1.25) mg/dL Estimated GFR (>60) mL/min BUN/Creatinine Ratio (6-22) Glucose (70-100) mg/dL Calcium (8.4-10.2) mg/dL Phosphorus 4.7 H (2.5-4.5) mg/dL Magnesium (1.6-2.3) mg/dL Total Bilirubin (0.2-1.3) mg/dL AST (17-59) IU/L ALT (<50) IU/L Alkaline Phosphatase (38-126) U/L Total Creatine Kinase (55-170) U/L CK-MB (CK-2) CK-MB (CK-2) Rel Index Troponin I (0.01-0.034) ng/mL Total Protein (6.3-8.2) g/dL Albumin (3.5-5.0) g/dL Globulin (1.7-4.1) g/dL Albumin/Globulin Ratio (1.0-2.8) Lipase (23-300) U/L Procalcitonin (<0.5) ng/mL Urine Color Yellow Urine Appearance Clear Urine pH 5.0 (4.5-8.0) Ur Specific Preble 1.020 (1.000-1.035) Urine Protein 3+ H (Negative) Urine Glucose (UA) 2+ H (Negative) g/dL Urine Ketones 3+ H (NEGATIVE) Urine Occult Blood 2+ H (Negative) Urine Nitrate Negative (Negative) Urine Bilirubin Negative (NEGATIVE) Urine Urobilinogen 0.2 (0.2) E.U./dL Ur Leukocyte Esterase Negative (NEGATIVE) Urine RBC 0-1/hpf D (0-5/HPF) Urine WBC 0-1/hpf (0-5/HPF) Ur Squamous Epith Cells None seen (0-5/HPF) Urine Bacteria None seen (None) Ur Culture Indicated? Cult not indicated U Opiates 300ng/mL cut Negative (Negative) Ur Oxycodone Screen Positive H (Negative) Urine Methadone Screen Negative (Negative) Ur Barbiturates Screen Negative (Negative) U Tricyclic Antidepress Negative (Negative) Ur Phencyclidine Scrn Negative (Negative) Ur Amphetamines Screen Negative (Negative) U Methamphetamines Scrn Negative (Negative) Ur MDMA Scrn (Ecstasy) Negative (Negative) U Benzodiazepines Scrn Negative (Negative) Urine Cocaine Screen Negative (Negative) U Marijuana (THC) Screen Positive H (Negative) 12/20/19 Range/Units 19:46 WBC (4.5-11.0) X10^3/uL RBC (4.5-5.9) X10^6/uL Hgb (13.5-17.5) g/dL Hct (41-53) % MCV (80-100) fL MCH (26-34) PG MCHC (30-36) % RDW (11.6-14.8) % Plt Count (150-400) X10^3/uL Neut % (Auto) (50-75) % Lymph % (Auto) (25-40) % [place] % (Auto) (3-14) % Eos % (Auto) (2-4) % Baso % (Auto) (0-2) % Neut # (Auto) (7982-3692) /uL Lymph # (Auto) (7173-1921) /uL [place] # (Auto) (0-900) /uL Eos # (Auto) (0-450) /uL Baso # (Auto) (0-100) /uL PT (10.1-12.7) SECONDS INR (0.9-1.3) APTT (26.4-36.2) SECONDS VBG pH 7.34 (7.33-7.43) VBG pCO2 36.0 L (45-50) mmHg VBG pO2 25 L (35-45) mmHg VBG HCO3 19 L (23-28) mmol/L VBG Total CO2 20 L (24-29) mmol/L VBG O2 Saturation 41 L (70-75) % VBG Base Excess -7.0 L (0-4) mmol/L Sodium (137-145) mmol/L Potassium (3.4-5.1) mmol/L Chloride (98-107) mmol/L Carbon Dioxide (22-32) mmol/L BUN (9-20) mg/dL Creatinine (0.66-1.25) mg/dL Estimated GFR (>60) mL/min BUN/Creatinine Ratio (6-22) Glucose (70-100) mg/dL Calcium (8.4-10.2) mg/dL Phosphorus (2.5-4.5) mg/dL Magnesium (1.6-2.3) mg/dL Total Bilirubin (0.2-1.3) mg/dL AST (17-59) IU/L ALT (<50) IU/L Alkaline Phosphatase (38-126) U/L Total Creatine Kinase (55-170) U/L CK-MB (CK-2) CK-MB (CK-2) Rel Index Troponin I (0.01-0.034) ng/mL Total Protein (6.3-8.2) g/dL Albumin (3.5-5.0) g/dL Globulin (1.7-4.1) g/dL Albumin/Globulin Ratio (1.0-2.8) Lipase (23-300) U/L Procalcitonin (<0.5) ng/mL Urine Color Urine Appearance Urine pH (4.5-8.0) Ur Specific [place] (1.000-1.035) Urine Protein (Negative) Urine Glucose (UA) (Negative) g/dL Urine Ketones (NEGATIVE) Urine Occult Blood (Negative) Urine Nitrate (Negative) Urine Bilirubin (NEGATIVE) Urine Urobilinogen (0.2) E.U./dL Ur Leukocyte Esterase (NEGATIVE) Urine RBC (0-5/HPF) Urine WBC (0-5/HPF) Ur Squamous Epith Cells (0-5/HPF) Urine Bacteria (None) Ur Culture Indicated? U Opiates 300ng/mL cut (Negative) Ur Oxycodone Screen (Negative) Urine Methadone Screen (Negative) Ur Barbiturates Screen (Negative) U Tricyclic Antidepress (Negative) Ur Phencyclidine Scrn (Negative) Ur Amphetamines Screen (Negative) U Methamphetamines Scrn (Negative) Ur MDMA Scrn (Ecstasy) (Negative) U Benzodiazepines Scrn (Negative) Urine Cocaine Screen (Negative) U Marijuana (THC) Screen (Negative) Point of Care Testing Glucose POC [address] scan - abdomen/pelvis: Radiologist's Impression: [place] [address] CT Scan Report Signed Patient: Drew Hartmann PMR#: [id number] : 1965Acct:[id number] Age/Sex: 54 / MDate of Service: 12/20/19 Loc: ED Accession Number: [id number] Procedure: CT abdomen pelvis w con Ordering Provider: Renata Ewing PROCEDURE: CT ABDOMEN PELVIS W CON INDICATIONS: Diffuse abdominal pain, vomiting, elevated WBC TECHNIQUE: After the administration of intravenous contrast, 5 mm thick sections acquired from the diaphragm to the symphysis. 5 mm coronal and sagittal reformats were acquired. For radiation dose reduction, the following was used: automated exposure control, adjustment of mA and/or kV according to patient size. COMPARISON: Located Within [facility], CT, CT ABDOMEN PELVIS W CON, 12/14/2019, 18:06. FINDINGS: Image quality: Excellent. ABDOMEN: Lung bases: Lung bases are clear. Heart size is normal. Solid organs: Liver is mildly prominent with steatosis. Gallbladder is unremarkable . Biliary system is non dilated. Pancreas enhances normally. Spleen is normal in size and enhancement. No adrenal nodules. Kidneys demonstrate normal size and enhancement, without hydronephrosis. Left renal cyst is noted. Punctate low-attenuation focus in the inferior right renal pole is noted, too small to definitively characterize. It is unchanged. Peritoneum and bowel: Bowel loops demonstrate normal wall thickness and caliber. No free fluid or air. Scattered colonic diverticular present without associated inflammatory change. Nodes and vessels: No retroperitoneal or mesenteric adenopathy by size criteria. Aorta and inferior vena cava are normal in size. Miscellaneous: No ventral hernias. PELVIS: Genitourinary: Bladder is collapsed with a Mcgee catheter. Wall is diffusely thickened. There is air within the anterior nondependent bladder wall/collapsed lumen. Miscellaneous: No inguinal hernias or adenopathy. Bones: No suspicious bony lesions. No vertebral body compression fractures. IMPRESSION: 1. Air is noted within the bladder wall/anterior collapsed lumen as described above. Bladder is overall collapsed secondary to Mcgee catheter. Air can be reflective of infection or inflammation. 2. Diverticulosis. Dictated by: Marbella Dukes M.D. on 12/20/2019 at 17:49 Approved by: Marbella Dukes M.D. on 12/20/2019 at 17:51 ECG Data Interpretation: 1634: Sinus tachycardia, rate 106, MO interval 156, QTC 507. No ST elevation or ST depression. T-wave inversion noted in aVL. Findings are consistent with prior EKGs. EKG also viewed by Dr. Armas per protocol. [facility] Narrative Medical decision making narrative: 54yo male with a history of frequent vomiting episodes and insulin-dependent DMII presents to the emergency department for continued vomiting and abdominal pain. I suspect patient's symptoms may be caused by cyclic vomiting given his marijuana use and lack of other concerning findings on CT. Patient does have elevated liver enzymes and elevated white blood cell count which is most likely due to chronic vomiting. However, patient has anion gap acidosis due to lack of taking insulin and continued vomiting. Patient was admitted for further observation to [facility]. He was given fluids and insulin in the emergency department. Vomiting ceased after Reglan and Zofran. <Papito Sorensen, DO - Last Filed: 12/21/19 02:32> Lab Data Labs: Lab Results 12/20/19 12/20/19 12/20/19 Range/Units 16:12 16:12 16:12 WBC 16.8 H (4.5-11.0) X10^3/uL RBC 5.04 (4.5-5.9) X10^6/uL Hgb 14.0 (13.5-17.5) g/dL Hct 41.7 (41-53) % MCV 82.8 (80-100) fL MCH 27.8 (26-34) PG MCHC 33.5 (30-36) % RDW 13.3 (11.6-14.8) % Plt Count 300 (150-400) X10^3/uL Neut % (Auto) 93.5 H (50-75) % Lymph % (Auto) 3.3 L (25-40) % Gosper % (Auto) 2.7 L (3-14) % Eos % (Auto) 0.0 L (2-4) % Baso % (Auto) 0.5 (0-2) % Neut # (Auto) 89303 H (5417-2164) /uL Lymph # (Auto) 600 L (8104-0989) /uL Gosper # (Auto) 500 (0-900) /uL Eos # (Auto) 0 (0-450) /uL Baso # (Auto) 100 (0-100) /uL PT 11.3 (10.1-12.7) SECONDS INR 1.0 (0.9-1.3) APTT 30 (26.4-36.2) SECONDS VBG pH (7.33-7.43) VBG pCO2 (45-50) mmHg VBG pO2 (35-45) mmHg VBG HCO3 (23-28) mmol/L VBG Total CO2 (24-29) mmol/L VBG O2 Saturation (70-75) % VBG Base Excess (0-4) mmol/L Sodium 134 L (137-145) mmol/L Potassium 4.0 (3.4-5.1) mmol/L Chloride 93 L (98-107) mmol/L Carbon Dioxide 18 L (22-32) mmol/L BUN 22 H (9-20) mg/dL Creatinine 1.69 H (0.66-1.25) mg/dL Estimated GFR 42.7 L (>60) mL/min BUN/Creatinine Ratio 13.0 (6-22) Glucose 440 H (70-100) mg/dL Calcium 9.8 (8.4-10.2) mg/dL Phosphorus (2.5-4.5) mg/dL Magnesium (1.6-2.3) mg/dL Total Bilirubin 0.6 (0.2-1.3) mg/dL AST 19 (17-59) IU/L ALT 15 (<50) IU/L Alkaline Phosphatase 148 H (38-126) U/L Total Creatine Kinase (55-170) U/L CK-MB (CK-2) CK-MB (CK-2) Rel Index Troponin I (0.01-0.034) ng/mL Total Protein 7.2 (6.3-8.2) g/dL Albumin 4.2 (3.5-5.0) g/dL Globulin 3.0 (1.7-4.1) g/dL Albumin/Globulin Ratio 1.4 (1.0-2.8) Lipase 39 (23-300) U/L Procalcitonin (<0.5) ng/mL Urine Color Urine Appearance Urine pH (4.5-8.0) Ur Specific Preble (1.000-1.035) Urine Protein (Negative) Urine Glucose (UA) (Negative) g/dL Urine Ketones (NEGATIVE) Urine Occult Blood (Negative) Urine Nitrate (Negative) Urine Bilirubin (NEGATIVE) Urine Urobilinogen (0.2) E.U./dL Ur Leukocyte Esterase (NEGATIVE) Urine RBC (0-5/HPF) Urine WBC (0-5/HPF) Ur Squamous Epith Cells (0-5/HPF) Urine Bacteria (None) Ur Culture Indicated? U Opiates 300ng/mL cut (Negative) Ur Oxycodone Screen (Negative) Urine Methadone Screen (Negative) Ur Barbiturates Screen (Negative) U Tricyclic Antidepress (Negative) Ur Phencyclidine Scrn (Negative) Ur Amphetamines Screen (Negative) U Methamphetamines Scrn (Negative) Ur MDMA Scrn (Ecstasy) (Negative) U Benzodiazepines Scrn (Negative) Urine Cocaine Screen (Negative) U Marijuana (THC) Screen (Negative) 12/20/19 12/20/19 12/20/19 Range/Units 16:12 16:12 16:12 WBC (4.5-11.0) X10^3/uL RBC (4.5-5.9) X10^6/uL Hgb (13.5-17.5) g/dL Hct (41-53) % MCV (80-100) fL MCH (26-34) PG MCHC (30-36) % RDW (11.6-14.8) % Plt Count (150-400) X10^3/uL Neut % (Auto) (50-75) % Lymph % (Auto) (25-40) % Gosper % (Auto) (3-14) % Eos % (Auto) (2-4) % Baso % (Auto) (0-2) % Neut # (Auto) (0466-9696) /uL Lymph # (Auto) (8710-7985) /uL Gosper # (Auto) (0-900) /uL Eos # (Auto) (0-450) /uL Baso # (Auto) (0-100) /uL PT (10.1-12.7) SECONDS INR (0.9-1.3) APTT (26.4-36.2) SECONDS VBG pH (7.33-7.43) VBG pCO2 (45-50) mmHg VBG pO2 (35-45) mmHg VBG HCO3 (23-28) mmol/L VBG Total CO2 (24-29) mmol/L VBG O2 Saturation (70-75) % VBG Base Excess (0-4) mmol/L Sodium (137-145) mmol/L Potassium (3.4-5.1) mmol/L Chloride (98-107) mmol/L Carbon Dioxide (22-32) mmol/L BUN (9-20) mg/dL Creatinine (0.66-1.25) mg/dL Estimated GFR (>60) mL/min BUN/Creatinine Ratio (6-22) Glucose (70-100) mg/dL Calcium (8.4-10.2) mg/dL Phosphorus (2.5-4.5) mg/dL Magnesium 2.1 (1.6-2.3) mg/dL Total Bilirubin (0.2-1.3) mg/dL AST (17-59) IU/L ALT (<50) IU/L Alkaline Phosphatase (38-126) U/L Total Creatine Kinase 88 (55-170) U/L CK-MB (CK-2) TNP CK-MB (CK-2) Rel Index TNP Troponin I 0.044 H (0.01-0.034) ng/mL Total Protein (6.3-8.2) g/dL Albumin (3.5-5.0) g/dL Globulin (1.7-4.1) g/dL Albumin/Globulin Ratio (1.0-2.8) Lipase (23-300) U/L Procalcitonin 0.13 (<0.5) ng/mL Urine Color Urine Appearance Urine pH (4.5-8.0) Ur Specific Preble (1.000-1.035) Urine Protein (Negative) Urine Glucose (UA) (Negative) g/dL Urine Ketones (NEGATIVE) Urine Occult Blood (Negative) Urine Nitrate (Negative) Urine Bilirubin (NEGATIVE) Urine Urobilinogen (0.2) E.U./dL Ur Leukocyte Esterase (NEGATIVE) Urine RBC (0-5/HPF) Urine WBC (0-5/HPF) Ur Squamous Epith Cells (0-5/HPF) Urine Bacteria (None) Ur Culture Indicated? U Opiates 300ng/mL cut (Negative) Ur Oxycodone Screen (Negative) Urine Methadone Screen (Negative) Ur Barbiturates Screen (Negative) U Tricyclic Antidepress (Negative) Ur Phencyclidine Scrn (Negative) Ur Amphetamines Screen (Negative) U Methamphetamines Scrn (Negative) Ur MDMA Scrn (Ecstasy) (Negative) U Benzodiazepines Scrn (Negative) Urine Cocaine Screen (Negative) U Marijuana (THC) Screen (Negative) 12/20/19 12/20/19 12/20/19 Range/Units 16:12 16:13 16:13 WBC (4.5-11.0) X10^3/uL RBC (4.5-5.9) X10^6/uL Hgb (13.5-17.5) g/dL Hct (41-53) % MCV (80-100) fL MCH (26-34) PG MCHC (30-36) % RDW (11.6-14.8) % Plt Count (150-400) X10^3/uL Neut % (Auto) (50-75) % Lymph % (Auto) (25-40) % Gosper % (Auto) (3-14) % Eos % (Auto) (2-4) % Baso % (Auto) (0-2) % Neut # (Auto) (9199-0659) /uL Lymph # (Auto) (0922-8070) /uL Gosper # (Auto) (0-900) /uL Eos # (Auto) (0-450) /uL Baso # (Auto) (0-100) /uL PT (10.1-12.7) SECONDS INR (0.9-1.3) APTT (26.4-36.2) SECONDS VBG pH (7.33-7.43) VBG pCO2 (45-50) mmHg VBG pO2 (35-45) mmHg VBG HCO3 (23-28) mmol/L VBG Total CO2 (24-29) mmol/L VBG O2 Saturation (70-75) % VBG Base Excess (0-4) mmol/L Sodium (137-145) mmol/L Potassium (3.4-5.1) mmol/L Chloride (98-107) mmol/L Carbon Dioxide (22-32) mmol/L BUN (9-20) mg/dL Creatinine (0.66-1.25) mg/dL Estimated GFR (>60) mL/min BUN/Creatinine Ratio (6-22) Glucose (70-100) mg/dL Calcium (8.4-10.2) mg/dL Phosphorus 4.7 H (2.5-4.5) mg/dL Magnesium (1.6-2.3) mg/dL Total Bilirubin (0.2-1.3) mg/dL AST (17-59) IU/L ALT (<50) IU/L Alkaline Phosphatase (38-126) U/L Total Creatine Kinase (55-170) U/L CK-MB (CK-2) CK-MB (CK-2) Rel Index Troponin I (0.01-0.034) ng/mL Total Protein (6.3-8.2) g/dL Albumin (3.5-5.0) g/dL Globulin (1.7-4.1) g/dL Albumin/Globulin Ratio (1.0-2.8) Lipase (23-300) U/L Procalcitonin (<0.5) ng/mL Urine Color Yellow Urine Appearance Clear Urine pH 5.0 (4.5-8.0) Ur Specific Preble 1.020 (1.000-1.035) Urine Protein 3+ H (Negative) Urine Glucose (UA) 2+ H (Negative) g/dL Urine Ketones 3+ H (NEGATIVE) Urine Occult Blood 2+ H (Negative) Urine Nitrate Negative (Negative) Urine Bilirubin Negative (NEGATIVE) Urine Urobilinogen 0.2 (0.2) E.U./dL Ur Leukocyte Esterase Negative (NEGATIVE) Urine RBC 0-1/hpf D (0-5/HPF) Urine WBC 0-1/hpf (0-5/HPF) Ur Squamous Epith Cells None seen (0-5/HPF) Urine Bacteria None seen (None) Ur Culture Indicated? Cult not indicated U Opiates 300ng/mL cut Negative (Negative) Ur Oxycodone Screen Positive H (Negative) Urine Methadone Screen Negative (Negative) Ur Barbiturates Screen Negative (Negative) U Tricyclic Antidepress Negative (Negative) Ur Phencyclidine Scrn Negative (Negative) Ur Amphetamines Screen Negative (Negative) U Methamphetamines Scrn Negative (Negative) Ur MDMA Scrn (Ecstasy) Negative (Negative) U Benzodiazepines Scrn Negative (Negative) Urine Cocaine Screen Negative (Negative) U Marijuana (THC) Screen Positive H (Negative) 12/20/19 Range/Units 19:46 WBC (4.5-11.0) X10^3/uL RBC (4.5-5.9) X10^6/uL Hgb (13.5-17.5) g/dL Hct (41-53) % MCV (80-100) fL MCH (26-34) PG MCHC (30-36) % RDW (11.6-14.8) % Plt Count (150-400) X10^3/uL Neut % (Auto) (50-75) % Lymph % (Auto) (25-40) % Gosper % (Auto) (3-14) % Eos % (Auto) (2-4) % Baso % (Auto) (0-2) % Neut # (Auto) (3880-2819) /uL Lymph # (Auto) (6491-6959) /uL Gosper # (Auto) (0-900) /uL Eos # (Auto) (0-450) /uL Baso # (Auto) (0-100) /uL PT (10.1-12.7) SECONDS INR (0.9-1.3) APTT (26.4-36.2) SECONDS VBG pH 7.34 (7.33-7.43) VBG pCO2 36.0 L (45-50) mmHg VBG pO2 25 L (35-45) mmHg VBG HCO3 19 L (23-28) mmol/L VBG Total CO2 20 L (24-29) mmol/L VBG O2 Saturation 41 L (70-75) % VBG Base Excess -7.0 L (0-4) mmol/L Sodium (137-145) mmol/L Potassium (3.4-5.1) mmol/L Chloride (98-107) mmol/L Carbon Dioxide (22-32) mmol/L BUN (9-20) mg/dL Creatinine (0.66-1.25) mg/dL Estimated GFR (>60) mL/min BUN/Creatinine Ratio (6-22) Glucose (70-100) mg/dL Calcium (8.4-10.2) mg/dL Phosphorus (2.5-4.5) mg/dL Magnesium (1.6-2.3) mg/dL Total Bilirubin (0.2-1.3) mg/dL AST (17-59) IU/L ALT (<50) IU/L Alkaline Phosphatase (38-126) U/L Total Creatine Kinase (55-170) U/L CK-MB (CK-2) CK-MB (CK-2) Rel Index Troponin I (0.01-0.034) ng/mL Total Protein (6.3-8.2) g/dL Albumin (3.5-5.0) g/dL Globulin (1.7-4.1) g/dL Albumin/Globulin Ratio (1.0-2.8) Lipase (23-300) U/L Procalcitonin (<0.5) ng/mL Urine Color Urine Appearance Urine pH (4.5-8.0) Ur Specific Preble (1.000-1.035) Urine Protein (Negative) Urine Glucose (UA) (Negative) g/dL Urine Ketones (NEGATIVE) Urine Occult Blood (Negative) Urine Nitrate (Negative) Urine Bilirubin (NEGATIVE) Urine Urobilinogen (0.2) E.U./dL Ur Leukocyte Esterase (NEGATIVE) Urine RBC (0-5/HPF) Urine WBC (0-5/HPF) Ur Squamous Epith Cells (0-5/HPF) Urine Bacteria (None) Ur Culture Indicated? U Opiates 300ng/mL cut (Negative) Ur Oxycodone Screen (Negative) Urine Methadone Screen (Negative) Ur Barbiturates Screen (Negative) U Tricyclic Antidepress (Negative) Ur Phencyclidine Scrn (Negative) Ur Amphetamines Screen (Negative) U Methamphetamines Scrn (Negative) Ur MDMA Scrn (Ecstasy) (Negative) U Benzodiazepines Scrn (Negative) Urine Cocaine Screen (Negative) U Marijuana (THC) Screen (Negative) Point of Care Testing Glucose POC 387 Discharge Plan Departure Patient Disposition: Admitted as Observation Clinical Impression: Cyclic vomiting syndrome, History of metabolic acidosis with increased anion gap, Acute hyperglycemia Discharge Date/Time: 12/20/19 22:00 Instructions: DI for Vomiting -- Adult, DI for Cyclic Vomiting Syndrome-Child Additional Instructions: Thank you for entrusting me with your care today. As discussed, CT is negative for any concerning findings. Your laboratory work revealed low sodium, this was corrected with IV fluids. It is possible you may have a condition called cyclic vomiting. This causes individuals to vomit very frequently. Marijuana consent times worsened this condition. I have given you a prescription for Reglan for vomiting. Is very important that you make an appointment with your primary care provider in the next 1-2 weeks for further evaluation. Return to the emergency department for any new or worsening symptoms such as chest pain, shortness of breath, high fevers, or any other concerns. Referrals: Jami Magana MD [Non-Staff] - Terrance Blackwell MD [Primary Care Provider] - Admit Date/Time: 12/20/19 20:18 Admit Provider: Rob Reece <Papito Sorensen DO - Last Filed: 12/21/19 02:32> Cosign ED Attending Manature Attestation: I was immediately available in the department for consultation. This documentation has been reviewed and I agree with assessment and plan. Supervised by Papito Sorensen DO
[2019-12-20 16:24] LABS: Bacteria Urine None Seen
[2019-12-20 16:25] LABS: Appearance Urine UA CLEAR; Bilirubin Urine UA NEGATIVE (NEGATIVE); Color Urine UA YELLOW; Glucose Urine UA 2+ g/dL (Negative); Ketones Urine UA 3+ (NEGATIVE); Leukocyte Esterase Urine UA NEGATIVE (NEGATIVE); Nitrite Urine UA NEGATIVE (Negative); Occult Blood Urine UA 2+ (Negative); Protein Urine UA 3+ (Negative); Urobilinogen Urine UA 0.2 E.U./dL (0.2)
[2019-12-20 16:28] LABS: Prothrombin Time 11.3 SECONDS (10.1-12.7)
[2019-12-20 16:31] LABS: PTT Partial Thromboplastin Tim 30 SECONDS (26.4-36.2)
[2019-12-20 16:34] LABS: Culture Indicated Urine Cult Not Indicated; RBC Urine 0-1/HPF (0-5/HPF); Squamous Epithelial Cell Urine None Seen (0-5/HPF); WBC Urine 0-1/HPF (0-5/HPF)
[2019-12-20 16:34] LABS: Alanine Aminotransferase 15 IU/L (<50); Albumin 4.2 g/dL (3.5-5.0); Albumin Globulin Ratio 1.4 (1.0-2.8); Alkaline Phosphatase 148 U/L (38-126); Aspartate Aminotransferase 19 IU/L (17-59); Bilirubin Total 0.6 mg/dL (0.2-1.3); Blood Urea Nitrogen 22 mg/dL (9-20); Calcium 9.8 mg/dL (8.4-10.2); Carbon Dioxide 18 mmol/L (22-32); Chloride 93 mmol/L (98-107); Estimated Glomerular Filt Rate 42.7 mL/min (>60); Glucose 440 mg/dL (70-100); HEMOLYSIS < 15 (0-50); Lipase 39 U/L (23-300); Sodium 134 mmol/L (137-145); Total Protein 7.2 g/dL (6.3-8.2)
[2019-12-20 16:37] LABS: UR Morphine/Opiate cutoff 300 Negative (Negative); Ur Creatinine Normal (Normal); Ur Specific Gravity Normal (Normal); Urine Amphetamines Negative (Negative); Urine Barbiturates Negative (Negative); Urine Benzodiazepines Negative (Negative); Urine Cocaine Negative (Negative); Urine MDMA Negative (Negative); Urine Methadone Negative (Negative); Urine Methamphetamines Negative (Negative); Urine Oxycodone Positive (Negative); Urine Phencyclidine Negative (Negative); Urine Tetrahydrocannabinol Positive (Negative); Urine Tricyclic Antidepressant Negative (Negative); Urine pH Normal (Normal)
[2019-12-20] MEDS: KETOROLAC 60 MG/2 ML VIAL 30 MG IV (16:43)
[2019-12-20] MEDS: METOCLOPRAMIDE 10 MG/2 ML INJ IV ×2 (16:44→22:29)
[2019-12-20] MEDS: PANTOPRAZOLE 40 MG VIAL IV (16:44)
[2019-12-20 16:47] LABS: Creatine Kinase 88 U/L (55-170)
[2019-12-20 16:59] LABS: Troponin I 0.044 ng/mL (0.01-0.034)
--- NOTE | 2019-12-20 17:06 | PC.NURSE ---
Spoke with patients . She reports she is concerned about patients kidney function and that it is really low. Pt states we are not doing enough for him and that we need to figure out why he keeps vomiting. I explained that we are doing full workups on this patient including kidneys, cardiac, urine, liver, blood counts, imagine of his abdomen, EKG's, etc. I informed her that as an emergency department we rule out the emergent problems and follow up with primary care. She reports that the primary care doctor was going to call us and tell us what he wanted us to do. I told her we did not receive any such phone calls but we have medicated the patient and we are running our lab work and imaging as our providers are ordering for this pt. She reports she is right across the street if we need her.
--- NOTE | 2019-12-20 19:40 | PC.NURSE ---
X Aaliyah on phone and very upset that patient is being sent home. Long discussion with her regarding the limitations of our system which does not cover long-term care at home. Reassured that her feelings valid. Offered social work support. Call transferred to Oliverio BURNS.
--- NOTE | 2019-12-20 20:07 | CM.SWNOTE ---
CREDIT INTERN note CREDIT INTERN consult for patient's caregiver/ex- Aaliyah requested by LATASHA Nath. Pham transfers call to CREDIT INTERN. Aaliyah discusses patient health concerns with CREDIT INTERN. Per Aaliyah, patient has experienced significant decline in mobility since August, and Aaliyah has been coordinating all care for patient in addition to her timekeeper work. Aaliyah states that she is in process of applying patient for [facility], and CREDIT INTERN suggests discussing possibility of HH with patient's PCP, and CREDIT INTERN provides brief overview of role of HH. In discussing resources, CREDIT INTERN explains that, per LATASHA Nath, the ED staff is still evaluating patient's current health presentation, and that more information on appropriate support can be discussed pending the outcome of this evaluation. Aaliyah requests more information regarding patient's health and wants to speak with patient and RN in patient room. CREDIT INTERN informs LATASHA Nath who will follow up with Aaliyah after labs are drawn. GRANT Bennett
[2019-12-20 20:12] LABS: HCO3 VBG 19 mmol/L (23-28); Oxygen Saturation VBG 41 % (70-75); PO2 VBG 25 mmHg (35-45); Total CO2 VBG 20 mmol/L (24-29); pH VBG 7.34 (7.33-7.43)
[2019-12-20] MEDS: INSULIN REGULAR 100 UNIT/ML 3 ML VIAL SUBCUT (20:29)
[2019-12-20 20:42] LABS: Procalcitonin 0.13 ng/mL (<0.5)
[2019-12-20 21:40] LABS: COVID19 -Nasal RAPID Negative (Negative)
[2019-12-20 22:02] LABS: Magnesium 2.1 mg/dL (1.6-2.3); Phosphorous 4.7 mg/dL (2.5-4.5)
[2019-12-20] MEDS: SODIUM CHLORIDE 0.9% 1,000 ML 100 ML IV (22:28)
[2019-12-20] MEDS: ACETAMINOPHEN 325 MG TABLET 975 MG PO (22:29)
[2019-12-20 22:37] LABS: Troponin I 0.081 ng/mL (0.01-0.034)
[2019-12-20] MEDS: NITROGLYCERIN 0.4 MG SL TAB SL (22:57)
[2019-12-20] MEDS: INSULIN DETEMIR 100 UNIT/ML INSULN.PEN 70 UNIT SUBCUT (23:01)
[2019-12-20] MEDS: GABAPENTIN 600 MG TABLET PO (23:04)
--- NOTE | 2019-12-20 23:53 | P.HP_ITS ---
History of Present Illness History of Present Illness Date Patient Seen: 12/20/19 Time Patient Seen: 23:00 Chief complaint: Nausea/Vomiting Narrative: Mr. Drew Kim is a 54-year-old male patient with a history significant for diabetes with neuropathy, chronic kidney disease stage 3, urinary retention with Mcgee catheter, hypertension, hyperlipidemia, morbid obesity and low back pain who presents to the ER for continuing cyclic nausea vomiting. The patient has been to the ER 2 times previously for the same complaint. On 12/14/2019 the patient was found to have urinary retention and a Mcgee catheter placed. He also was constipated and laxatives provided. His rehydrated and improved resulting in discharge home. The patient returned on 12/15 for persistent nausea vomiting. At that time the patient was evaluated treated and fluid resuscitated. He was found to have hyperglycemia without DKA and had an elevated cardiac panel finding CK to be 107, CK-MB at 2.38 with an index of 2.2% and troponin elevated at 0.35 and a proBNP of 1520. The patient was can not discharged home returning today for continued symptoms of nausea vomiting and abdominal cramping. The patient states his emesis is nonbloody and reports no hematochezia or melena. He states these abdominal pain and cramping aggravates his chronic low back pain. On further investigation the patient reports left upper chest pain that has been consistent since the onset of his symptoms. He describes the pain as dull aching, nonradiating and is pleuritic in character. He denies complaints of fevers or chills but has had intermittent diaphoresis not associated with episodes of nausea. He has chest pain as above but denies palpitations. He endorses a remote history of chest pain evaluated by Dr. Schulte approximately 10-15 years ago which time he underwent a stress test that was found to be negative. He reports no shortness of breath has had no cough or wheezing. He has generalized abdominal pain, persistent nausea and vomiting, denies diarrhea. The patient additionally endorses a large weight loss from 280 lb to 214 over the last several months. He also describes we akness and falls. Upon arrival to the ER today the patient is a temperature of 98.1?, heart rate of 104, blood pressure 182/88, respirations 20 saturating 99% on room air. A CT of the abdomen and pelvis is obtained finding air in the bladder with bladder wall diffusely thickened and diverticulosis with no notation diverticulitis. Twelve lead EKG finds sinus tach rate of 106 with left anterior fascicular block and left ventricular hypertrophy. On laboratory analysis see has an elevated white count at 16.8 with increased neutrophils at 93.5%, hemoglobin 14.0 and hematocrit of 41.7 and platelets of 300. Has a PT of 11.3, INR 1.0 and a PTT of 30. His electrolytes are within normal range with a CO of 18 and has an elevated blood sugar of 440. His calculated anion gap of 23. A VBG was obtained finding a pH of 7.34 and bicarb of 19. He has a total bilirubin of 0.6, AST of 19, ALT of 15, alkaline phosphatase 148. His troponin is found to be 0.044. Procalcitonin is requested and found to be 0.13. Urine tox screen is positive for oxycodone and marijuana. In the ER the patient received 4 L of IV fluid, Reglan 10 mg, Toradol 30 mg and regular insulin 5 units. The patient is admitted to the hospital for cyclic nausea vomiting. At time encounter is found to also have chest pain and elevated troponin which is further discussed below in assessment plan. Patient History Medical History Back pain (Acute) Depression (Acute) Diabetes (Acute) Diabetic peripheral neuropathy associated with type 2 diabetes mellitus (Acute) Facet arthropathy, lumbosacral (Acute) Herniated nucleus pulposus, L4-5 (Acute) Hyperlipidemia (Acute) Hypertension (Acute) Morbid obesity due to excess calories (Acute) Ventral hernia (Acute) Surgical History (Updated 12/21/19 @ 04:20 by BRIANNA Koch) History of appendectomy (Acute) History of cataract surgery (Acute) Family & Social History Family History (Updated 12/21/19 @ 04:21 by BRIANNA Koch) Father Alcoholism Cancer Mother Diabetes mellitus Social History: household members none Prior Living Arrangements House lives independently Yes Safety & Behavioral: Feels Safe in Current Yes Environment Been Physically Hurt or No Threatened By a Person Suicidal Ideation Description None Suicide Plan Description No Plan Tobacco & Substance use: Smoking Status Former smoker alcohol intake never alcohol intake frequency 0-2 drinks per day Substance Use Type marijuana Meds Home Medications and Allergies Home Medications Medication Instructions Recorded Confirmed Type Basaglar KwikPen U-100 Insulin 100 unit SQ QDAY #0 06/21/17 12/20/19 History amlodipine 10 mg PO DAILY #0 06/21/17 12/20/19 History atorvastatin [Lipitor] 40 mg PO DAILY #0 06/21/17 12/20/19 History lisinopril 40 mg PO QDAY #0 06/21/17 12/20/19 History omeprazole 20 mg PO QDAY #0 06/21/17 12/20/19 History clonidine HCl 0.1 mg tablet 0.1 mg PO BID 07/13/19 12/20/19 History gabapentin 600 mg tablet 600 mg PO TID #90 tab 07/13/19 12/20/19 Rx dicyclomine 10 - 20 mg PO TID #14 cap 12/16/19 12/20/19 Rx promethazine 12.5 - 25 mg PO Q6H PRN #10 tab 12/16/19 12/20/19 Rx metoclopramide HCl 10 mg PO Q6H #10 tab 12/20/19 Rx Allergies Allergy/AdvReac Type Severity Reaction Status Date / Time No Known Drug Allergies Allergy Verified 12/16/19 11:40 Review of Systems Review of Systems ROS: Yes All systems reviewed with the patient and are negative except as othe rwise documented Exam Vital Signs (past 8 hours): - 12/20/19 16:31 12/20/19 17:16 12/20/19 17:18 Temperature Pulse Rate 103 H 100 H 98 H Respiratory Rate 12 19 Blood Pressure 186/77 H Pulse Oximetry 99 100 100 12/20/19 17:30 12/20/19 18:00 12/20/19 18:30 Temperature Pulse Rate 101 H 98 H 98 H Respiratory Rate 18 14 14 Blood Pressure 182/81 H 162/74 H 175/79 H Pulse Oximetry 98 96 99 12/20/19 19:00 12/20/19 19:01 12/20/19 19:30 Temperature Pulse Rate 97 H 97 H 99 H Respiratory Rate 11 L 11 L 20 Blood Pressure 160/76 H 158/79 H Pulse Oximetry 12/20/19 20:00 12/20/19 20:30 12/20/19 21:38 Temperature 98.3 F Pulse Rate 96 H 102 H 101 H Respiratory Rate 11 L 14 15 Blood Pressure 157/71 H 168/82 H 149/75 H Pulse Oximetry 100 12/20/19 22:32 12/20/19 22:57 12/20/19 23:04 Temperature Pulse Rate 96 H 98 H Respiratory Rate Blood Pressure 136/72 115/57 L Pulse Oximetry 99 Oxygen Delivery Method Room Air Oxygen Flow Rate 0 Narrative Exam Narrative: GENERAL APPEARANCE: well developed, well nourished, in no acute distress. HEENT: Normocephalic, PERRLA, conjunctiva clear, EOMs intact without nystagmus, no sinus tenderness to percussion, no rhinorrhea, mucous membranes are moist and pink without lesions or exudate. NECK/THYROID: neck supple, no JVD, no carotid bruit, no thyromegaly, trachea midline. LYMPH NODES: no cervical or supraclavicular lymphadenopathy. SKIN: [place], warm and dry, no visible lesions, rashes, ulcerations or petechiae. HEART: Tachycardic rate with regular rhythm, S1-S2, no murmur, no rubs or gallops, brisk capillary refill, trace edema LUNGS: clear to auscultation bilaterally, no coarseness crackles or wheezing, no cough present CHEST: Symmetrical movement, no accessory muscle use, good tidal volume. ABDOMEN: Soft, obese, tender palpation over epigastrium in all 4 quadrants without organomegaly, hyperactive bowel tones. EXTREMITIES: moves all extremities, strength is 5/5 and symmetrical, no deformities or joint effusions. NEUROLOGIC: AAO x4, no focal neurologic deficits, cranial nerves II-XII grossly intact, sensation intact to light touch, hearing grossly normal to speech. PSYCH: Patient flat affect frustrated with questioning, cooperative with exam, a Mcgee stable Objective Labs Result Diagrams: 12/21/19 02:05 12/21/19 02:05 Labs: Laboratory Results - last 24 hr 12/20/19 12/20/19 12/20/19 16:12 16:12 16:12 WBC 16.8 H RBC 5.04 Hgb 14.0 Hct 41.7 MCV 82.8 MCH 27.8 MCHC 33.5 RDW 13.3 Plt Count 300 Neut % (Auto) 93.5 H Lymph % (Auto) 3.3 L [place] % (Auto) 2.7 L Eos % (Auto) 0.0 L Baso % (Auto) 0.5 Neut # (Auto) 05217 H Lymph # (Auto) 600 L [place] # (Auto) 500 Eos # (Auto) 0 Baso # (Auto) 100 PT 11.3 INR 1.0 APTT 30 VBG pH VBG pCO2 VBG pO2 VBG HCO3 VBG Total CO2 VBG O2 Saturation VBG Base Excess Sodium 134 L Potassium 4.0 Chloride 93 L Carbon Dioxide 18 L BUN 22 H Creatinine 1.69 H Estimated GFR 42.7 L BUN/Creatinine Ratio 13.0 Glucose 440 H Calcium 9.8 Phosphorus Magnesium Total Bilirubin 0.6 AST 19 ALT 15 Alkaline Phosphatase 148 H Total Creatine Kinase CK-MB (CK-2) CK-MB (CK-2) Rel Index Troponin I Total Protein 7.2 Albumin 4.2 Globulin 3.0 Albumin/Globulin Ratio 1.4 Lipase 39 Procalcitonin Urine Color Urine Appearance Urine pH Ur Specific [place] Urine Protein Urine Glucose (UA) Urine Ketones Urine Occult Blood Urine Nitrate Urine Bilirubin Urine Urobilinogen Ur Leukocyte Esterase Urine RBC Urine WBC Ur Squamous Epith Cells Urine Bacteria Ur Culture Indicated? U Opiates 300ng/mL cut Ur Oxycodone Screen Urine Methadone Screen Ur Barbiturates Screen U Tricyclic Antidepress Ur Phencyclidine Scrn Ur Amphetamines Screen U Methamphetamines Scrn Ur MDMA Scrn (Ecstasy) U Benzodiazepines Scrn Urine Cocaine Screen U Marijuana (THC) Screen COVID-19 PCR 12/20/19 12/20/19 12/20/19 16:12 16:12 16:12 WBC RBC Hgb Hct MCV MCH MCHC RDW Plt Count Neut % (Auto) Lymph % (Auto) [place] % (Auto) Eos % (Auto) Baso % (Auto) Neut # (Auto) Lymph # (Auto) [place] # (Auto) Eos # (Auto) Baso # (Auto) PT INR APTT VBG pH VBG pCO2 VBG pO2 VBG HCO3 VBG Total CO2 VBG O2 Saturation VBG Base Excess Sodium Potassium Chloride Carbon Dioxide BUN Creatinine Estimated GFR BUN/Creatinine Ratio Glucose Calcium Phosphorus Magnesium 2.1 Total Bilirubin AST ALT Alkaline Phosphatase Total Creatine Kinase 88 CK-MB (CK-2) TNP CK-MB (CK-2) Rel Index TNP Troponin I 0.044 H Total Protein Albumin Globulin Albumin/Globulin Ratio Lipase Procalcitonin 0.13 Urine Color Urine Appearance Urine pH Ur Specific [place] Urine Protein Urine Glucose (UA) Urine Ketones Urine Occult Blood Urine Nitrate Urine Bilirubin Urine Urobilinogen Ur Leukocyte Esterase Urine RBC Urine WBC Ur Squamous Epith Cells Urine Bacteria Ur Culture Indicated? U Opiates 300ng/mL cut Ur Oxycodone Screen Urine Methadone Screen Ur Barbiturates Screen U Tricyclic Antidepress Ur Phencyclidine Scrn Ur Amphetamines Screen U Methamphetamines Scrn Ur MDMA Scrn (Ecstasy) U Benzodiazepines Scrn Urine Cocaine Screen U Marijuana (THC) Screen COVID-19 PCR 12/20/19 12/20/19 12/20/19 16:12 16:13 16:13 WBC RBC Hgb Hct MCV MCH MCHC RDW Plt Count Neut % (Auto) Lymph % (Auto) [place] % (Auto) Eos % (Auto) Baso % (Auto) Neut # (Auto) Lymph # (Auto) [place] # (Auto) Eos # (Auto) Baso # (Auto) PT INR APTT VBG pH VBG pCO2 VBG pO2 VBG HCO3 VBG Total CO2 VBG O2 Saturation VBG Base Excess Sodium Potassium Chloride Carbon Dioxide BUN Creatinine Estimated GFR BUN/Creatinine Ratio Glucose Calcium Phosphorus 4.7 H Magnesium Total Bilirubin AST ALT Alkaline Phosphatase Total Creatine Kinase CK-MB (CK-2) CK-MB (CK-2) Rel Index Troponin I Total Protein Albumin Globulin Albumin/Globulin Ratio Lipase Procalcitonin Urine Color Yellow Urine Appearance Clear Urine pH 5.0 Ur Specific [place] 1.020 Urine Protein 3+ H Urine Glucose (UA) 2+ H Urine Ketones 3+ H Urine Occult Blood 2+ H Urine Nitrate Negative Urine Bilirubin Negative Urine Urobilinogen 0.2 Ur Leukocyte Esterase Negative Urine RBC 0-1/hpf D Urine WBC 0-1/hpf Ur Squamous Epith Cells None seen Urine Bacteria None seen Ur Culture Indicated? Cult not indicated U Opiates 300ng/mL cut Negative Ur Oxycodone Screen Positive H Urine Methadone Screen Negative Ur Barbiturates Screen Negative U Tricyclic Antidepress Negative Ur Phencyclidine Scrn Negative Ur Amphetamines Screen Negative U Methamphetamines Scrn Negative Ur MDMA Scrn (Ecstasy) Negative U Benzodiazepines Scrn Negative Urine Cocaine Screen Negative U Marijuana (THC) Screen Positive H COVID-19 PCR 12/20/19 12/20/19 12/20/19 19:46 20:36 22:05 WBC RBC Hgb Hct MCV MCH MCHC RDW Plt Count Neut % (Auto) Lymph % (Auto) [place] % (Auto) Eos % (Auto) Baso % (Auto) Neut # (Auto) Lymph # (Auto) [place] # (Auto) Eos # (Auto) Baso # (Auto) PT INR APTT VBG pH 7.34 VBG pCO2 36.0 L VBG pO2 25 L VBG HCO3 19 L VBG Total CO2 20 L VBG O2 Saturation 41 L VBG Base Excess -7.0 L Sodium Potassium Chloride Carbon Dioxide BUN Creatinine Estimated GFR BUN/Creatinine Ratio Glucose Calcium Phosphorus Magnesium Total Bilirubin AST ALT Alkaline Phosphatase Total Creatine Kinase CK-MB (CK-2) CK-MB (CK-2) Rel Index Troponin I 0.081 H Total Protein Albumin Globulin Albumin/Globulin Ratio Lipase Procalcitonin Urine Color Urine Appearance Urine pH Ur Specific [place] Urine Protein Urine Glucose (UA) Urine Ketones Urine Occult Blood Urine Nitrate Urine Bilirubin Urine Urobilinogen Ur Leukocyte Esterase Urine RBC Urine WBC Ur Squamous Epith Cells Urine Bacteria Ur Culture Indicated? U Opiates 300ng/mL cut Ur Oxycodone Screen Urine Methadone Screen Ur Barbiturates Screen U Tricyclic Antidepress Ur Phencyclidine Scrn Ur Amphetamines Screen U Methamphetamines Scrn Ur MDMA Scrn (Ecstasy) U Benzodiazepines Scrn Urine Cocaine Screen U Marijuana (THC) Screen COVID-19 PCR Negative Assessment & Plan Assessment & Plan narrative: This is a 54-year-old male patient to return to the hospital for the 3rd time with cyclic nausea vomiting. Patient is noted to be positive for cannabis use but also found to have elevated troponin and chest pain in the setting of CKD and hyperglycemia with anion gap acidosis. It is notable that the patient appears systolic electively disclose history to different providers. 1. Cyclic nausea vomiting, acute, present on admission, active -this is the patient's 3rd visit to the ER for nausea vomiting. The patient continues to have nausea and emesis which is controlled with Zofran and Reglan in the emergency department. -ordered Zofran 4 mg IV every 6 hours as needed for nausea. -ordered Reglan 10 mg every 8 hours as needed for nausea. -ordered Protonix 40 mg daily. -patient will be NPO, normal saline 100 cc/hour. -procalcitonin is 0 0.13, will recheck procalcitonin the morning and ordered GI PCR panel. 2. Left chest pain, acute, present on admission, active -Patient with left chest pain that has been present since the onset of his symptoms. He describes the nausea vomiting is beginning 1st and developing chest pain that he thought was secondary to his vomiting. -patient's pain is described as a dull ache nonradiating and pleuritic in character. -the patient was found to have an elevated troponin at 0.35 during his ER visit of 12/15 along with an elevated pro BNP of 1520 in the setting of chronic kidney disease stage 3. -patient's troponin today is 0. 044. EKG which revealed tachycardia 106 with left ventricular hypertrophy with no evidence of ischemia or infarct. -will recheck troponin. Breath sounds clear will recheck a pro BNP with morning labs. 3. Diabetes type 2, insulin-dependent with hyperglycemia, anion gap acidosis, present on admission, active -the patient is found to be mildly acidotic with a CO of 18, a bicarb of 19 on VBG and an anion gap of 23. The patient received 4 L of IV fluid in the emerg ency department and 5 units of regular insulin. -patient has a history diabetes and takes Levemir 70 units twice daily with sliding scale NovoLog, the patient reports he has not been taking his insulin because he has not been eating. -ordered Levemir 70 units twice daily. -ordered fingersticks blood sugars every 6 hours with correctional insulin medium range. -patient is presently NPO. -will obtain a magnesium and phosphate. 4. Urinary retention, acute, present on admission, stable -patient has indwelling Mcgee catheter placed for urinary retention on prior visit to the ER in the patient is to follow-up with Dr. Meng. -catheter is draining clear yellow urine, urinalysis is positive for protein glucose and ketones and blood and negative for leukocyte esterase, nitrites or WBCs. -ordered tamsulosin 0.4 mg daily 4. Chronic pain, lumbar spine, present on admission, active. -the patient is being followed by pain management in [place]. -will continue patient's home regimen of gap event 600 mg t.i.d.. -ordered oxycodone 5-10 mg every 4 hours as needed for pain. 5. Constipation, stable -patient with previous complaints of constipation ordered Dulcolax suppository daily as needed and MiraLax 17 g daily as needed. VTE prophylaxis: SCDs, enoxaparin IV fluid: Normal saline 100 cc/hour Diet: NPO Code status: FULL CODE, patient's ex- Eulalia is a surrogate decision maker. The patient is admitted to the hospital due to the severity of his symptoms requiring further evaluation and workup along with further evaluation of chest pain, monitoring and serial labs. The patient is admitted as observation with expected length of stay to be less than 2 midnights. COVID-19 COVID-19 status: Negative Result date/Date tested (Pos, Neg/Pending): 12/20/19 Scores GCS [place]anna coma scale eye opening: Spontaneous [place] coma scale verbal response: Orientated [place] coma scale motor response: Obey commands [place] coma scale total score: 15 Quality VTE Deep Vein Thrombosis/Pulmonary Embolism Present on Admission: No
[2019-12-21] VITALS (17 sets, daily range): BP systolic 100–145; BP diastolic 52–91; PULSE 73–97; RESP 14–18; TEMP 36.1–37.2; O2SAT 90–100
[2019-12-21] MEDS: NITROGLYCERIN OINT 1 INCH/GM OINT...G. TOP (00:15)
--- NOTE | 2019-12-21 01:42 | PC.NURSE ---
Admission/Shift Note: Arrived on floor @ 2200 accompanied by ED WATER SERVICE DISPATCHER. Transferred to inpatient bed via slider board. AxOx3, can make needs known. Hx of falls, sorensen present on admission from previous admission d/t urinary retention. During provider assessment, patient c/o chest pain, had elevated troponin. Stat EKG ordered and 1 tab sublingual nitro given. 1 inch nitropaste applied at 0015 to left upper chest. Prior to nitro, elevated BP, post administration BP noted to be 100/69, provider notified, catapress was held for low BP. Pt denied nausea during admission assessment and follow up assessment, multiple modalities per MAR for management. Tele: ST with BBB, chest pain resolved per patient. High fall risk d/t self reported profound weakness and hx of falls. Bed alarm on and functioning, call light in reach and demonstrated use.
[2019-12-21 02:16] LABS: Add Manual Diff / Slide Review NO; Basophils Absolute Auto 100 /uL (0-100); Basophils Percent Auto 0.9 % (0-2); Eosinophils Absolute Auto 0 /uL (0-450); Eosinophils Percent Auto 0.1 % (2-4); Hematocrit 35.5 % (41-53); Hemoglobin 11.8 g/dL (13.5-17.5); Lymphocytes Absolute Auto 1500 /uL (1100-4500); Lymphocytes Percent Auto 9.8 % (25-40); Mean Corpuscular HGB Conc 33.2 % (30-36); Mean Corpuscular Hemoglobin 27.3 PG (26-34); Mean Corpuscular Volume 82.3 fL (80-100); Monocytes Absolute Auto 1200 /uL (0-900); Monocytes Percent Auto 8.1 % (3-14); Neutrophils Absolute Auto 12300 /uL (1500-7000); Neutrophils Percent Auto 81.1 % (50-75); Platelet Count 281 X10^3/uL (150-400); Red Blood Cell Count 4.32 X10^6/uL (4.5-5.9); Red Cell Distribution Width 13.9 % (11.6-14.8); White Blood Cell Count 15.2 X10^3/uL (4.5-11.0)
[2019-12-21] MEDS: OXYCODONE IR 5 MG TABLET PO (02:21)
[2019-12-21 02:25] LABS: BUN Creatinine Ratio 13.3 (6-22); Blood Urea Nitrogen 23 mg/dL (9-20); Calcium 8.8 mg/dL (8.4-10.2); Carbon Dioxide 19 mmol/L (22-32); Chloride 101 mmol/L (98-107); Estimated Glomerular Filt Rate 41.5 mL/min (>60); Glucose 270 mg/dL (70-100); HEMOLYSIS < 15 (0-50); Potassium 3.9 mmol/L (3.4-5.1); Sodium 134 mmol/L (137-145)
[2019-12-21 02:37] LABS: Troponin I 0.104 ng/mL (0.01-0.034)
[2019-12-21 03:38] LABS: Creatine Kinase 79 U/L (55-170)
[2019-12-21] MEDS: INSULIN ASPART 100 UNIT/ML INSULN PEN SUBCUT ×2 (04:51→13:02)
[2019-12-21 07:25] LABS: Creatine Kinase 73 U/L (55-170)
[2019-12-21 07:37] LABS: NT-proBNP (BNP-Adult 18+) 992 pg/mL (<125)
[2019-12-21 07:39] LABS: Troponin I 0.102 ng/mL (0.01-0.034)
[2019-12-21 07:48] LABS: Hemoglobin A1C% w Est Avg Glu 9.6 % (4.0-6.0)
[2019-12-21] MEDS: SODIUM CHLORIDE 0.9% 1,000 ML 100 ML IV ×2 (09:00→19:00)
[2019-12-21] MEDS: DEXTROSE 50 % IN WATER 25 GM/50 ML SYRINGE IV (10:08)
[2019-12-21] MEDS: PANTOPRAZOLE 40 MG VIAL IV (10:21)
[2019-12-21] MEDS: ENOXAPARIN 40 MG/0.4 ML SYRINGE SUBCUT (10:21)
[2019-12-21] MEDS: INSULIN DETEMIR 100 UNIT/ML INSULN.PEN 70 UNIT SUBCUT ×2 (10:47→21:04)
[2019-12-21] MEDS: METOCLOPRAMIDE 10 MG/2 ML INJ IV (10:57)
--- NOTE | 2019-12-21 10:58 | DIET.PN ---
Dietary Progress Note Assessment: 54y M admitted for cyclic nausea/vomiting referred to nutrition for significant weight loss. Pt has 15% unintentional weight loss in 2mo (severe), stopped taking Levemir and Novolog 2 w ago as has not been tolerating POs since then, admit BG 440. Pts ex-spouse reports significant decline in mobility since August 2019. Pt has CKD 3 c eGFR 42.7 and Cr 1.69, concerns over elevated phos 4.7, pt reports not being able to tolerate jello and broth let alone leavened baked goods and dairy. HT: 177.8cm WT: 97.5kg UBW: 114.7kg (September 2019 per [facility] records) BMI: 30.8 (down from 36.3 since September 2019) Labs: eGFR 42.7 L, Cr 1.69 H, phos 4.7 H, BG on admit 440 H, Trop1 0.044 H, Alk Phos 148 H MNA: 5 malnourished Damon: 16 @ risk for skin breakdown Nutrition Diagnosis: Severe Acute PCM r/t uncontrolled N/V aeb 15% unintentional weight loss in 2 mo (severe), BMI drop of 6 points in 2mo, 14d of uncontrolled N/V leading to minimal POs (<10% EER, severe), weakness c significantly reduced mobility since August 2019. Interventions: 1. Recc ONS Nepro bid once diet order advanced to support PCM in renal friendly formula 2. Recc limiting dairy to one serving per day while phosphorus is elevated Diet Order: NPO pending change to HH/CCD EER: 78g PRO (0.8g/kg per renal and PCM, adjust per renal lab trends), 1800kcal Monitoring/Evaluations: diet advancement, POs, if POs <75% EERs start ONS Nepro bid, renal labs
--- NOTE | 2019-12-21 11:40 | DI.ECHO.S_ITS ---
Echocardiogram Report + + :Name: PEARL SLATER Study Date: 12/21/2019 Height: 70 in : :Hospital Weight: 214 lb : : Gender: Male BSA: 2.1 m2 : :: 1965 Age: 54 yrs BP: 131/72 mmHg: :Reason For Study: CHEST PAIN, POSITIVE TROPONINS : :Ordering Physician: : :LOLITA CASTRO Performed By: Betty Cm : :Referring: TYRON MISHRA : + + Interpretation Summary Left ventricular wall thickness is moderately increased. The left ventricular cavity is small. The ejection fraction is estimated to be 55-60%. Left ventricular global longitudinal strain average is -12.9%. Diastolic function could not be accurately assessed due to contradictory data. There are no focal wall motion abnormalities. Septal motion is consistent with conduction abnormality. The right ventricle is normal in size and function. Both atria are normal in size. There is no significant valvular heart disease. The ascending aorta is mildly enlarged. Procedure: A two-dimensional transthoracic echocardiogram with color flow and Doppler was performed. The study quality was technically adequate. The patient was in sinus rhythm with heart rates between 79-81 bpm during the exam. Left Ventricle: The left ventricular cavity is small. The estimated left ventricular end diastolic volume is 60 ml. Left ventricular wall thickness is moderately increased. The ejection fraction is estimated to be 55-60%. Left ventricular global longitudinal strain average is -12.9%. There are no focal wall motion abnormalities. Septal motion is consistent with conduction abnormality. Diastolic function could not be accurately assessed due to contradictory data. Right Ventricle: The right ventricle is normal in size and function. Atria: Both atria are normal in size. There is no Doppler evidence for an interatrial shunt. Mitral Valve: There is mild mitral annular calcification. The mitral valve is normal in structure and function. There is no mitral regurgitation noted. Aortic Valve: There is mild aortic valve sclerosis. There is discrete nodular thickening of the left coronary cusp. There is no aortic valve stenosis. No aortic regurgitation is present. Tricuspid Valve: The tricuspid valve is normal in structure and function. Pulmonary artery pressures cannot be estimated because of the lack of a measurable TR jet velocity but the IVC suggests a CVP of around 3 mmHg. Pulmonic Valve: The pulmonic valve leaflets are thin and pliable; valve motion is normal. There is no pulmonic valvular regurgitation. There is no significant valvular heart disease. Great Vessels: The aortic root is normal size. The ascending aorta is mildly enlarged. The IVC is of normal diameter and collapses greater than 50% with a sniff. This suggests a low right atrial pressure of 3 mm Hg. Pericardium/ Pleura There is no pericardial effusion. There is no pleural effusion. MMode/2D Measurements & Calculations LVIDd: 3.7 cm LVOT diam: 2.3 cm LVIDs: 2.4 cm Ao root diam: 3.6 cm FS: 36.1 % asc Aorta Diam: 3.4 cm IVSd: 1.4 cm Ao Arch Diam (Prox Trans): 3.4 cm LVPWd: 1.5 cm LV ivory. diameter/BSA (cm/m^2): 1.7 LV sys. diameter/BSA (cm/m^2): 1.1 LA A2 area: 18.3 cm2 RA long axis: 3.4 cm LA A4 area: 13.7 cm2 RA area: 9.6 cm2 LA length (vol): 4.2 cm RA vol: 23.0 ml LA vol: 50.3 ml RA : 10.7 ml/m2 LA vol index: 23.4 ml/m2 IVC diam: 1.1 cm RVD1 (basal): 2.7 cm TAPSE: 1.8 cm Doppler Measurements & Calculations Ao V2 max: 162.1 cm/sec LVOT Max Jonathan: 92.9 cm/sec Ao V2 mean: 108.7 cm/sec LV V1 max P.5 mmHg Ao max P.5 mmHg LV V1 VTI: 14.9 cm Ao mean P.4 mmHg ANGELY(I,D): 2.6 cm2 Ao V2 VTI: 23.0 cm ANGELY(V,D): 2.3 cm2 sev ratio: 0.65 ANGELY indexed to BSA (cm^2/m^2): 1.2 MV E max jonathan: 80.4 cm/sec PA V2 max: 114.2 cm/sec MV A max jonathan: 110.0 cm/sec PA V2 mean: 75.7 cm/sec MV E/A: 0.73 PA mean P.7 mmHg Med Peak E' Jonathan: 3.1 cm/sec PA pr(Accel): 32.8 mmHg E/E' med: 25.6 Lat Peak E' Jonathan: 6.9 cm/sec E/E' lat: 11.6 E/e' average: 18.6 MV dec time: 0.26 sec SV(LVOT): 60.0 ml Reading Physician:03:48 PM
[2019-12-21] MEDS: cloNIDine 0.1 MG TABLET PO ×2 (13:00→21:03)
[2019-12-21] MEDS: GABAPENTIN 600 MG TABLET PO ×2 (13:00→21:03)
[2019-12-21] MEDS: AMLODIPINE 5 MG TABLET 10 MG PO (13:00)
[2019-12-21] MEDS: lisinopriL 20 MG TABLET 40 MG PO (13:00)
[2019-12-21] MEDS: TAMSULOSIN 0.4 MG CAPSULE PO (13:00)
[2019-12-21] MEDS: ACETAMINOPHEN 325 MG TABLET 975 MG PO (13:01)
--- NOTE | 2019-12-21 14:23 | DI.NM.S_ITS ---
PROCEDURE: NM GASTRIC EMPTYING STUDY RADIOPHARMACEUTICAL: 1.0 mCi Tc-99m sulfur colloid in an egg sandwich. INDICATIONS: N/V, Gastroparesis TECHNIQUE: A Tc-99m labeled sulfur colloid labeled egg sandwich or oatmeal was served to the patient. Anterior and posterior planar images of the abdomen were obtained at 0 minutes and 30 minutes, then at hourly intervals up to 4 hours. The patient was upright and ambulating during the interval. COMPARISON: None. FINDINGS: The stomach has normal size, morphology, and position. There is normal emptying of solid gastric contents from the stomach by visual inspection. No gastroesophageal reflux is visualized. The percentage of tracer retained at specific time points are as follows: Time point Percent gastric retention Normal range 30 minutes 97% 70% or more 1 hour 84% 30% to 90% 2 hours 67% 60% or less 3 hours 46% 30% or less 4 hours 31% 10% or less IMPRESSION: Abnormal prolonged gastric retention of ingested isotope, seen at 2, 3 and 4 hours after onset of the examination. The findings are consistent with gastroparesis. Dictated by: Chevy Montenegro M.D. on 12/22/2019 at 15:49 Approved by: Chevy Montenegro M.D. on 12/22/2019 at 15:51
--- NOTE | 2019-12-21 14:27 | P.PN_ITS ---
Subjective Subjective Date Patient Seen: 12/21/19 Interval history: Drew Hartmann is a 54-year-old male with a past medical history significant for hypertension, hyperlipidemia, diabetes mellitus type 2, insulin using, with complication of diabetic peripheral neuropathy and chronic kidney disease stage 3, recent constipation with urinary retention requiring indwelling Mcgee cathete r last week placed in the ED and chronic low back pain who presented to the ED for progressive worsening cyclic nausea and vomiting over the last 3 days. The patient was seen early this morning and he was very slow to respond and reported he didn't feel right. The patient's blood glucose was 89 and he was symptomatic with nausea and slowed mentation. His mentation improved with glucose. He tolerated lunch but endorsed mild nausea afterward. He complains of mid abdominal pain and early satiety. Patient likely has gastroparesis due to uncontrolled diabetes and will pursue a nuclear medicine gastric emptying study tomorrow. You previously had sharp left-sided chest pain which resolved with improvement of nausea and vomiting. He has no other complaints and denies headache, chest pain, shortness of breath, fever, chills, dysuria, diarrhea or constipation. He is voiding via Mcgee catheter which will be removed today as patient previously had urinary retention due to constipation. Plan to remove Mcgee catheter and attempt a voiding trial. Patient has not had BM since admission and a bowel regimen has been implemented. Patient is up ambulating with assistance. Exam Vital Signs (past 8 hours): - 12/21/19 08:24 12/21/19 09:50 12/21/19 12:19 Temperature 97.6 F 97.7 F Pulse Rate 93 H 79 Respiratory Rate 18 14 Blood Pressure 109/53 L 136/66 Pulse Oximetry 95 100 90 L 12/21/19 13:00 Temperature Pulse Rate Respiratory Rate Blood Pressure 136/66 Pulse Oximetry Oxygen Delivery Method Room Air Oxygen Flow Rate 0 Narrative Exam Narrative: General: Older gentleman sitting in bed and in no acute distress, appears older than stated age, well-developed, well-nourished, appropriately interactive. HEENT: Normocephalic, atraumatic. External ears without defect. Pupils equal, round, and reactive to light. Anicteric sclerae, moist conjunctivae, and no lid lag. Oropharynx free of erythema and cobble stoning with moist mucosa. Neck: Supple with full range of motion. No lymphadenopathy or thyromegaly. Cardiovascular: Regular rate and rhythm without murmurs, rubs, or gallops appreciated. Pulmonary: Clear to auscultation bilaterally without crackles, wheezes, or rhonchi. Normal respiratory effort with no use of accessory muscles. Abdomen: Soft, bowel sounds hypoactive, mild pain to palpation in mid abdomen, nondistended. No hepatosplenomegaly or masses appreciated. Extremities: No clubbing, cyanosis, or edema. Skin: Normal temperature, turgor, and texture; no rash, ulcers, or subcutaneous nodules appreciated. Neurological: Cranial nerves grossly intact. Psychiatric: Depressed mood and flat affect. Alert and oriented to person, p lace, and time. Objective Labs Result Diagrams: 12/22/19 04:50 12/22/19 04:50 Labs: Laboratory Results - last 24 hr 12/20/19 12/20/19 12/20/19 16:12 16:12 16:12 WBC 16.8 H RBC 5.04 Hgb 14.0 Hct 41.7 MCV 82.8 MCH 27.8 MCHC 33.5 RDW 13.3 Plt Count 300 Neut % (Auto) 93.5 H Lymph % (Auto) 3.3 L [place] % (Auto) 2.7 L Eos % (Auto) 0.0 L Baso % (Auto) 0.5 Neut # (Auto) 46781 H Lymph # (Auto) 600 L [place] # (Auto) 500 Eos # (Auto) 0 Baso # (Auto) 100 PT 11.3 INR 1.0 APTT 30 VBG pH VBG pCO2 VBG pO2 VBG HCO3 VBG Total CO2 VBG O2 Saturation VBG Base Excess Sodium 134 L Potassium 4.0 Chloride 93 L Carbon Dioxide 18 L BUN 22 H Creatinine 1.69 H Estimated GFR 42.7 L BUN/Creatinine Ratio 13.0 Glucose 440 H Hemoglobin A1c Calcium 9.8 Phosphorus Magnesium Total Bilirubin 0.6 AST 19 ALT 15 Alkaline Phosphatase 148 H Total Creatine Kinase CK-MB (CK-2) CK-MB (CK-2) Rel Index Troponin I NT-Pro-B Natriuret Pep Total Protein 7.2 Albumin 4.2 Globulin 3.0 Albumin/Globulin Ratio 1.4 Lipase 39 Procalcitonin Urine Color Urine Appearance Urine pH Ur Specific [place] Urine Protein Urine Glucose (UA) Urine Ketones Urine Occult Blood Urine Nitrate Urine Bilirubin Urine Urobilinogen Ur Leukocyte Esterase Urine RBC Urine WBC Ur Squamous Epith Cells Urine Bacteria Ur Culture Indicated? U Opiates 300ng/mL cut Ur Oxycodone Screen Urine Methadone Screen Ur Barbiturates Screen U Tricyclic Antidepress Ur Phencyclidine Scrn Ur Amphetamines Screen U Methamphetamines Scrn Ur MDMA Scrn (Ecstasy) U Benzodiazepines Scrn Urine Cocaine Screen U Marijuana (THC) Screen COVID-19 PCR 12/20/19 12/20/19 12/20/19 16:12 16:12 16:12 WBC RBC Hgb Hct MCV MCH MCHC RDW Plt Count Neut % (Auto) Lymph % (Auto) [place] % (Auto) Eos % (Auto) Baso % (Auto) Neut # (Auto) Lymph # (Auto) [place] # (Auto) Eos # (Auto) Baso # (Auto) PT INR APTT VBG pH VBG pCO2 VBG pO2 VBG HCO3 VBG Total CO2 VBG O2 Saturation VBG Base Excess Sodium Potassium Chloride Carbon Dioxide BUN Creatinine Estimated GFR BUN/Creatinine Ratio Glucose Hemoglobin A1c Calcium Phosphorus Magnesium 2.1 Total Bilirubin AST ALT Alkaline Phosphatase Total Creatine Kinase 88 CK-MB (CK-2) TNP CK-MB (CK-2) Rel Index TNP Troponin I 0.044 H NT-Pro-B Natriuret Pep Total Protein Albumin Globulin Albumin/Globulin Ratio Lipase Procalcitonin 0.13 Urine Color Urine Appearance Urine pH Ur Specific [place] Urine Protein Urine Glucose (UA) Urine Ketones Urine Occult Blood Urine Nitrate Urine Bilirubin Urine Urobilinogen Ur Leukocyte Esterase Urine RBC Urine WBC Ur Squamous Epith Cells Urine Bacteria Ur Culture Indicated? U Opiates 300ng/mL cut Ur Oxycodone Screen Urine Methadone Screen Ur Barbiturates Screen U Tricyclic Antidepress Ur Phencyclidine Scrn Ur Amphetamines Screen U Methamphetamines Scrn Ur MDMA Scrn (Ecstasy) U Benzodiazepines Scrn Urine Cocaine Screen U Marijuana (THC) Screen COVID-19 PCR 12/20/19 12/20/19 12/20/19 16:12 16:13 16:13 WBC RBC Hgb Hct MCV MCH MCHC RDW Plt Count Neut % (Auto) Lymph % (Auto) [place] % (Auto) Eos % (Auto) Baso % (Auto) Neut # (Auto) Lymph # (Auto) [place] # (Auto) Eos # (Auto) Baso # (Auto) PT INR APTT VBG pH VBG pCO2 VBG pO2 VBG HCO3 VBG Total CO2 VBG O2 Saturation VBG Base Excess Sodium Potassium Chloride Carbon Dioxide BUN Creatinine Estimated GFR BUN/Creatinine Ratio Glucose Hemoglobin A1c Calcium Phosphorus 4.7 H Magnesium Total Bilirubin AST ALT Alkaline Phosphatase Total Creatine Kinase CK-MB (CK-2) CK-MB (CK-2) Rel Index Troponin I NT-Pro-B Natriuret Pep Total Protein Albumin Globulin Albumin/Globulin Ratio Lipase Procalcitonin Urine Color Yellow Urine Appearance Clear Urine pH 5.0 Ur Specific [place] 1.020 Urine Protein 3+ H Urine Glucose (UA) 2+ H Urine Ketones 3+ H Urine Occult Blood 2+ H Urine Nitrate Negative Urine Bilirubin Negative Urine Urobilinogen 0.2 Ur Leukocyte Esterase Negative Urine RBC 0-1/hpf D Urine WBC 0-1/hpf Ur Squamous Epith Cells None seen Urine Bacteria None seen Ur Culture Indicated? Cult not indicated U Opiates 300ng/mL cut Negative Ur Oxycodone Screen Positive H Urine Methadone Screen Negative Ur Barbiturates Screen Negative U Tricyclic Antidepress Negative Ur Phencyclidine Scrn Negative Ur Amphetamines Screen Negative U Methamphetamines Scrn Negative Ur MDMA Scrn (Ecstasy) Negative U Benzodiazepines Scrn Negative Urine Cocaine Screen Negative U Marijuana (THC) Screen Positive H COVID-19 PCR 12/20/19 12/20/19 12/20/19 19:46 20:36 22:05 WBC RBC Hgb Hct MCV MCH MCHC RDW Plt Count Neut % (Auto) Lymph % (Auto) [place] % (Auto) Eos % (Auto) Baso % (Auto) Neut # (Auto) Lymph # (Auto) [place] # (Auto) Eos # (Auto) Baso # (Auto) PT INR APTT VBG pH 7.34 VBG pCO2 36.0 L VBG pO2 25 L VBG HCO3 19 L VBG Total CO2 20 L VBG O2 Saturation 41 L VBG Base Excess -7.0 L Sodium Potassium Chloride Carbon Dioxide BUN Creatinine Estimated GFR BUN/Creatinine Ratio Glucose Hemoglobin A1c Calcium Phosphorus Magnesium Total Bilirubin AST ALT Alkaline Phosphatase Total Creatine Kinase CK-MB (CK-2) CK-MB (CK-2) Rel Index Troponin I 0.081 H NT-Pro-B Natriuret Pep Total Protein Albumin Globulin Albumin/Globulin Ratio Lipase Procalcitonin Urine Color Urine Appearance Urine pH Ur Specific [place] Urine Protein Urine Glucose (UA) Urine Ketones Urine Occult Blood Urine Nitrate Urine Bilirubin Urine Urobilinogen Ur Leukocyte Esterase Urine RBC Urine WBC Ur Squamous Epith Cells Urine Bacteria Ur Culture Indicated? U Opiates 300ng/mL cut Ur Oxycodone Screen Urine Methadone Screen Ur Barbiturates Screen U Tricyclic Antidepress Ur Phencyclidine Scrn Ur Amphetamines Screen U Methamphetamines Scrn Ur MDMA Scrn (Ecstasy) U Benzodiazepines Scrn Urine Cocaine Screen U Marijuana (THC) Screen COVID-19 PCR Negative 12/21/19 12/21/19 12/21/19 02:05 02:05 02:05 WBC 15.2 H RBC 4.32 L Hgb 11.8 L Hct 35.5 L MCV 82.3 MCH 27.3 MCHC 33.2 RDW 13.9 Plt Count 281 Neut % (Auto) 81.1 H Lymph % (Auto) 9.8 L [place] % (Auto) 8.1 Eos % (Auto) 0.1 L Baso % (Auto) 0.9 Neut # (Auto) 02723 H Lymph # (Auto) 1500 [place] # (Auto) 1200 H Eos # (Auto) 0 Baso # (Auto) 100 PT INR APTT VBG pH VBG pCO2 VBG pO2 VBG HCO3 VBG Total CO2 VBG O2 Saturation VBG Base Excess Sodium 134 L Potassium 3.9 Chloride 101 Carbon Dioxide 19 L BUN 23 H Creatinine 1.73 H Estimated GFR 41.5 L BUN/Creatinine Ratio 13.3 Glucose 270 H D Hemoglobin A1c Calcium 8.8 Phosphorus Magnesium Total Bilirubin AST ALT Alkaline Phosphatase Total Creatine Kinase CK-MB (CK-2) CK-MB (CK-2) Rel Index Troponin I 0.104 H NT-Pro-B Natriuret Pep Total Protein Albumin Globulin Albumin/Globulin Ratio Lipase Procalcitonin Urine Color Urine Appearance Urine pH Ur Specific [place] Urine Protein Urine Glucose (UA) Urine Ketones Urine Occult Blood Urine Nitrate Urine Bilirubin Urine Urobilinogen Ur Leukocyte Esterase Urine RBC Urine WBC Ur Squamous Epith Cells Urine Bacteria Ur Culture Indicated? U Opiates 300ng/mL cut Ur Oxycodone Screen Urine Methadone Screen Ur Barbiturates Screen U Tricyclic Antidepress Ur Phencyclidine Scrn Ur Amphetamines Screen U Methamphetamines Scrn Ur MDMA Scrn (Ecstasy) U Benzodiazepines Scrn Urine Cocaine Screen U Marijuana (THC) Screen COVID-19 PCR 12/21/19 12/21/1912/20/20 02:05 02:05 06:34 WBC RBC Hgb Hct MCV MCH MCHC RDW Plt Count Neut % (Auto) Lymph % (Auto) [place] % (Auto) Eos % (Auto) Baso % (Auto) Neut # (Auto) Lymph # (Auto) [place] # (Auto) Eos # (Auto) Baso # (Auto) PT INR APTT VBG pH VBG pCO2 VBG pO2 VBG HCO3 VBG Total CO2 VBG O2 Saturation VBG Base Excess Sodium Potassium Chloride Carbon Dioxide BUN Creatinine Estimated GFR BUN/Creatinine Ratio Glucose Hemoglobin A1c 9.6 H Calcium Phosphorus Magnesium Total Bilirubin AST ALT Alkaline Phosphatase Total Creatine Kinase 79 73 CK-MB (CK-2) TNP TNP CK-MB (CK-2) Rel Index TNP TNP Troponin I 0.102 H NT-Pro-B Natriuret Pep Total Protein Albumin Globulin Albumin/Globulin Ratio Lipase Procalcitonin Urine Color Urine Appearance Urine pH Ur Specific [place] Urine Protein Urine Glucose (UA) Urine Ketones Urine Occult Blood Urine Nitrate Urine Bilirubin Urine Urobilinogen Ur Leukocyte Esterase Urine RBC Urine WBC Ur Squamous Epith Cells Urine Bacteria Ur Culture Indicated? U Opiates 300ng/mL cut Ur Oxycodone Screen Urine Methadone Screen Ur Barbiturates Screen U Tricyclic Antidepress Ur Phencyclidine Scrn Ur Amphetamines Screen U Methamphetamines Scrn Ur MDMA Scrn (Ecstasy) U Benzodiazepines Scrn Urine Cocaine Screen U Marijuana (THC) Screen COVID-19 PCR 12/21/19 12/21/19 06:34 06:34 WBC RBC Hgb Hct MCV MCH MCHC RDW Plt Count Neut % (Auto) Lymph % (Auto) [place] % (Auto) Eos % (Auto) Baso % (Auto) Neut # (Auto) Lymph # (Auto) [place] # (Auto) Eos # (Auto) Baso # (Auto) PT INR APTT VBG pH VBG pCO2 VBG pO2 VBG HCO3 VBG Total CO2 VBG O2 Saturation VBG Base Excess Sodium Potassium Chloride Carbon Dioxide BUN Creatinine Estimated GFR BUN/Creatinine Ratio Glucose Hemoglobin A1c Calcium Phosphorus Magnesium Total Bilirubin AST ALT Alkaline Phosphatase Total Creatine Kinase CK-MB (CK-2) CK-MB (CK-2) Rel Index Troponin I NT-Pro-B Natriuret Pep 992 H Total Protein Albumin Globulin Albumin/Globulin Ratio Lipase Procalcitonin 0.20 Urine Color Urine Appearance Urine pH Ur Specific [place] Urine Protein Urine Glucose (UA) Urine Ketones Urine Occult Blood Urine Nitrate Urine Bilirubin Urine Urobilinogen Ur Leukocyte Esterase Urine RBC Urine WBC Ur Squamous Epith Cells Urine Bacteria Ur Culture Indicated? U Opiates 300ng/mL cut Ur Oxycodone Screen Urine Methadone Screen Ur Barbiturates Screen U Tricyclic Antidepress Ur Phencyclidine Scrn Ur Amphetamines Screen U Methamphetamines Scrn Ur MDMA Scrn (Ecstasy) U Benzodiazepines Scrn Urine Cocaine Screen U Marijuana (THC) Screen COVID-19 PCR Assessment & Plan Assessment & Plan narrative: Drew Hartmann is a 54-year-old male with a past medical history significant for hypertension, hyperlipidemia, diabetes mellitus type 2, insulin using, with complication of diabetic peripheral neuropathy and chronic kidney disease stage 3, recent constipation with urinary retention requiring indwelling Mcgee catheter last week placed in the ED and chronic low back pain who presented to the ED for progressive worsening cyclic nausea and vomiting over the last 3 days. 1. Cyclic nausea and vomiting, acute on chronic, present on admission. Active. -Patient has been to the ED 3 times in the last week for nausea and vomiting. The patient continues to have nausea and emesis which is controlled with Zofran and Reglan in the emergency department. -Differential diagnosis includes gastroparesis due to uncontrolled diabetes versus hyperemesis cannabis. Discussed cannabis use and recommended abstinence definitely. -Continue Zofran 4 mg IV every 4 hours as needed for nausea and Compazine 10 mg every 6 hours as needed for nausea. Discontinued Reglan for nuclear medicine gastric emptying study tomorrow. -Continue Protonix 40 mg IV daily for GI prophylaxis. -Continue IV fluid hydration with normal saline at 100 mL/hr until adequately taking in PO intake and slowly advance diet as tolerated. 2. Diabetes type 2, insulin-dependent with hyperglycemia and anion gap metabolic acidosis, present on admission. Active. -Hemoglobin A1c 9.6% indicative of poor glycemic control and patient likely has gastroparesis as above. -Patient presented hyperglycemic with blood glucose 440 and anion gap 23 metabolic acidosis. -Received 4 L of normal saline and regular insulin 5 units in the ED. -Patient takes Levemir 70 units twice daily with NovoLog based on correctional scale which he reports he has not been taking due to inability to eat. Admitting provider continued Levemir 70 units twice daily but may need to adjust based on ability to take in PO intake. -Continue [facility] blood glucose checks and medium dose correctional scale insulin. 3. Acute Type 2 [place], present on admission. Resolved. -Patient with left sided non-radiating chest pain that developed with nausea and vomiting and resolved with improvement in nausea and vomiting. -EKG demonstrated sinus tachycardia with left ventricular hypertrophy and no evidence of acute ischemia such as ST elevation or depression. -Initial troponin elevated at 0.044 in setting of chronic kidney disease stage 3. Troponin peaked at 0.104 and is trending down now 0.102 with improvement in nausea and vomiting. No need to further trend. 4. Acute urinary retention, secondary to constipation, present on admission. Stable. -Patient recently had Mcgee catheter placed in the emergency department for urinary retention and he is to follow-up with Dr. Meng. -Plan to remove Mcgee catheter and attempt a voiding trial today. If patient continues to have urinary retention will attempt straight catheterization and if still unable to void spontaneously will replace Mcgee catheter. -Continue tamsulosin 0.4 mg daily. 5. Constipation, acute on chronic, present on admission. Active. -Patient with previous constipation on 12/14/2019 evident on abdominal series. -Continue MiraLax 17 g daily and Colace 100 mg twice daily. Ordered bisacodyl suppository as needed for persistent constipation. 6. Chronic kidney disease stage 3, present on admission. Stable. -Initial creatinine 1.69. Baseline creatinine appears to be between 1.5 and 1.7. -Continue to avoid nephrotoxic agents. -Continue IV fluid hydration as above. -Continue to monitor creatinine daily 7. Chronic lumbar back pain, chronic, present on admission. Stable. -Patient is followed by pain management in [place]. -Continue home gabapentin 600 mg 3 times daily. Code status: Full code VTE prophylaxis: Enoxaparin, SCDs Disposition: Patient likely to discharge home in 1-2 days once nuclear medicine gastric emptying study has been pursued and nausea and vomiting have improved. Quality VTE Deep Vein Thrombosis/Pulmonary Embolism Present on Admission: No
--- NOTE | 2019-12-21 15:58 | CM.DANOTE ---
Patient is a 54 year old male who was admitted on 12/20/19 for N/V. Pt has MCR and SELIN for insurance and his PCP is Dr. Terrance Blackwell. EMR was reviewed. Per , pt with hx of diabetes and kidney disease and now with cyclic N/V. Pt in ER 2x for similar prior to admit. SW met bedside with pt and explained role and he confirms he lives in apt alone in [place] and typically is independent with ADL's but has become increasingly weak with lumbar pain the past few months and now has difficulty ambulating. Pt confirms that his exwife Aaliyah has helped him apply for [employer] CG and he was recently approved for 30 hrs a month and exwife has been a DAV[facility] CG and has an opening and will be his CG at the end of the month. Pt denies any DPOA but states he would choose his exwife and would be willing to review DPOA pwk. Pt has 2 young adult sons who live in [facility]. Pt agreeable that he needs PT eval to determine d/c needs as he has even had difficulty feeling strong enough to use cane or crutches due to lumbar/sciatica pain and then weakness from N/V and not eating enough and lost about 70 lbs in the past 3 months. Pt would be open to HH but does not currently feel he would need SNF level of care at d/c. PT ordered and pending. Plan: SW to follow for PT eval and recommendations to determine if pt safe for d/c home with possible new HH when stable for discharge. GRANT Davis Discharge Planning/Care Management CM Discharge Assessment Start: 12/21/19 15:56 Freq: Status: Active Protocol: Document 12/21/19 15:56 BF (Rec: 12/21/19 15:58 [id number]) Discharge Planning Assessment Assigned Planning Aide GRANT Lepe DPOA/Assigned Designee Name none Advance Directives? No Advance Directives on File No History Provided By Patient,Significant Other, Medical Record Has Patient been admitted in last 30 No days? Prior Living Arrangements Apartment/Condo Household Members none Type of transporation used prior to Relies on Others admit Independent with ADL's Yes: somewhat Is patient alert and oriented? Yes Needs Assistance With Managing Medications,Home Chores / Shopping Caregiver for Another No Patient/Family Preference Home with Home Health Comment Follow for PT eval and recommendations Barriers to Discharge No Discharge Plan Home with Home Health Transportation Arrangement Ex can likely provide transport Additional Comment Waiting for PT eval and recommendations Review Status In Process Please Provide Date Initial DC 12/21/19 Assessment Was Performed Next Review Type Continued Stay Review
--- NOTE | 2019-12-21 20:42 | PC.NURSE ---
Per Dr Massey, if patient hasn't voided to bladder scan. If more than 400ml in bladder to straight cath. At scan patient had estimated 215ml, encouraged patient to hydrate well and will continue to monitor.
[2019-12-21] MEDS: DOCUSATE 100 MG CAPSULE PO (21:03)
[2019-12-21] MEDS: ATORVASTATIN 20 MG TABLET 40 MG PO (21:03)
[2019-12-22] VITALS (10 sets, daily range): BP systolic 127–140; BP diastolic 53–76; PULSE 77–83; RESP 16–20; TEMP 35.9–36.4; O2SAT 96–100
[2019-12-22 05:31] LABS: Add Manual Diff / Slide Review NO; Basophils Absolute Auto 100 /uL (0-100); Basophils Percent Auto 0.6 % (0-2); Eosinophils Absolute Auto 100 /uL (0-450); Eosinophils Percent Auto 0.7 % (2-4); Hematocrit 31.2 % (41-53); Hemoglobin 10.4 g/dL (13.5-17.5); Lymphocytes Absolute Auto 1700 /uL (1100-4500); Lymphocytes Percent Auto 14.7 % (25-40); Mean Corpuscular HGB Conc 33.4 % (30-36); Mean Corpuscular Hemoglobin 27.4 PG (26-34); Mean Corpuscular Volume 82.1 fL (80-100); Monocytes Absolute Auto 900 /uL (0-900); Monocytes Percent Auto 8.1 % (3-14); Neutrophils Absolute Auto 8800 /uL (1500-7000); Neutrophils Percent Auto 75.9 % (50-75); Platelet Count 245 X10^3/uL (150-400); Red Blood Cell Count 3.79 X10^6/uL (4.5-5.9); Red Cell Distribution Width 13.9 % (11.6-14.8); White Blood Cell Count 11.6 X10^3/uL (4.5-11.0)
[2019-12-22 05:37] LABS: Alanine Aminotransferase 9 IU/L (<50); Albumin 2.9 g/dL (3.5-5.0); Albumin Globulin Ratio 1.2 (1.0-2.8); Alkaline Phosphatase 87 U/L (38-126); Aspartate Aminotransferase 17 IU/L (17-59); Bilirubin Total 0.4 mg/dL (0.2-1.3); Blood Urea Nitrogen 17 mg/dL (9-20); Calcium 8.1 mg/dL (8.4-10.2); Carbon Dioxide 24 mmol/L (22-32); Chloride 107 mmol/L (98-107); Estimated Glomerular Filt Rate 47.1 mL/min (>60); Globulin 2.4 g/dL (1.7-4.1); Glucose 49 mg/dL (70-100); HEMOLYSIS < 15 (0-50); Sodium 136 mmol/L (137-145); Total Protein 5.3 g/dL (6.3-8.2)
[2019-12-22 05:54] LABS: Potassium 2.7 mmol/L (3.4-5.1)
[2019-12-22] MEDS: ACETAMINOPHEN 325 MG TABLET 975 MG PO (07:27)
[2019-12-22] MEDS: POTASSIUM CHLORIDE 20 MEQ in SODIUM CHLORIDE 0.9% 250 ML 130 ML IV (07:29)
[2019-12-22] MEDS: DEXTROSE 50 % IN WATER 25 GM/50 ML SYRINGE IV ×2 (07:50→13:02)
[2019-12-22] MEDS: PANTOPRAZOLE 40 MG VIAL IV (09:11)
[2019-12-22] MEDS: CYCLOBENZAPRINE 5 MG TABLET PO (09:11)
[2019-12-22] MEDS: lisinopriL 20 MG TABLET 40 MG PO (09:11)
[2019-12-22] MEDS: TAMSULOSIN 0.4 MG CAPSULE PO (09:11)
[2019-12-22] MEDS: ENOXAPARIN 40 MG/0.4 ML SYRINGE SUBCUT (09:11)
[2019-12-22] MEDS: GABAPENTIN 600 MG TABLET PO ×2 (09:11→16:20)
[2019-12-22] MEDS: AMLODIPINE 5 MG TABLET 10 MG PO (09:12)
[2019-12-22] MEDS: polyethylene glycoL 3350 17 GM POWD.PACK PO (09:12)
[2019-12-22] MEDS: cloNIDine 0.1 MG TABLET PO (09:12)
[2019-12-22] MEDS: POTASSIUM CHLORIDE 40 MEQ in SODIUM CHLORIDE 0.9% 500 ML 130 ML IV (10:01)
--- NOTE | 2019-12-22 11:23 | PC.NURSE ---
Pt to Radiology via w/c for gastric emptying study
[2019-12-22] MEDS: OXYCODONE IR 10 MG TABLET PO (16:19)
--- NOTE | 2019-12-22 16:19 | PM.DS.1 ---
History of Present Illness History of Present Illness Date Patient Seen: 12/20/19 Chief complaint: Nausea/Vomiting Narrative: Written by Rob REED: Mr. Drew Kim is a 54-year-old male patient with a history significant for diabetes with neuropathy, chronic kidney disease stage 3, urinary retention with Mcgee catheter, hypertension, hyperlipidemia, morbid obesity and low back pain who presents to the ER for continuing cyclic nausea vomiting. The patient has been to the ER 2 times previously for the same complaint. On 12/14/2019 the patient was found to have urinary retention and a Mcgee catheter placed. He also was constipated and laxatives provided. His rehydrated and improved resulting in discharge home. The patient returned on 12/15 for persistent nausea vomiting. At that time the patient was evaluated treated and fluid resuscitated. He was found to have hyperglycemia without DKA and had an elevated cardiac panel finding CK to be 107, CK-MB at 2.38 with an index of 2.2% and troponin elevated at 0.35 and a proBNP of 1520. The patient was can not discharged home returning today for continued symptoms of nausea vomiting and abdominal cramping. The patient states his emesis is nonbloody and reports no hematochezia or melena. He states these abdominal pain and cramping aggravates his chronic low back pain. On further investigation the patient reports left upper chest pain that has been consistent since the onset of his symptoms. He describes the pain as dull aching, nonradiating and is pleuritic in character. He denies complaints of fevers or chills but has had intermittent diaphoresis not associated with episodes of nausea. He has chest pain as above but denies palpitations. He endorses a remote history of chest pain evaluated by Dr. Schulte approximately 10-15 years ago which time he underwent a stress test that was found to be negative. He reports no shortness of breath has had no cough or wheezing. He has generalized abdominal pain, persistent nausea and vomiting, denies diarrhea. The patient additionally endorses a large weight loss from 280 lb to 214 over the last several months. He also describes weakness and falls. Upon arrival to the ER today the patient is a temperature of 98.1?, heart rate of 104, blood pressure 182/88, respirations 20 saturating 99% on room air. A CT of the abdomen and pelvis is obtained finding air in the bladder with bladder wall diffusely thickened and diverticulosis with no notation diverticulitis. Twelve lead EKG finds sinus tach rate of 106 with left anterior fascicular block and left ventricular hypertrophy. On laboratory analysis see has an elevated white count at 16.8 with increased neutrophils at 93.5%, hemoglobin 14.0 and hematocrit of 41.7 and platelets of 300. Has a PT of 11.3, INR 1.0 and a PTT of 30. His electrolytes are within normal range with a CO of 18 and has an elevated blood sugar of 440. His calculated anion gap of 23. A VBG was obtained finding a pH of 7.34 and bicarb of 19. He has a total bilirubin of 0.6, AST of 19, ALT of 15, alkaline phosphatase 148. His troponin is found to be 0.044. Procalcitonin is requested and found to be 0.13. Urine tox screen is positive for oxycodone and marijuana. In the ER the patient received 4 L of IV fluid, Reglan 10 mg, Toradol 30 mg and regular insulin 5 units. The patient is admitted to the hospital for cyclic nausea vomiting. At time encounter is found to also have chest pain and elevated troponin which is further discussed below in assessment plan. Discharge Providers Provider Date of admission: 12/20/19 20:18 Discharge Date: 12/22/19 Primary care physician: Terrance Blackwell MD Consults: 12/20/19 19:42 Consult to REPRODUCTION ARTIST - Scroll Machine Operator Stat Comment: 12/20/19 21:44 Consult to Dietitian, Adult Routine Comment: Reason For Exam: Cyclic vomiting, diabetes with hyperglycemia 12/20/19 22:22 Consult to Dietitian, Adult Routine Comment: Reason For Exam: Reflex from admission 12/21/19 14:17 Consult to Occupational Therapy Evaluate & Treat Comment: Physician Instructions: Evaluate and treat Consult to Physical Therapy Evaluate & Treat Comment: Physician Instructions: Evaluate and Treat Discharge provider: Madonna Massey DO Summary Hospital Course Discharge Diagnosis: 1. Cyclic nausea and vomiting, secondary to gastroparesis, acute on chronic, present on admission. Active. 2. Diabetes type 2, insulin-dependent with hyperglycemia and anion gap metabolic acidosis, present on admission. Hyperglycemia and anion gap metabolic acidosis resolved. 3. Acute Type 2 NC, present on admission. Resolved. 4. Acute urinary retention, secondary to constipation, present on admission. Resolved. 5. Constipation, chronic, present on admission. Stable. 6. Chronic kidney disease stage 3, present on admission. Stable. 7. Chronic lumbar back pain with lower extremity weakness and atrophy, chronic, present on admission. Stable. Hospital Course: Drew Hartmann is a 54-year-old male with a past medical history significant for hypertension, hyperlipidemia, diabetes mellitus type 2, insulin using, with complication of diabetic peripheral neuropathy and chronic kidney disease stage 3, recent constipation with urinary retention requiring indwelling Mcgee catheter last week placed in the ED and chronic low back pain who presented to the ED for progressive worsening cyclic nausea and vomiting over the last 3 days. 1. Cyclic nausea and vomiting, secondary to gastroparesis, acute on chronic, present on admission. Acute portion resolved. -Secondary to gastroparesis likely due to uncontrolled diabetes, opiate use, and opiate induced constipation. -Patient has been to the ED 3 times in the last week for nausea and vomiting. The patient continues to have nausea and emesis which is controlled with Zofran and Reglan in the emergency department. -Patient uses marijuana daily and discussed hyperemesis cannabis and other risks associated with cannabis use. Recommended abstinence indefinitely for which the patient reports he is going to stop using marijuana. -Continued Zofran 4 mg IV every 4 hours as needed for nausea and Compazine 10 mg every 6 hours as needed for nausea. Discontinued Reglan for nuclear medicine gastric emptying study tomorrow. -Continued Protonix 40 mg IV daily for GI prophylaxis. -Continued IV fluid hydration with normal saline at 100 mL/hr until adequately taking in PO intake then discontinued and slowly advance diet as tolerated. -Nuclear medicine gastric emptying study demonstrated gastroparesis. -Started and continued Reglan 10 mg ACHS as needed for early satiety and/or nausea and vomiting. Discussed chronic regular long-term use and potential for tardive dyskinesia. 2. Diabetes type 2, insulin-dependent with hyperglycemia and anion gap metabolic acidosis, present on admission. Hyperglycemia and anion gap metabolic acidosis resolved. -Hemoglobin A1c 9.6% indicative of poor glycemic control and patient likely has gastroparesis as above. -Patient presented hyperglycemic with blood glucose 440 and anion gap 23 metabolic acidosis. -Received 4 L of normal saline and regular insulin 5 units in the ED. -Patient takes Levemir 70 units twice daily with NovoLog based on correctional scale which he reports he has not been taking due to inability to eat. Admitting provider continued Levemir 70 units twice daily but decreased dosed based on ability to take in PO intake as patient had several low blood glucose levels. Recommended half normal dose of Levemir 35 units twice daily until able to adequately take in PO intake. -Continued [facility] blood glucose checks and medium dose correctional scale insulin. 3. Acute Type 2 NC, present on admission. Resolved. -Patient with left sided non-radiating chest pain that developed with nausea and vomiting and resolved with improvement in nausea and vomiting. -EKG demonstrated sinus tachycardia with left ventricular hypertrophy and no evidence of acute ischemia such as ST elevation or depression. -Initial troponin elevated at 0.044 in setting of chronic kidney disease stage 3. Troponin peaked at 0.104 and is trended down to 0.102 with improvement in nausea and vomiting. No need to further trend. 4. Acute urinary retention, secondary to constipation, present on admission. Resolved. -Patient recently had Mcgee catheter placed in the emergency department for urinary retention and he is to follow-up with Dr. Meng. -Removed Mcgee catheter and patient was able to spontaneously void on his own with minimal postvoid residual. -Continued tamsulosin 0.4 mg daily. 5. Constipation, chronic, present on admission. Stable. -Patient with previous constipation on 12/14/2019 evident on abdominal series which is likely opiate induced and contributory to gastroparesis as well as acute urinary retention as above. -Continued MiraLax 17 g daily and Colace 100 mg twice daily of which the patient refused at times and reiterated importance of maintaining normal BMs. Ordered bisacodyl suppository as needed for persistent constipation. 6. Chronic kidney disease stage 3, present on admission. Stable. -Initial creatinine 1.69. Baseline creatinine appears to be between 1.5 and 1.7. -Continued to avoid nephrotoxic agents. -Continued IV fluid hydration until adequately hydrated then discontinued as above. -Continued to monitor creatinine daily. 7. Chronic lumbar back pain with lower extremity weakness and atrophy, chronic, present on admission. Stable. -Patient is followed by pain management in [place]. Patient has muscle wasting/atrophy of bilateral lower extremities R>L. -Continued home gabapentin 600 mg 3 times daily and oxycodone 10 mg 4 times daily as needed for pain. -Recommended patient be referred to neurology or Orthopedic surgery for assessment of spinal radiculopathy. Exam Vital Signs (past 8 hours): - 12/22/19 09:11 12/22/19 09:12 12/22/19 13:12 Temperature 97.6 F Pulse Rate 78 Respiratory Rate 16 Blood Pressure 127/53 L 127/53 L 140/56 L Pulse Oximetry 98 12/22/19 14:00 Temperature Pulse Rate Respiratory Rate Blood Pressure Pulse Oximetry 98 Oxygen Delivery Method Room Air Oxygen Flow Rate 0 Narrative Exam Narrative: General: Older gentleman sitting in bed and in no acute distress, appears older than stated age, well-developed, well-nourished, appropriately interactive. HEENT: Normocephalic, atraumatic. External ears without defect. Pupils equal, round, and reactive to light. Anicteric sclerae, moist conjunctivae, and no lid lag. Oropharynx free of erythema and cobble stoning with moist mucosa. Neck: Supple with full range of motion. No lymphadenopathy or thyromegaly. Cardiovascular: Regular rate and rhythm without murmurs, rubs, or gallops appreciated. Pulmonary: Clear to auscultation bilaterally without crackles, wheezes, or rhonchi. Normal respiratory effort with no use of accessory muscles. Abdomen: Soft, bowel sounds hypoactive, mild pain to palpation in mid abdomen, nondistended. No hepatosplenomegaly or masses appreciated. Extremities: No clubbing, cyanosis, or edema. Muscle wasting of lower extremities bilaterally R>L. Skin: Normal temperature, turgor, and texture; no rash, ulcers, or subcutaneous nodules appreciated. Neurological: Cranial nerves grossly intact. Psychiatric: Depressed mood and flat affect. Alert and oriented to person, place, and time. Objective Labs Result Diagrams: 12/22/19 04:50 12/22/19 04:50 Labs: Laboratory Results - last 24 hr 12/22/19 12/22/19 12/22/19 04:50 04:50 04:50 WBC 11.6 H RBC 3.79 L Hgb 10.4 L Hct 31.2 L MCV 82.1 MCH 27.4 MCHC 33.4 RDW 13.9 Plt Count 245 Neut % (Auto) 75.9 H Lymph % (Auto) 14.7 L [place] % (Auto) 8.1 Eos % (Auto) 0.7 L Baso % (Auto) 0.6 Neut # (Auto) 8800 H Lymph # (Auto) 1700 [place] # (Auto) 900 Eos # (Auto) 100 Baso # (Auto) 100 Sodium 136 L Potassium 2.7 L* D Chloride 107 Carbon Dioxide 24 BUN 17 Creatinine 1.55 H Estimated GFR 47.1 L BUN/Creatinine Ratio 11.0 Glucose 49 L D Calcium 8.1 L Magnesium 2.0 Cancelled Total Bilirubin 0.4 AST 17 ALT 9 Alkaline Phosphatase 87 D Total Protein 5.3 L Albumin 2.9 L Globulin 2.4 Albumin/Globulin Ratio 1.2 Discharge Plan Discharge Plan Patient Disposition: Home Health Service Discharge comment: You are being discharged home with home health for physical and occupational therapy. You have gastroparesis or slow emptying of your stomach due to diabetes, narcotics, and constipation. You can continue taking MiraLax 17 g daily and Colace 100 mg twice daily to prevent constipation and have regular bowel movements. You have been prescribed metoclopramide 10 mg 3 times daily with meals ONLY as needed for nausea/vomiting or early satiety/fullness. Please only use this medication as needed as it may cause tardive dyskinesia with chronic long-term regular use. Please continue to monitor your blood glucose level frequently (4 times a day including fasting and 3 measurements 2 hours after meals) as you have had intermittent low blood glucose levels which are an emergency and can be life-threatening. You may continue taking your Levemir but would recommend half your normal dose until you are eating and drinking normally. Please follow-up with your primary care physician, Dr. Blackwell, regarding your hospitalization for treatment of gastroparesis and diabetic management. Recommend you be evaluated by neurology and/or orthopedic surgery for your lower extremity weakness and back pain. Discharge orders & Medications Prescriptions: New metoclopramide HCl 10 mg tablet 10 mg PO QACHS PRN (Reason: nausea and vomiting, early satiety) Qty: 30 RF: 0 polyethylene glycol 3350 17 gram Powder In Packet 17 gm PO DAILY Qty: 30 RF: 0 docusate sodium [DOK] 100 mg Capsule 100 mg PO BID Qty: 60 RF: 0 Glucose Bits 1 gram tablet,chewable 1 gram PO Q15M PRN (Reason: hypoglycemia) Qty: 30 RF: 0 Continued amlodipine 10 MG tablet 10 mg PO DAILY Qty: 0 RF: 0 omeprazole 20 MG capsule,delayed release(DR/EC) 20 mg PO QDAY Qty: 0 RF: 0 lisinopril 40 MG tablet 40 mg PO QDAY Qty: 0 RF: 0 atorvastatin [Lipitor] 40 MG tablet 40 mg PO DAILY Qty: 0 RF: 0 promethazine 25 mg tablet 12.5 - 25 mg PO Q6H PRN (Reason: nausea and vomiting) Qty: 10 RF: 0 dicyclomine 10 mg capsule 10 - 20 mg PO TID Qty: 14 RF: 0 oxycodone 10 mg Tablet 10 mg PO QID PRN (Reason: Back Pain) RF: 0 clonidine HCl 0.1 mg tablet 0.1 mg PO BID RF: 0 gabapentin 600 mg tablet 600 mg PO TID Qty: 90 RF: 0 Discontinued Basaglar KwikPen U-100 Insulin 100 UNIT/1 ML insulin pen 100 unit SQ QDAY Qty: 0 RF: 0 Follow up/Referrals: Jami Magana MD [Non-Staff] - Terracne Blackwell MD [Primary Care Provider] - 1 Week Diet/Activity/Treatments Diet: Carb-consistent/Diabetic, Low-fat, Low-sodium and Low-cholesterol Activity: Activity as tolerated with crutches and physical and occupational therapy Visit Report/Discharge Packet Instructions: Learn Your Diabetic ABCs, DI for Constipation, DI for Diabetes Type 2, DI for Diabetic Neuropathy, DI for Hypoglycemia, DI for Tardive Dyskinesia, Diabetes and Foot Care, DI for Gastroparesis, DI for Cyclic Vomiting Syndrome-Child Visit Report Forms: Patient Portal/API, Stroke Signs & Symptoms Discharge Data Primary Care Provider: Terrance Blackwell Attending Provider: Rob Reece Admit Date/Time: 12/20/19 20:18 Discharges patient from system. Discharge Date/Time: 12/22/19 18:30 Quality VTE Deep Vein Thrombosis/Pulmonary Embolism Present on Admission: No
--- NOTE | 2019-12-22 16:38 | OT.IPNOTE ---
Pt in bed and in too much pain to see OT at this time and not wanting to get up at this time. Pt states showering was difficulty as shower chair is wobbly. Suggested tub bench and gave pt equipment list to try to call around to get a tub bench to increase his safety and independence to get into and out of the tub. Pt states also has difficulty to stand long enough to cook and has to stand by the refrigerator to eat. Since unable to see pt up on his feet spoke of possible use of wc or 4WW pending his mobility needs and that home health can look and work with pt for safety and appropriateness if able to get a 4ww. Pt states feels it would be beneficial to have a 4WW so that he could sit and move items around. NO OT charge as unable to see pt up but able to give suggestions and would benefit from home health OT.
--- NOTE | 2019-12-22 16:49 | PT.IIE ---
Surgical History (Last Updated 12/21/19 @ 04:20 by BRIANNA Koch) History of appendectomy (Acute) History of cataract surgery (Acute) Medical History (Last Reviewed 12/21/19 @ 04:20 by BRIANNA Koch) Back pain (Acute) Depression (Acute) Diabetes (Acute) Diabetic peripheral neuropathy associated with type 2 diabetes mellitus (Acute) Facet arthropathy, lumbosacral (Acute) Herniated nucleus pulposus, L4-5 (Acute) Hyperlipidemia (Acute) Hypertension (Acute) Morbid obesity due to excess calories (Acute) Ventral hernia (Acute) Physical Therapy Inpatient Evaluation/Re-Eval M1 PT/OT-IP Prior Functional Status Start: 12/21/19 14:56 Freq: NEEDED Status: Active Protocol: Document 12/22/19 16:13 AW (Rec: 12/22/19 16:49 AW [email or web address]) Medical Review Prior Functional Status Medical History Reviewed Yes Communication WNL. Pt is able to make needs known. Mobility and Gait Pt has been using B axillary crutches for the past two months. Prior to that, he used a SPC for ~7-8 months following a fall in the shower which exacerbated his chronic back pain. 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 Activities of Daily Living and IADL's Pt's ex- has been assisting the pt at home. She lives three minutes away and is now certified as a DAVID caregiver. She will officially be providing 30 hours weekly starting on 12/25. She has been providing assist with cooking and cleaning as well as occasional assist to get to the bathroom and for showers. Social History Household Members none Living Arrangements House Number of Floors (Floors) One Floor Number of Stairs To Enter/Railing? 1 KARLENE without railing Home Environment Standard Height Toilet,Tub/ Shower Home Equipment Straight Cane,Crutches Employment Status Unemployed Additional Social History Comment Pt lives alone and is on SSDI. His ex-, Aaliyah, has been providing assist and will continue to do so as a DAVID caregiver. M2 PT-IP Current Condition Start: 12/21/19 14:56 Freq: NEEDED Status: Active Protocol: Document 12/22/19 16:13 AW (Rec: 12/22/19 16:49 AW [email or web address]) Physical Therapy Current Condition Current Condition Evaluation Date 12/22/19 Treatment Diagnosis gastroparesis; chronic back pain; difficulty in walking Onset Date 12/19/19 M3 PT-IP Subjective Start: 12/21/19 14:56 Freq: NEEDED Status: Active Protocol: Document 12/22/19 16:13 AW (Rec: 12/22/19 16:49 AW [email or web address]) Subjective Physical Therapy Visit Type Type Initial Evaluation Visit Start Time 13:10 Visit Stop Time 15:56 Total Visit Minutes 29 Notes Pt was off the floor multiple times today for nuc med gastric emptying procedure. PT saw the pt before and after he returned to the floor. Number of [employer]IP[employer] GUN Visits 0 Physical Therapy Visit Comments Patient Comments Pt is reporting 8/10 back pain but is willing to participate with PT. Patient Goals Pt hopes to return home with caregiver assist Therapy Pain Assessment Pain When Pain Assessed During Mobility Pain Present Pain Present Pain Reported Location Back Intensity 9 Pain Management Techniques Re-positioning M4 PT-IP Mobility and Gait Start: 12/21/19 14:56 Freq: NEEDED Status: Active Protocol: Document 12/22/19 16:13 AW (Rec: 12/22/19 16:49 AW [email or web address]) PT-Bed Mobility Assessment Rolling Type of Rolling Log Rolling,Roll to Left Level of Assist Standby Assistance Supine to Sit Supine to Sit Standby Assistance Scooting Scooting to Edge of Bed Standby Assistance PT-Transfer Assessment Sit to and From Stand Sit to and from Stand Standby Assistance,Use of Upper Extremities Equipment Transfer Assistive Device Gait Belt,Axillary Crutches Orthotic/Prosthetic Devices or Brace: No Transfers Transfer Destination Bed,Chair Transfer Technique pt ambulated with B axillary crutches Transfer Ability Level of Assist Standby Assistance,Use of Upper Extremities Comments Mobility Comments Pt was lying in supine as PT entered the room. He was able to complete log roll to his left side and sidelying to sit transition SBA with increased time (~25 seconds). Pt used crutches to assist with standing from the bed in its lowest position SBA. He ambulated in the hallway, advancing the crutches at the same time and then taking two steps ~50 feet SBA. He was fatigued and requested to sit. PT conducted strength and sensation assessment while pt rested. Pt then stood with the crutches and returned to the room 50 feet SBA. He returned to the bed with good log roll technique SBA and then positioned himself on his right side. Gait Assessment Gait Gait Assistance Required: Standby Assistance Distance (Feet) 50 Assistive Devices Assistive Device Gait Belt,Axillary Crutches Orthotic/Prosthetic Devices or Brace: No Gait Deviations General Gait Pattern Antalgic,Decreased Stride Length,Decreased Feet Clearance,Flexed Trunk,Step-to Gait Comments Gait Comments Gait was characterized by decreased stance time R LE and decreased step length L LE. Pt advanced both crutches simultaneously and then took two steps with heightened energy expenditure noted. Pt states he is unable to use a walker at home as his space is too small for the walker to fit. Stair Climbing Assessment Comments Stair Climbing Comments Not assessed PT-Balance Assessment Sitting Balance and Reactions Static Sitting Balance Ability Good Dynamic Sitting Balance Ability Good Standing Balance and Reactions Static Standing Balance Ability Fair Dynamic Standing Balance Ability Fair Device Used axillary crutches M5 PT-IP Objective Assessments Start: 12/21/19 14:56 Freq: NEEDED Status: Active Protocol: Document 12/22/19 16:13 AW (Rec: 12/22/19 16:49 AW [email or web address]) Orientation Orientation/Cognition Level of Alertness Alert Orientation Name,Day of Week,Place, Situation Language Function Ability No Deficits Noted Safety Awareness Decreased Safety Awareness Memory Description No Deficits Noted Gross Range of Motion Lower Extremity ROM Assessment Right Impaired Impairments Knee extension lacking ~10 degrees. Pt unable to dorsiflex right ankle to neutral. Strength Lower Extremity Strength Assessment Right Impaired Hip 3-/5 Knee 3-/5 Ankle 3-/5 Comments Strength Comments L LE grossly 4/5 Coordination Assessment Gross Coordination Gross Coordination WNL Sensation Assessment Sensation Gross Sensation Right LE Impaired,Left LE Impaired Light Touch Impaired Proprioception (Position) Impaired Sensation Description Numbness,Tingling,Burning Comments Sensation Comments Light touch impairment apparent on clinical exam with R more affected than L. Pt also reports radicular pain affecting the RLE from hip to knee. Muscle Tone Muscle Tone WNL No Muscle Tone Location Right Lower Extremity Type of Tone Hypotonicity Comments Muscle Tone Comments Hypotonia and atrophy of R LE. M6 PT-IP Treatment Start: 12/21/19 14:56 Freq: NEEDED Status: Active Protocol: Document 12/22/19 16:13 AW (Rec: 12/22/19 16:49 AW [email or web address]) Physical Therapy Treatment Education Education Provided Safety Other Treatments Other Treatment Performed Provided education on rationale for selection of an assistive device. Pt states he could possibly use a walker everywhere at home except for the bathroom. M7 PT-IP Assessment and Plan Start: 12/21/19 14:56 Freq: NEEDED Status: Active Protocol: Document 12/22/19 16:13 AW (Rec: 12/22/19 16:49 AW [email or web address]) PT Summary Assessment and Plan Potential Rehabilitation Potential Fair Status of Condition at Evaluation Evolving Summary Impairments Pain,ROM,Strength,Balance, Sensation,Tone,Transfers,Gait, Activity Tolerance Assessment Summary Germán is a 54 yo man seen for PT evaluation with admitting diagnosis of gastroparesis. He has chronic back pain and has recently resorted to using bilateral axillary crutches due to worsening right leg pain and weakness. Pt has fallen 10 times in the past year. On evaluation, he presents with significant R LE weakness, impaired balance, and impaired gait. He is limited in his ambulation tolerance to 50 feet with crutches. Pt will be safe to discharge home with caregiver assist which is already in place but would also benefit from home health PT and OT to address safety in the home and to conduct gait training with least restrictive assistive device. Frequency of Treatment Frequency Of Treatment Discharge Recommendations To Nursing Amount of Assist Needed Standby Assistance Discharge Recommendations PT Discharge Recommendations Home with Assistance,Home Health Transportation Needs at Discharge Private Vehicle
--- NOTE | 2019-12-24 10:28 | CM.DPNOTE ---
Addendum entered by GRANT Pena 12/24/19 10:40: In addition, DC Summary has not been signed. Original Note: This [employer] scheduled for DC planning today; saw note left from prior DC town planner on desk stating Dr Massey requested the DC planning team make a HH referral late in the afternoon 7..20 vs 7.24.20 (?) F2F signed today, although, review of chart note 12.21.19 does not indicate HH choice or referral had been done. This [employer] does not feel comfortable making this HH referral today and d/t caseload demands, unable to place call to patient/family to discuss this. JW
--- NOTE | 2020-01-02 16:56 | PC.NURSE ---
Late Entry: Potassium infusion initiated on 12/21 at 10:01 complete at 14:01.
== END 2019-12-22 18:30 | disposition home health service (06) ==
LOC: ED 20:16 → AC 20:22
PROVIDERS: Emergency Medicine; Internal Medicine; Admitting Provider Nurse Practitioner Adult Health; Emergency Provider Nurse Practitioner; Family Provider Nurse Practitioner Gerontology; PCP Internal Medicine; Referring Provider Nurse Practitioner; Visit Provider Nurse Practitioner Adult Health
DX: R11.2 Nausea with vomiting, unspecified (principal); R19.7 Diarrhea, unspecified; E11.65 Type 2 diabetes mellitus with hyperglycemia; Z79.4 Long term (current) use of insulin; R33.9 Retention of urine, unspecified; K59.09 Other constipation; N18.3 Chronic kidney disease, stage 3 (moderate); M54.5 Low back pain; R53.1 Weakness; E66.01 Morbid (severe) obesity due to excess calories; I10 Essential (primary) hypertension; E78.5 Hyperlipidemia, unspecified; I21.A1 Myocardial infarction type 2; F12.90 Cannabis use, unspecified, uncomplicated; Z11.59 Encounter for screening for other viral diseases
CPT/HCPCS: 36415; 74177; 78264; 80048; 80053; 80305; 81001; 82550; 82805; 82962; 83036; 83690; 83735; 83880; 84100; 84145; 84484; 85025; 85610; 85730; 87635; 93005; 93306; 96361; 96372; 96374; 96375; 96376; 97161; 99284; A9541; G0378; C9113; J1650; J1885; J2405; J2765; J3480; Q9967

== ENCOUNTER → 2020-01-06 15:39 | Outpatient (CLI) | payer MEDICARE, MEDICAID, SELFPAY ==
[2019-12-20 22:06] VITALS: BMI 30.8
--- NOTE | 2020-01-06 15:43 | DI.MRI.S_ITS ---
PROCEDURE: MR LUMBAR SPINE WO CON INDICATIONS: SCIATICA, RIGHT SIDE TECHNIQUE: Noncontrast sagittal T1 spin echo and T2 fast echo, sagittal STIR, axial T1 and T2 fast spin echo through the lumbar spine. In cases with scoliosis, additional coronal T2 fast spin echo may be performed. COMPARISON: None. FINDINGS: Image quality: Excellent. Alignment and Curvature: There is normal bony alignment. Bone Marrow: Marrow is of normal overall signal. No acute vertebral body compression fractures. Spinal Cord: Conus medullaris terminates at the T12-L1 level. Visualized cord demonstrates normal signal and size. Paraspinous Soft Tissues: No paravertebral masses. T12-L1: Normal appearance. L1-L2: Normal appearance. L2-L3: The disc height is well-preserved. Loss of disc signal is seen at this level. Mild to moderate disc bulge is seen. No significant neural foraminal narrowing is seen. Mild central canal narrowing is seen. L3-L4: The disc height is well-preserved. Loss of disc signal is seen at this level. Mild to moderate disc bulge is seen. No significant neural foraminal narrowing is seen. Mild central canal narrowing is seen. L4-L5: Mild loss of disc height is seen. There is moderate disc bulge seen, with a central/right disc extrusion, with mild inferior migration of the disc material. Moderate facet joint hypertrophy is seen. There is mild left-sided and moderate right-sided neural foraminal narrowing seen. Mild central canal narrowing is seen. L5-S1: No significant abnormality is seen. IMPRESSION: Lumbar spine degenerative changes are seen, including a right-sided disc extrusion at the L4-5 level, with associated moderate right-sided neural foraminal narrowing. Dictated by: Kervin Jo M.D. on 01/06/2020 at 16:29 Approved by: Kervin Jo M.D. on 01/06/2020 at 16:32
== END ==
PROVIDERS: Family Provider Nurse Practitioner Gerontology; PCP Internal Medicine; Referring Provider Physician Assistant; Visit Provider Physician Assistant
DX: M51.16 Intervertebral disc disorders with radiculopathy, lumbar region (principal); M62.561 Muscle wasting and atrophy, not elsewhere classified, right lower leg; M51.9 Unspecified thoracic, thoracolumbar and lumbosacral intervertebral disc disorder; M47.26 Other spondylosis with radiculopathy, lumbar region
CPT/HCPCS: 72148

== ENCOUNTER → 2020-02-21 07:05 | Outpatient (CLI) | payer MEDICARE, MEDICAID, SELFPAY ==
[2019-12-20 22:06] VITALS: BMI 30.8
--- NOTE | 2020-02-21 | DI.MRI.S_ITS ---
PROCEDURE: MR THORACIC SPINE WO CON INDICATIONS: RIGHT LEG WEAKNESS TECHNIQUE: Noncontrast sagittal T1 spine echo and T2 fast spin echo, sagittal STIR, axial T1 and T2 fast spin echo through the thoracic spine. COMPARISON: None. FINDINGS: Image quality: Excellent. Alignment and Curvature: There is mild diffuse thoracic kyphosis, and otherwise normal bony alignment. Bone Marrow: Marrow is of normal overall signal. No acute vertebral body compression fractures. Spinal Cord: Visualized spinal cord is normal in size and signal. Paraspinous Soft Tissues: No paravertebral masses. Miscellaneous: Multilevel disc desiccation. Multilevel facet hypertrophy. Mild multilevel canal and foraminal stenosis. No neural impingement. IMPRESSION: 1. Multilevel degenerative disc and facet disease, causing mild multilevel canal and foraminal stenoses. No neural impingement. Dictated by: Mimi Bui M.D. on 02/21/2020 at 8:35 Approved by: Mimi Bui M.D. on 02/21/2020 at 8:36
== END ==
PROVIDERS: Family Provider Nurse Practitioner Gerontology; PCP Internal Medicine; Referring Provider Orthopaedic Surgery; Visit Provider Orthopaedic Surgery
DX: R29.898 Other symptoms and signs involving the musculoskeletal system (principal); M47.814 Spondylosis without myelopathy or radiculopathy, thoracic region; M48.04 Spinal stenosis, thoracic region
CPT/HCPCS: 72146

== ENCOUNTER → 2020-04-18 12:38 | Outpatient (CLI) | payer MEDICARE, MEDICAID, SELFPAY ==
[2019-12-20 22:06] VITALS: BMI 30.8
--- NOTE | 2020-04-18 | DI.RAD.S_ITS ---
PROCEDURE: XR LUMBAR SPINE MIN 4V INDICATIONS: lumbar spondy TECHNIQUE: 5 views of the lumbar spine acquired. COMPARISON: None. FINDINGS: Bones: 3 nonrib-bearing vertebrae are present. There is normal bony alignment. No vertebral body compression fractures. No suspicious bony lesions. Severe degenerative changes are present in the lower thoracic spine including anterior wedging of flowing syndesmophytes. Mild degenerative changes are present within the lumbar spine including small osteophytes. No spondylolisthesis. Soft tissues: Overlying bowel gas pattern is normal. No suspicious soft tissue calcifications. Flexion/extension: There is limited range of motion, with preserved normal alignment. IMPRESSION: 1. Degenerative change. 2. Limited range of motion. No subluxation on flexion/extension. Dictated by: Peggy Diaz M.D. on 04/18/2020 at 15:06 Approved by: Peggy Diaz M.D. on 04/18/2020 at 15:07
[2020-04-18 14:43] LABS: Alanine Aminotransferase 24 IU/L (<50); Albumin 4.1 g/dL (3.5-5.0); Albumin Globulin Ratio 1.2 (1.0-2.8); Alkaline Phosphatase 175 U/L (38-126); Aspartate Aminotransferase 22 IU/L (17-59); Bilirubin Total 0.4 mg/dL (0.2-1.3); Bilirubin Unconjugated 0.2 mg/dL (0.0-1.1); Creatine Kinase 117 U/L (55-170); Globulin 3.4 g/dL (1.7-4.1); HEMOLYSIS < 15 (0-50); Total Protein 7.5 g/dL (6.3-8.2)
[2020-04-20 16:39] LABS: Aldolase 4.3 U/L (3.3-10.3)
== END ==
PROVIDERS: Family Provider Nurse Practitioner Gerontology; PCP Internal Medicine; Referring Provider Internal Medicine; Visit Provider Neuromusculoskeletal Medicine, Sports Medicine
DX: M47.816 Spondylosis without myelopathy or radiculopathy, lumbar region (principal); M62.89 Other specified disorders of muscle; R20.2 Paresthesia of skin; R29.898 Other symptoms and signs involving the musculoskeletal system; M54.16 Radiculopathy, lumbar region; E11.42 Type 2 diabetes mellitus with diabetic polyneuropathy
CPT/HCPCS: 36415; 72110; 80076; 82085; 82550; 83516; 86235